=== PATIENT | female | born 1945 | race Caucasian/White ===

== ENCOUNTER 2019-04-22 19:05 | Inpatient (IN) | payer MEDICARE, SELFPAY ==
[2019-04-22 19:06] VITALS: BP 153/59; PULSE 80; RESP 22; TEMP 36.2; O2SAT 98; BMI 24.3
--- NOTE | 2019-04-22 19:07 | EKG12_ITS ---
Test Reason : CP Blood Pressure : / mmHG Vent. Rate : 065 BPM Atrial Rate : 065 BPM P-R Int : 174 ms QRS Dur : 074 ms QT Int : 398 ms P-R-T Axes : 050 -33 008 degrees QTc Int : 413 ms Sinus rhythm with marked sinus arrhythmia Left axis deviation Inferior infarct , age undetermined Abnormal ECG Confirmed by ATUL MEYERS, KATHY ([id number]), pictures editor EMILY CAVANAUGH ([id number]) on 04/24/2019 1:13:06 PM Referred By: Bee Prescott Confirmed By:KATHY POLLARD MD
--- NOTE | 2019-04-22 19:07 | RAD_ITS ---
STUDY: X-RAY CHEST REASON FOR EXAM: Female, 74 years old. CHEST PAIN, QUESTIONABLE STEMI TECHNIQUE: Single frontal view of the chest. COMPARISON: None. FINDINGS: Left basilar atelectasis. There is no demonstrated pleural abnormality. Normal size heart. Normal mediastinum and leyla. Normal visualized pulmonary arteries. Normal visualized aortic arch and descending thoracic aorta. Normal visualized thoracic spine. Normal visualized ribs, clavicles, and shoulders. There is no demonstrated abnormality of the visualized soft tissue structures of the upper abdomen. RAD/Chest 1 View (Portable) IMPRESSION: Left basilar atelectasis. Electronically Signed: Vladimir Alaniz MD at 19:38 EST Tel , Service support ,
[2019-04-22 19:08] VITALS: BP 153/59; PULSE 73; RESP 16; O2SAT 100
--- NOTE | 2019-04-22 19:16 | ED.RN ---
UPON ARRIVAL TO ER AND EKG DR MORGAN STATES PATIENT IS NOT CURRENTLY A STEMI. RN WILL CONTINUE TO MONITOR PATIENT.
--- NOTE | 2019-04-22 19:18 | ED.VISSUMM ---
- ER Visit Summary Date of Service: 04/22/19 Chief Complaint: Chest pain History of Present Illness: The patient is a 74 F history of diabetes hypertension high cholesterol. Patient states that she had a prior heart cath prior to her hip fracture in the past. She denies any history of cardiac disease or stents. She denies any recent exertional chest pain or exertional dyspnea. She denies any recent hospitalization or travel. She did recently have teeth extracted. She denies any leg pain or swelling. No hemoptysis. No pleuritic pain. She is never had a DVT or PE. Recently she had teeth extracted she took ibuprofen tonight for jaw discomfort. Today after she took that she started getting chest pain and then started having nausea vomiting. Associated chest pain with diaphoresis and mild shortness of breath. Lino said initial EKG was concerning for ST elevation in anterior leads with reciprocal inferior changes and they sent a second EKG was much improved and a third which was basically resolved Physical Examination: Older female no acute distress vital signs are stable afebrile. Initial blood pressure 153/59. H EENT exam unremarkable except recently extracted dentition. No significant facial swelling. Neck nontender. No lymphadenopathy. Lungs clear to auscultation bilaterally. Heart regular rate and rhythm rate of about 65 no murmur. Chest wall nontender. No signs of trauma. No ecchymosis or bruising no subcu air or crepitus. Abdomen soft nontender normal bowel sounds no peritoneal signs. Extremities moves all 4. Calves nontender no edema or cords. Radial pulses equal and symmetrical. Neurologically the patient is awake and alert with no focal motor deficits. Test Results: Initial EKG shows sinus rhythm rate of 65. On this EKG there is no ST elevation. Chest x-ray shows no acute abnormality. Normal cardiac silhouette portable 1 view read both myself and radiologist. CBC white count of 12. Hemoglobin 12. Electrolytes unremarkable BUN is 16 creatinine 1.3. Gap of 8. Troponin normal. Emergency Department Course and Treatment: Patient was treated with aspirin prior to arrival by the lino. An inch of Nitropaste will be placed. She is being placed in the chest pain protocol will need to be admitted. I have already discussed her initial presentation with the on-call ST elevation stone layer and will call him back now that she is arrived and I have examined the patient and have an emergency department EKG. Treatment Plan: Discussed the care a second time with Dr. Weber of cardiology. Patient will be started on heparin bolus and drip for an acute coronary symptom. And also p.o. Brilinta. Already received aspirin. And had a topical nitro on. Her pain is almost completely resolved. Disposition: Admission Impression: Acute chest pain Acute coronary syndrome. This note was generated with [employer] dictation software. It may contain incorrect words, spelling, and punctuation that were not noted in review of the chart prior to signing ED Disposition - Plan for ED Patient: Referrals: [facility] Doctor,Out of [NON-STAFF] -
[2019-04-22 19:24] VITALS: BP 153/59; PULSE 77
[2019-04-22] MEDS: Nitroglycerin Oint 1 INCH PACKET TRANSDERM. (19:24)
[2019-04-22 19:25] LABS: Absolute Lymphocyte Count 2.37 X10^3/uL (0.83-4.51); Absolute Neutrophil Count 9.2 X10^3/uL (2.0-7.7); Basophil# 0.04 X10^3/uL; Basophil% 0.3 % (0-1); Eosinophil# 0.14 X10^3/uL; Eosinophils% 1.1 % (0-5); Hematocrit 37.2 % (37-47); Hemoglobin 12.1 g/dL (12.0-15.0); Lymphocyte # 2.37 X10^3/ul (4.0); Lymphocyte % 18.5 % (19-41); Mean Corp Hgb Conc 32.5 g/dL (32-36); Mean Corpuscular Hgb 29.9 pg (27.0-32.0); Mean Corpuscular Volume 91.9 fL (81-99); Mean Platelet Vol. 10.2 fl (6.2-12.0); Monocyte# 1.07 X10^3/uL; Monocyte% 8.3 % (0-10); NRBC Flagged by Analyzer 0 % (0-5); Neutrophil # 9.17 X10^3/uL (2.7-7.7); Neutrophil % 71.5 % (47-70); Platelet Count 282 K/mm3 (150-450); RBC Distribution Width CV 11.9 % (11.6-14.6); RBC Distribution Width SD 40.3 fl (35.1-43.9); Red Blood Count 4.05 M/mm3 (4.2-5.4); White Blood Count 12.8 K/mm3 (4.4-11.0)
[2019-04-22 19:59] LABS: Anion Gap 8 (5-15); BUN 16 mg/dL (7-18); BUN/Creat Ratio 11.9 RATIO (10-20); Calcium,Total 9.5 mg/dL (8.5-10.1); Chloride 105 mmol/L (98-107); Creatinine, Serum 1.34 mg/dL (0.55-1.02); EST Glomerular Filtration Rate 41 mL/min (>60); Est Glom Filt Rate - Afr Amer 50 mL/min (>60); Estimated Creatinine Clearance 40.43 ml/min; Glucose 166 mg/dL (74-106); Potassium 4.2 mmol/L (3.5-5.1); Sodium Level 139 mmol/L (136-145)
[2019-04-22 20:00] VITALS: BP 135/56; PULSE 83; RESP 17; O2SAT 99
[2019-04-22] MEDS: TICAGRELOR 90 MG TABLET 180 MG PO (20:27)
[2019-04-22] MEDS: Heparin Injection (Vial) 5,000 UNIT/ML VIAL 5000 UNIT IV (20:30)
[2019-04-22] MEDS: HEPARIN/D5w 25,000 UNITS 25,000 UNITS/250 ML IV.SOLN. 11 UNITS IV (20:33)
[2019-04-22 20:40] VITALS: BP 129/87; PULSE 76; RESP 16; O2SAT 99
[2019-04-22 20:55] LABS: Partial Thromboplast Time 29.2 Seconds (24.1-36.2)
--- NOTE | 2019-04-22 22:13 | PCM.HP.STD ---
Problem List (1) Unstable angina Status: Acute (2) HTN (hypertension) Status: Chronic (3) Diabetes Status: Chronic History of Present Illness Date of Admission: 04/22/19 Chief Complaint: chest pain The patient is a 74 year old F with a significant history of urgency disease; diabetes mellitus; hypertension; hyperlipidemia and CKD who presented with excruciating substernal chest pain that started less than 5 minutes after taking ibuprofen for jaw pain secondary to to having multiple teeth pulled out. Her chest pain felt like somebody sitting on her chest. It also felt like she was in a vise. A chest pain was nonradiating.. Her symptoms started on the same day of presentation. Patient had 13 teeth pulled out 3 days ago. Because she typically has abdominal upset with ibuprofen she ate Jell-O after which she took the ibuprofen. After taking the ibuprofen she had nausea and she vomited 2 times. Also she had chest pain as stated above. Further she had shortness of breath and it was difficult for her to talk. Further she had diaphoresis. At the field initial EKG by the paramedics showed ST elevation in anterior leads. A second EKG showed ST elevation resolving. And and a third EKG showed a completely resolved ST elevation. Emergent department doctor discussed the case with a veterinary receptionist. Patient had already received 3 baby aspirin by the paramedics. At the emergency department patient was given Brilinta and was given heparin bolus and drip. Also nitroglycerin paste was placed on her chest. EKG at the emergency department showed Q waves in inferior leads. Past Medical History Past Medical History (Chronic Problems): Chronic Problems HTN (hypertension) (Chronic) Diabetes (Chronic) Allergies famotidine Allergy (Verified 04/22/19 19:23) Other shellfish derived Allergy (Verified 04/22/19 19:23) Anaphylaxis Home Medications: Ambulatory Orders Medication Instructions Recorded Amlodipine [Norvasc] 5 mg PO QHS 04/22/19 Aspirin [Adult Low Dose Aspirin EC] 81 mg PO DAILY 04/22/19 Atorvastatin Calcium 40 mg PO QHS 04/22/19 Carbidopa/Levodopa [Sinemet 1 tab PO TID 04/22/19] Ergocalciferol [Vitamin D] 1 cap PO QMONTH 04/22/19 Losartan Potassium [Cozaar] 12.5 mg PO QHS 04/22/19 Metformin HCl 850 mg PO BIDAC 04/22/19 traMADol [Ultram] 50 mg PO QHS PRN PRN 04/23/19 Surgical History: - - Multiple teeth pulled out and now with dentures Lives: Alone Smoking Status: Current every day smoker Tobacco Use: Vapor Alcohol: None - *Family History Maternal History Items: Cancer Paternal History Items: Pulmonary Disease Review of Systems Constitutional: Denies: Chills, Fever, Weight Change HEENT: Denies: Head Aches, Sinus Congestion, Sinus Drainage Cardiovascular: Reports: Chest Pain. Denies: Palpitations Respiratory: Reports: Shortness of Breath. Denies: Cough, Shortness of breath at rest, Sputum production Gastrointestinal: Reports: Nausea, Vomiting. Denies: Abdominal Pain Genitourinary: Denies: Dysuria Musculoskeletal: Denies: Joint Pain, Joint Tenderness Skin: Denies: Rash, Wounds Neurological: Denies: Numbness, Tingling, Focal weakness Psychiatric: Denies: Anxiety, Depression, Homicidal Ideations, Suicidal Ideations Hematologic/ Lymphatic: Denies: Easy Bruising, Easy Bleeding VTE Information - Inpt Only VTE Present on Admission: No VTE Mechan Device Prophylaxis: None VTE Pharm Prophylaxis ordered?: Yes Patient Problems: Active and Suspected Problems Unstable angina (Acute) - Physical Exam Vitals/I&O's: Vital Signs Temp Pulse Resp BP Pulse Ox 97.1 F L 76 16 129/87 H 99 04/22/19 19:06 04/22/19 20:40 04/22/19 20:40 04/22/19 20:40 04/22/19 20:40 Oxygen Flow Rate (L/min) 2 Oxygen Delivery Method Nasal Cannula Weight: 76.8 kg Body Mass Index (BMI) 24.3 General: Alert, Oriented x3, Cooperative HEENT: Atraumatic, PERRLA, EOMI, Normocephalic Neck: Supple, No JVD, Negative Carotid Bruits Lungs: Clear to auscultation, Normal air movement Cardiovascular: Regular rate, No murmurs Abdomen: Bowel Sounds Present, Soft, Non Tender Extremities: No edema, Capillary Refill Less than 3 Seconds Skin: No rashes, No breakdown Musculoskeletal: No Tenderness to Palpation of Joints or Extremities Neurological: Cranial nerves II-XII grossly intact Psych/Mental Status: Normal Affect, Appropriate Laboratory Results 04/22/19 19:12: WBC 12.8 H, RBC 4.05 L, Hgb 12.1, Hct 37.2, MCV 91.9, MCH 29.9, MCHC 32.5, RDW Std Deviation 40.3, RDW Coeff of Abbie 11.9, Plt Count 282, MPV 10.2, Immature Gran % (Auto) 0.300, Neut % (Auto) 71.5 H, Lymph % (Auto) 18.5 L, [place] % (Auto) 8.3, Eos % (Auto) 1.1, Baso % (Auto) 0.3, Absolute Neuts (auto) 9.2 H, Absolute Lymphs (auto) 2.37, Nucleated RBC % 0 04/22/19 19:12: Sodium 139, Potassium 4.2, Chloride 105, Carbon Dioxide 26.0, Anion Gap 8, BUN 16, Creatinine 1.34 H, Estim Creat Clear Calc 40.43, Est GFR (MDRD) Af Amer 50 L, Est GFR (MDRD) Non-Af 41 L, BUN/Creatinine Ratio 11.9, Glucose 166 H, Calcium 9.5, Troponin I < 0.015 04/22/19 19:12: APTT 29.2 Current Medications Heparin Sodium (Porcine) (Heparin Na) 0 unit IV UD PRN; Protocol Heparin Sodium/Dextrose () 25,000 units in 250 mls @ 11 mls/hr IV .[id number] [facility]; Protocol Last Admin: 04/22/19 20:33 Dose: 1,100 units/hr, 11 mls/hr Documented by: Assessment/Plan All Active Problems Unstable angina (Acute) The patient is a 74 year old F with a significant history of urgency disease; diabetes mellitus; hypertension; hyperlipidemia and CKD who presented with excruciating substernal chest pain that started less than 5 minutes after taking ibuprofen for jaw pain secondary to to having multiple teeth pulled out concerning for unstable angina. NSTEMI Place on a monitored bed at PCU CXR independently reviewed confirms no acute cardiopulmonary process. EKG at the ED independently reviewed confirms q-waves in inferior leads. EKG on the first showed ST elevation [place] which resolved. ASA 81 mg p.o. daily Nitroglycerin paste was placed from the ED; continued. We will check lipid panel. Statin: Start on high intensity statin Anticoagulation: Received heparin bolus and started on a drip from the ED; continued Anti-P2Y12 Receptor antibody: Received a loading dose of Brilinta at emergency department. Continue maintenance dose. Serial cardiac enzymes Stat EKG as needed for chest pain Cardiology consult. Clear liquid after midnight. Diabetes mellitus with nephropathy Hyperglycemia on presentation Blood glucose on presentation was 166. Hold home oral hypoglycemic (metformin) regimen. Accu-Chek every 6 hours. Placed on correction scale insulin. HTN On presentation her blood pressure was not within goal Amlodipine continued. Hold losartan because of VICKI. Trend blood pressure and adjust blood pressure medication.. Labetalol ordered. VICKI on CKD stage III CKD Stage III due to hypertension and diabetes nephropathy Review of community EMR ([employer]) showed a creatinine on 01/12/2019 was 1.0. On presentation her creatinine was 1.34 BUN is 16. BUN over creatinine is 11.9. We will IV hydration. Avoid nephrotoxic's. Home Cozaar held. Tobacco abuse Previously used to smoke cigarettes. Now She uses the vapor. Counseled. DVT prophylaxis ordered Not indicated since patient has been started on heparin drip. Code Visit Inpatient E&M: 17292 Init Hosp L3
--- NOTE | 2019-04-22 22:56 | EKG12_ITS ---
Test Reason : CP ADMIT Blood Pressure : / mmHG Vent. Rate : 068 BPM Atrial Rate : 068 BPM P-R Int : 188 ms QRS Dur : 076 ms QT Int : 400 ms P-R-T Axes : 041 -27 052 degrees QTc Int : 425 ms Normal sinus rhythm Inferior infarct , age undetermined Abnormal ECG When compared with ECG of 30-APR-2008 01:22, Nonspecific T wave abnormality now evident in Anterolateral leads Confirmed by ATUL MEYERS, KATHY ([id number]), medical editor DUNG DIA ([id number]) on 04/25/2019 12:31:34 PM Referred By: Bee Prescott Confirmed By:KATHY POLLARD MD
[2019-04-22 23:00] VITALS: BP 155/58; PULSE 68; RESP 18; TEMP 36.9; O2SAT 98
[2019-04-22 23:12] VITALS: BMI 24.3; BMI 26.9
[2019-04-22] MEDS: 0.9% Normal Saline 1,000 ML 75 ML IV (23:46)
[2019-04-23] VITALS (19 sets, daily range): BP systolic 120–175; BP diastolic 65–85; PULSE 65–92; RESP 16–18; TEMP 36.3–36.6; O2SAT 93–97
[2019-04-23] MEDS: Insulin Lispro 100 UNIT/ML INSULN.PEN SC ×2 (00:19→12:54)
[2019-04-23] MEDS: Nitroglycerin Oint 1 INCH PACKET TRANSDERM. ×3 (00:24→13:00)
[2019-04-23 00:30] LABS: Bedside Glucose 210 mg/dL (70-110)
[2019-04-23] MEDS: amLODIPine 5 MG Tablet PO (02:08)
[2019-04-23 03:31] LABS: Partial Thromboplast Time 224.3 Seconds (24.1-36.2)
[2019-04-23] MEDS: Carbidopa/Levodopa 25/100 Tablet PO ×3 (06:37→16:53)
[2019-04-23 06:43] LABS: Absolute Lymphocyte Count 1.82 X10^3/uL (0.83-4.51); Absolute Neutrophil Count 6.7 X10^3/uL (2.0-7.7); Basophil# 0.03 X10^3/uL; Basophil% 0.3 % (0-1); Eosinophil# 0.05 X10^3/uL; Eosinophils% 0.5 % (0-5); Hematocrit 31.6 % (37-47); Hemoglobin 10.5 g/dL (12.0-15.0); Lymphocyte # 1.82 X10^3/ul (4.0); Lymphocyte % 19.1 % (19-41); Mean Corp Hgb Conc 33.2 g/dL (32-36); Mean Corpuscular Hgb 30.1 pg (27.0-32.0); Mean Corpuscular Volume 90.5 fL (81-99); Mean Platelet Vol. 10.9 fl (6.2-12.0); Monocyte# 0.87 X10^3/uL; Monocyte% 9.1 % (0-10); NRBC Flagged by Analyzer 0 % (0-5); Neutrophil # 6.71 X10^3/uL (2.7-7.7); Neutrophil % 70.5 % (47-70); Platelet Count 244 K/mm3 (150-450); RBC Distribution Width CV 11.9 % (11.6-14.6); Red Blood Count 3.49 M/mm3 (4.2-5.4); White Blood Count 9.5 K/mm3 (4.4-11.0)
[2019-04-23 06:45] LABS: International Normalized Ratio 1.1; Prothrombin Time (Protime)PT. 14.3 SECONDS (11.7-14.9)
[2019-04-23 06:50] LABS: Bedside Glucose 110 mg/dL (70-110)
[2019-04-23 07:03] LABS: Anion Gap 8 (5-15); BUN 17 mg/dL (7-18); Calcium,Total 8.8 mg/dL (8.5-10.1); Chloride 110 mmol/L (98-107); Cholesterol 119 mg/dL (200); Creatinine, Serum 1.06 mg/dL (0.55-1.02); EST Glomerular Filtration Rate 54 mL/min (>60); Est Glom Filt Rate - Afr Amer 65 mL/min (>60); Estimated Creatinine Clearance 42.53 ml/min; Glucose 120 mg/dL (74-106); High Density Lipoprotein 62 mg/dL; Potassium 3.8 mmol/L (3.5-5.1); Sodium Level 141 mmol/L (136-145); Triglycerides 103 mg/dL; Very Low Density Lipoprotein 21 mg/dL (5-40)
[2019-04-23 08:47] LABS: Partial Thromboplast Time 81.3 Seconds (24.1-36.2)
[2019-04-23] MEDS: Aspirin 81 MG TAB.CHEW PO (09:27)
[2019-04-23] MEDS: TICAGRELOR 90 MG TABLET PO (09:29)
--- NOTE | 2019-04-23 09:35 | NURSING ---
dario from medical lab specialist on way in and report given. heparin gtt stopped per protocol. pt talking with family on phone. no questions voiced. watched heart cath video on ipad. medical lab specialist aware that no consent signed yet.
--- NOTE | 2019-04-23 10:30 | CON.PCM_ITS ---
Problem List (1) NSTEMI (non-ST elevated myocardial infarction) Status: Acute Reason for Consult Date of Consultation: 04/23/19 Reason for Consultation: nstemi History of Present Illness: The patient is a 74 year old F with a significant history of urgency disease; diabetes mellitus; hypertension; hyperlipidemia and CKD who presented with excruciating substernal chest pain that started less than 5 minutes after taking ibuprofen for jaw pain secondary to to having multiple teeth pulled out. Her chest pain felt like somebody sitting on her chest. It also felt like she was in a vise. A chest pain was nonradiating.. Her symptoms started on the same day of presentation. Patient had 13 teeth pulled out 3 days ago. Because she typically has abdominal upset with ibuprofen she ate Jell-O after which she took the ibuprofen. After taking the ibuprofen she had nausea and she vomited 2 times. Also she had chest pain as stated above. Further she had shortness of breath and it was difficult for her to talk. Further she had diaphoresis. At the field initial EKG by the paramedics showed ST elevation in anterior leads. A second EKG showed ST elevation resolving. And and a third EKG showed a completely resolved ST elevation. Initially a STEMI alert was called. However a second EKG done soon after the initial EKG that showed ST elevation did not show a STEMI pattern on the EKG. By this time the patient had not arrived to the ER. After discussing with the ER doctor the STEMI alert was canceled and the patient was evaluated in the ER upon arrival. Patient's chest pain was resolving by then. There was no ST elevation on the EKG. Patient was admitted to the PCU for management of unstable angina/non-ST elevation AZ. Initial troponin was negative but a subsequent troponin level was elevated. Patient has remained chest pain-free since admission to the PCU. View of systems: All systems reviewed. All else is negative except that in the HPI. Past Medical History Allergies/Adverse Reactions: Allergies famotidine Allergy (Verified 04/22/19 23:15) Other shellfish derived Allergy (Verified 04/22/19 23:15) Anaphylaxis Home Medications: Ambulatory Orders Medication Instructions Recorded Amlodipine [Norvasc] 5 mg PO QHS 04/22/19 Aspirin [Adult Low Dose Aspirin EC] 81 mg PO DAILY 04/22/19 Atorvastatin Calcium 40 mg PO QHS 04/22/19 Carbidopa/Levodopa [Sinemet 1 tab PO TID 04/22/19] Ergocalciferol [Vitamin D] 1 cap PO QMONTH 04/22/19 Losartan Potassium [Cozaar] 12.5 mg PO QHS 04/22/19 Metformin HCl 850 mg PO BIDAC 04/22/19 traMADol [Ultram] 50 mg PO QHS PRN PRN 04/23/19 Past Medical History (Chronic Problems): Chronic Problems HTN (hypertension) (Chronic) Diabetes (Chronic) Surgical History: - - Multiple teeth pulled out and now with dentures - *Family History Maternal History Items: Cancer Paternal History Items: Pulmonary Disease Lives: Alone Smoking Status: Current every day smoker Tobacco Use: Vapor Alcohol: None Objective: Vital Signs Temp Pulse Resp BP Pulse Ox 97.4 F L 76 18 120/67 95 04/23/19 04:45 04/23/19 09:00 04/23/19 04:45 04/23/19 04:45 04/23/19 04:45 Oxygen Flow Rate (L/min) 2 Oxygen Delivery Method Room Air Weight: 161 lb 9.581 oz Body Mass Index (BMI) 26.9 Intake and Output for Last 24 Hours 04/21/19 04/22/19 04/23/19 23:59 23:59 23:59 Intake Total 83.06 / 83.06 Balance 83.06 / 83.06 General: Awake, Alert, Oriented x 3 HEENT: Atraumatic Oral: Moist Mucosa Neck: Supple Lungs: Clear to auscultation Cardiovascular: Regular Rhythm Abdomen: Soft Extremities: No edema Skin: No Rashes Psych/Mental Status: Appropriate 04/22/19 19:12: WBC 12.8 H, RBC 4.05 L, Hgb 12.1, Hct 37.2, MCV 91.9, MCH 29.9, MCHC 32.5, Plt Count 282, MPV 10.2, Immature Gran % (Auto) 0.300, Neut % (Auto) 71.5 H, Lymph % (Auto) 18.5 L, [place] % (Auto) 8.3, Eos % (Auto) 1.1, Baso % (Auto) 0.3, Absolute Neuts (auto) 9.2 H, Nucleated RBC % 0 04/22/19 19:12: Sodium 139, Potassium 4.2, Chloride 105, Carbon Dioxide 26.0, Anion Gap 8, BUN 16, Creatinine 1.34 H, Est GFR (MDRD) Af Amer 50 L, Est GFR (MDRD) Non-Af 41 L, BUN/Creatinine Ratio 11.9, Glucose 166 H, Calcium 9.5, Troponin I < 0.015 04/22/19 19:12: APTT 29.2 04/22/19 23:15: Troponin I 6.350 H* 04/23/19 02:25: APTT 224.3 H* 04/23/19 05:04: Sodium 141, Potassium 3.8, Chloride 110 H, Carbon Dioxide 23.0, Anion Gap 8, BUN 17, Creatinine 1.06 H, Est GFR (MDRD) Af Amer 65, Est GFR (MDRD ) Non-Af 54 L, BUN/Creatinine Ratio 16.0, Glucose 120 H, Calcium 8.8, Triglycerides 103, Cholesterol 119, LDL Cholesterol 36, VLDL Cholesterol 21, HDL Cholesterol 62 04/23/19 05:04: WBC 9.5, RBC 3.49 L, Hgb 10.5 L, Hct 31.6 L, MCV 90.5, MCH 30.1, MCHC 33.2, Plt Count 244, MPV 10.9, Immature Gran % (Auto) 0.500, Neut % (Auto) 70.5 H, Lymph % (Auto) 19.1, [place] % (Auto) 9.1, Eos % (Auto) 0.5, Baso % (Auto) 0.3, Absolute Neuts (auto) 6.7, Nucleated RBC % 0 04/23/19 05:04: PT 14.3, INR 1.1 04/23/19 05:04: Troponin I 10.800 H* 04/23/19 08:00: APTT 81.3 H Rhythm: EKG: ECHO: Stress Test: Cardiac Cath: PCI: CT Surgery: Holter monitor: EPS: PPM: CXR: Chest CT Scan: Assessment/Plan 1. Non-ST elevation AZ: Patient is on dual antiplatelet therapy, statin and heparin. She has remained asymptomatic overnight. We will proceed with coronary angiography. Rest of the management will be based on coronary angiography findings. Risks and benefits discussed in detail with the patient. Patient is willing to proceed.
--- NOTE | 2019-04-23 11:25 | CASEMGMT ---
Insurance review for IN-network facilities for per [place] Website if transfer is recommended is as follows: [facility] ([facility]), [facility] ([facility]), [facility], [facility], [facility], [facility], [facility], [facility], [facility] Nela SOMMER RN CM
[2019-04-23 11:31] LABS: ACT Activated Clotting Time 186 sec (74-137)
--- NOTE | 2019-04-23 12:03 | CL.D_ITS ---
Patient Name: HERNAN CHAVIRA Study Date: 04/23/2019 Performing: Rahul Prescott MD Ht: 65 inches 165 cm : 1945 Wt: 161.1 lbs 73 kg Age: 74 Gender: female BSA: 1.8 PROCEDURE(S) PERFORMED [id number]-[id number]/COR/LV CLINICAL PROFILE AND INDICATIONS Indications: ACS <= 24 hrs Heart Failure: None Stress/Imaging Stress/Image Study Performed: No CONCLUSIONS [place] Multivessel CAD. LVEF is around 50%. No significant or MR RECOMMENDATIONS Surgery consult for coronary revascularization DESCRIPTION OF PROCEDURE The patient arrived to the procedure lab. The risks and benefits of the procedure as well as a full d escription of our services here and current unavailability of surgical backup were fully explained to the patient and/or their significant other prior to the catheterization. The Timeout was completed, verifying the correct patient and procedure. The patient's procedural site was prepped and draped in the usual fashion. Local anesthetic was given subcutaneously to right radial region with Lidocaine 2% . Local anesthetic was given subcutaneously to right groin region with Lidocaine 2%. Using a modified Seldinger technique, arterial access was obtained via the right radial artery, a 6Fr sheath was inse rted., arterial access was obtained via the right femoral artery, a 5Fr sheath was inserted. Left Co ronary Artery selective angiography was performed in multiple views using a 5 Fr. JL3.5 catheter. Rig ht Coronary Artery selective angiography was then performed in multiple views using a 5 Fr. JR 4 catheter. Left Ventriculography was performed in PENALOZA projection using a 5 Fr. JR4 catheter. LV to AO pullback pressures were then recorded.Contrast was injected through the sheath and the Right Iliac and Femoral artery were assessed for possible closure device.The arterial sheath was pulled an d a TR Band was applied for hemostasis. 14 cc of air. The arterial sheath was pulled and a Starclose closure device was deployed for hemostasis CORONARY ANGIOGRAPHY DOMINANCE: Right Dominant LEFT HEART ASSESSMENT Left Ventricular Ejection Fraction: by LV Gram 50 % mild hypokinesis of the anterior wall. LEFT MAIN: 40-50 % Stenosis in the distal portion LEFT ANTERIOR DESCENDING ARTERY: PROX LAD: 90 % Stenosis MID LAD: 80 % Stenosis CIRCUMFLEX ARTERY: PROX CIRC: 80 % Stenosis MID CIRC: 80 % Stenosis OM 1: Ostial - 80 % Stenosis RAMUS: 60-70 % Stenosis in the proximal portion RIGHT CORONARY ARTERY: PROX RCA: 80 % Stenosis MID RCA: 95 % Stenosis VALVE FINDINGS: No Aortic Valve Stenosis No Mitral Insufficency COMPLICATIONS No Complications PROCEDURE MEDICATIONS Versed 1 mg IV Fentanyl 50 mcg IV Oxygen: 2 L/min via nasal cannula Heparin given IA 04/23/2019 10:41:55 Solu-medrol 125 mg IV 04/23/2019 10:31:20 Verapamil 2.5mg, Ntg 100mcgs, 3000 units of Heparin given IA 04/23/2019 10:41:55 SUMMARY OF HEMODYNAMIC DATA Time AIR REST ECG 10:29:52 AO 168/66 (111) SA 10:58:56 LV 181/0, 14 11:06:45 LV 185/2, 13 11:06:51 LVp 185/-5, 30 11:07:29 AOp 185/54 (106) 11:07:35 Signed By Rahul Prescott MD On 04/23/2019 12:02:23 PM Rahul Prescott MD
--- NOTE | 2019-04-23 12:10 | CPS ---
SMI PLACED AT BEDSIDE. PT IN [employer]ER
[2019-04-23] MEDS: 0.9% Normal Saline 500 ML IV.SOLN. IV (12:34)
[2019-04-23] MEDS: 0.9% Normal Saline 1,000 ML 60 ML IV (12:35)
[2019-04-23 13:21] LABS: Bedside Glucose 165 mg/dL (70-110)
--- NOTE | 2019-04-23 13:56 | PCM.DC.SUM ---
<Van Srinivasan - Last Filed: 04/23/19 13:56> Discharge Date and Diagnosis - Problem List Patient Problems: Active and Suspected Problems Unstable angina (Acute) NSTEMI (non-ST elevated myocardial infarction) (Acute) Date of Admission: 04/22/19 Date of Discharge: 04/23/19 - Primary Discharge Diagnosis Active and Suspected Problems Unstable angina (Acute) NSTEMI (non-ST elevated myocardial infarction) (Acute) VICKI on CKDIII HTN DMt2 Ongoing nicotine abuse - Secondary Discharge Diagnosis Chronic Problems HTN (hypertension) (Chronic) Diabetes (Chronic) Hospital Course and Treatment Imaging Results: DIAGNOSTICS: RAD/Chest 1 View (Portable) IMPRESSION: Left basilar atelectasis. Left heart cath: CONCLUSIONS [place] Multivessel CAD. LVEF is around 50%. No significant or MR RECOMMENDATIONS Surgery consult for coronary revascularization CORONARY ANGIOGRAPHY DOMINANCE: Right Dominant LEFT HEART ASSESSMENT Left Ventricular Ejection Fraction: by LV Gram 50 % mild hypokinesis of the anterior wall. LEFT MAIN: 40-50 % Stenosis in the distal portion LEFT ANTERIOR DESCENDING ARTERY: PROX LAD: 90 % Stenosis MID LAD: 80 % Stenosis CIRCUMFLEX ARTERY: PROX CIRC: 80 % Stenosis MID CIRC: 80 % Stenosis OM 1: Ostial - 80 % Stenosis RAMUS: 60-70 % Stenosis in the proximal portion RIGHT CORONARY ARTERY: PROX RCA: 80 % Stenosis MID RCA: 95 % Stenosis Consultations: Cardiology - [place] Operations: None Procedures: Cardiac catheterization Summary of Care Provided: Hospital course: The patient is a 74 year old F with pmhx of ongoing nicotine abuse, htn, DMt2, CKDIII who presented to the ER with c/o chest pain.. This was described as a substernal chest pain that also felt like somebody sitting on her chest or like being in a vice. It started 5 minutes after taking ibuprofen for jaw pain which she associated with having teeth pulled recently. She had some associated nausea and vomiting. Reportedly the EKG done by paramedics showed some ST elevation in the anterior leads. In the ER she was given nitro paste, and had elevated troponin, Q waves on EKG. She was admitted for NSTEMI. Cardiology was consulted. Troponin peaked at 10.800. She was placed on heparin drip and loaded with brillinta, she was also started on aspirin and statin. The following day she was taken for left heart catheterization and found to have severe multivessel disease warranting surgical consultation (this included proximal LAD 90% stenosis, mid LAD 80% stenosis, proximal circumflex 80%, mid circumflex 80%, OM1 80%, ramus 60 to 70%, proximal RCA 80%, mid RCA 95%). She was accepted at the [facility]. She was discharged when bed became available. Further care and follow-up as directed by accepting facility. This patient was seen by Van Srinivasan PA-C under the supervision of Doctor Isaak. [] Patient Problems: Active and Suspected Problems Unstable angina (Acute) NSTEMI (non-ST elevated myocardial infarction) (Acute) - Physical Exam Vitals/I&O's: Vital Signs Temp Pulse Resp BP Pulse Ox 97.7 F L 92 16 172/71 H 94 04/23/19 12:25 04/23/19 13:34 04/23/19 13:34 04/23/19 13:34 04/23/19 13:34 Oxygen Flow Rate (L/min) 2 Oxygen Delivery Method Nasal Cannula Weight: 161 lb 9.581 oz Body Mass Index (BMI) 26.9 Intake and Output for Last 24 Hours 04/21/19 04/22/19 04/23/19 23:59 23:59 23:59 Intake Total 133.06 / 133.06 Balance 133.06 / 133.06 General: Alert, Oriented x3, Cooperative HEENT: Atraumatic, PERRLA, EOMI, Normocephalic Neck: Supple, No JVD, Negative Carotid Bruits Lungs: Clear to auscultation, Normal air movement Cardiovascular: Regular rate, No murmurs Abdomen: Bowel Sounds Present, Soft, Non Tender Extremities: No edema, Capillary Refill Less than 3 Seconds Skin: No rashes, No breakdown Musculoskeletal: No Tenderness to Palpation of Joints or Extremities Neurological: Cranial nerves II-XII grossly intact Psych/Mental Status: Normal Affect, Appropriate Laboratory Results 04/22/19 19:12: WBC 12.8 H, RBC 4.05 L, Hgb 12.1, Hct 37.2, MCV 91.9, MCH 29.9, MCHC 32.5, RDW Std Deviation 40.3, RDW Coeff of Abbie 11.9, Plt Count 282, MPV 10.2, Immature Gran % (Auto) 0.300, Neut % (Auto) 71.5 H, Lymph % (Auto) 18.5 L, [place] % (Auto) 8.3, Eos % (Auto) 1.1, Baso % (Auto) 0.3, Absolute Neuts (auto) 9.2 H, Absolute Lymphs (auto) 2.37, Nucleated RBC % 0 04/22/19 19:12: Sodium 139, Potassium 4.2, Chloride 105, Carbon Dioxide 26.0, Anion Gap 8, BUN 16, Creatinine 1.34 H, Estim Creat Clear Calc 40.43, Est GFR (MDRD) Af Amer 50 L, Est GFR (MDRD) Non-Af 41 L, BUN/Creatinine Ratio 11.9, Glucose 166 H, Calcium 9.5, Troponin I < 0.015 04/22/19 19:12: APTT 29.2 04/22/19 23:15: Troponin I 6.350 H* 04/23/19 00:18: POC Glucose 210 H 04/23/19 02:25: APTT 224.3 H* 04/23/19 05:04: Sodium 141, Potassium 3.8, Chloride 110 H, Carbon Dioxide 23.0, Anion Gap 8, BUN 17, Creatinine 1.06 H, Estim Creat Clear Calc 42.53, Est GFR (MDRD) Af Amer 65, Est GFR (MDRD) Non-Af 54 L, BUN/Creatinine Ratio 16.0, Glucose 120 H, Calcium 8.8, Triglycerides 103, Cholesterol 119, LDL Cholesterol 36, VLDL Cholesterol 21, HDL Cholesterol 62 04/23/19 05:04: WBC 9.5, RBC 3.49 L, Hgb 10.5 L, Hct 31.6 L, MCV 90.5, MCH 30.1, MCHC 33.2, RDW Std Deviation 39.0, RDW Coeff of Abbie 11.9, Plt Count 244, MPV 10.9, Immature Gran % (Auto) 0.500, Neut % (Auto) 70.5 H, Lymph % (Auto) 19.1, [place] % (Auto) 9.1, Eos % (Auto) 0.5, Baso % (Auto) 0.3, Absolute Neuts (auto) 6.7, Absolute Lymphs (auto) 1.82, Nucleated RBC % 0 04/23/19 05:04: PT 14.3, INR 1.1 01/26/20 05:04: Troponin I 10.800 H* 04/23/19 06:33: POC Glucose 110 04/23/19 08:00: APTT 81.3 H 04/23/19 11:12: Activated Clotting Time 186 H 04/23/19 12:53: POC Glucose 165 H Current Medications Acetaminophen (Tylenol) 650 mg PO Q6H PRN PRN PRN Reason: Pain Score 1-3/Temp > 100.7 F Amlodipine Besylate (Norvasc) 5 mg PO QHS [facility] Last Admin: 04/23/19 02:08 Dose: 5 mg Documented by: Aspirin (Aspirin, Baby) 81 mg PO DAILY@0800 [facility] Last Admin: 04/23/19 09:27 Dose: 81 mg Documented by: Atorvastatin Calcium (Lipitor) 80 mg PO QHS [facility] Atropine Sulfate () 0.5 mg IV UD PRN PRN Reason: HR <50 bpm Carbidopa/Levodopa (Sinemet) 1 tablet PO TIDAC [facility] Last Admin: 04/23/19 12:54 Dose: 1 tablet Documented by: Dextrose (D50w Syringe) 0 gm IV X1 PRN; Protocol PRN Reason: Hypoglycemia Glucagon () 1 mg IM .X1 PRN PRN Reason: Hypoglycemia Heparin Sodium (Porcine) (Heparin Na) 0 unit IV UD PRN; Protocol Sodium Chloride () 250 mls @ 15 mls/hr IV .[id number] PRN PRN Reason: Saline Flush Sodium Chloride () 250 mls @ 15 mls/hr IV .[id number] PRN PRN Reason: Additional IVPB Infusion Sodium Chloride () 1,000 mls @ 60 mls/hr IV .[id number] [facility] Last Admin: 04/23/19 12:35 Dose: 60 mls/hr Documented by: Insulin Human Lispro (Humalog Kwikpen (Bkc)) 0 unit SC Q6 [facility]; Protocol Last Admin: 04/23/19 12:54 Dose: 1 units Documented by: Labetalol HCl (Trandate) 10 mg IV Q4H PRN PRN PRN Reason: SBP > 160 Nitroglycerin (Nitrobid) 1 inch TRANSDERM. Q6 [facility] Last Admin: 04/23/19 13:00 Dose: 1 inch Documented by: Ondansetron HCl (Zofran) 4 mg IV Q8H PRN PRN PRN Reason: NAUSEA/VOMITING Sodium Chloride () 10 - 40 ml IV UD PRN PRN Reason: SALINE FLUSH Sodium Chloride () 500 ml IV BOLUS PRN PRN Reason: VASO-VAGAL PROTOCOL Last Admin: 04/23/19 12:34 Dose: 500 ml Documented by: Ticagrelor (Brilinta) 90 mg PO BID [facility] Last Admin: 04/23/19 09:29 Dose: 90 mg Documented by: Tramadol HCl (Ultram) 25 mg PO QHS PRN PRN PRN Reason: Pain Score 1-10 Discharge Diet: - - As directed by receiving facility Discharge Activity: - - As directed by receiving facility Home Medications: Medications to take at Discharge Amlodipine [Norvasc] 5 mg PO QHS 04/22/19 Aspirin [Adult Low Dose Aspirin EC] 81 mg PO DAILY 04/22/19 Atorvastatin Calcium 40 mg PO QHS 04/22/19 Carbidopa/Levodopa / [Sinemet ] 1 tab PO TID 04/22/19 Ergocalciferol [Vitamin D] 1 cap PO QMONTH 04/22/19 Losartan Potassium [Cozaar] 12.5 mg PO QHS 04/22/19 Metformin HCl 850 mg PO BIDAC 04/22/19 traMADol [Ultram] 50 mg PO QHS PRN PRN 04/23/19 Primary Care Physician: Ashlyn Doctor,Out of [NON-STAFF] - Please follow up with your Primary Care Physician in: As directed Disposition: Acute care Hospital Minutes spent on discharge:: 35 Patient Condition:: Stable Medical Necessity - Tobacco Use Smoking Status: Current every day smoker Tobacco Use: Vapor Meaningful Use Info Meaningful Use Diagnoses (Choose all that apply): None applicable <Sukhdev Mulligan - Last Filed: 04/23/19 14:21> Discharge Date and Diagnosis - Primary Discharge Diagnosis Active and Suspected Problems Unstable angina (Acute) NSTEMI (non-ST elevated myocardial infarction) (Acute) - Secondary Discharge Diagnosis Chronic Problems HTN (hypertension) (Chronic) Diabetes (Chronic) Hospital Course and Treatment Operations: None Procedures: Cardiac catheterization Summary of Care Provided: Patient seen and examined independently. Data reviewed. I agree with the above note by the physician bookkeeper assistant. The patient is a 74 year old F presents with chest pain. Patient underwent a left heart catheterization given the fact that she had a non-STEMI. Patient was found to have multivessel coronary disease. Cardiology recommended transfer to tertiary facility for cardiothoracic evaluation. Patient was accepted at the [facility]. [] - Physical Exam Vitals/I&O's: Vital Signs Temp Pulse Resp BP Pulse Ox 36.5 C L 92 16 172/71 H 94 04/23/19 12:25 04/23/19 13:34 04/23/19 13:34 04/23/19 13:34 04/23/19 13:34 Oxygen Flow Rate (L/min) 2 Oxygen Delivery Method Nasal Cannula Weight: 73.3 kg Body Mass Index (BMI) 26.9 Intake and Output for Last 24 Hours 04/21/19 04/22/19 04/23/19 23:59 23:59 23:59 Intake Total 133.06 / 133.06 Balance 133.06 / 133.06 General: Alert, Cooperative HEENT: Atraumatic, Normocephalic Neck: No Nodes, Trachea Midline Lungs: Clear to auscultation, Normal air movement, No rhonchi, No wheeze Cardiovascular: Regular rate, Regular Rhythm, Normal S1, Normal S2, No murmurs Abdomen: Bowel Sounds Present, Soft, Non Tender, Non-Distended Extremities: No edema, No Calf Tenderness Skin: No rashes, No breakdown Psych/Mental Status: Normal Affect, Appropriate Laboratory Results 04/22/19 19:12: WBC 12.8 H, RBC 4.05 L, Hgb 12.1, Hct 37.2, MCV 91.9, MCH 29.9, MCHC 32.5, RDW Std Deviation 40.3, RDW Coeff of Abbie 11.9, Plt Count 282, MPV 10.2, Immature Gran % (Auto) 0.300, Neut % (Auto) 71.5 H, Lymph % (Auto) 18.5 L, [place] % (Auto) 8.3, Eos % (Auto) 1.1, Baso % (Auto) 0.3, Absolute Neuts (auto) 9.2 H, Absolute Lymphs (auto) 2.37, Nucleated RBC % 0 04/22/19 19:12: Sodium 139, Potassium 4.2, Chloride 105, Carbon Dioxide 26.0, Anion Gap 8, BUN 16, Creatinine 1.34 H, Estim Creat Clear Calc 40.43, Est GFR (MDRD) Af Amer 50 L, Est GFR (MDRD) Non-Af 41 L, BUN/Creatinine Ratio 11.9, Glucose 166 H, Calcium 9.5, Troponin I < 0.015 04/22/19 19:12: APTT 29.2 04/22/19 23:15: Troponin I 6.350 H* 04/23/19 00:18: POC Glucose 210 H 04/23/19 02:25: APTT 224.3 H* 04/23/19 05:04: Sodium 141, Potassium 3.8, Chloride 110 H, Carbon Dioxide 23.0, Anion Gap 8, BUN 17, Creatinine 1.06 H, Estim Creat Clear Calc 42.53, Est GFR (MDRD) Af Amer 65, Est GFR (MDRD) Non-Af 54 L, BUN/Creatinine Ratio 16.0, Glucose 120 H, Calcium 8.8, Triglycerides 103, Cholesterol 119, LDL Cholesterol 36, VLDL Cholesterol 21, HDL Cholesterol 62 04/23/19 05:04: WBC 9.5, RBC 3.49 L, Hgb 10.5 L, Hct 31.6 L, MCV 90.5, MCH 30.1, MCHC 33.2, RDW Std Deviation 39.0, RDW Coeff of Abbie 11.9, Plt Count 244, MPV 10.9, Immature Gran % (Auto) 0.500, Neut % (Auto) 70.5 H, Lymph % (Auto) 19.1, [place] % (Auto) 9.1, Eos % (Auto) 0.5, Baso % (Auto) 0.3, Absolute Neuts (auto) 6.7, Absolute Lymphs (auto) 1.82, Nucleated RBC % 0 04/23/19 05:04: PT 14.3, INR 1.1 04/23/19 05:04: Troponin I 10.800 H* 04/23/19 06:33: POC Glucose 110 04/23/19 08:00: APTT 81.3 H 04/23/19 11:12: Activated Clotting Time 186 H 04/23/19 12:53: POC Glucose 165 H Current Medications Acetaminophen (Tylenol) 650 mg PO Q6H PRN PRN PRN Reason: Pain Score 1-3/Temp > 100.7 F Amlodipine Besylate (Norvasc) 5 mg PO QHS [facility] Last Admin: 04/23/19 02:08 Dose: 5 mg Documented by: Aspirin (Aspirin, Baby) 81 mg PO DAILY@0800 [facility] Last Admin: 04/23/19 09:27 Dose: 81 mg Documented by: Atorvastatin Calcium (Lipitor) 80 mg PO QHS [facility] Atropine Sulfate () 0.5 mg IV UD PRN PRN Reason: HR <50 bpm Carbidopa/Levodopa (Sinemet) 1 tablet PO TIDAC [facility] Last Admin: 04/23/19 12:54 Dose: 1 tablet Documented by: Dextrose (D50w Syringe) 0 gm IV X1 PRN; Protocol PRN Reason: Hypoglycemia Glucagon () 1 mg IM .X1 PRN PRN Reason: Hypoglycemia Heparin Sodium (Porcine) (Heparin Na) 0 unit IV UD PRN; Protocol Sodium Chloride () 250 mls @ 15 mls/hr IV .[id number] PRN PRN Reason: Saline Flush Sodium Chloride () 250 mls @ 15 mls/hr IV .[id number] PRN PRN Reason: Additional IVPB Infusion Sodium Chloride () 1,000 mls @ 60 mls/hr IV .[id number] [facility] Last Admin: 04/23/19 12:35 Dose: 60 mls/hr Documented by: Insulin Human Lispro (Humalog Kwikpen (Bkc)) 0 unit SC Q6 [facility]; Protocol Last Admin: 04/23/19 12:54 Dose: 1 units Documented by: Labetalol HCl (Trandate) 10 mg IV Q4H PRN PRN PRN Reason: SBP > 160 Nitroglycerin (Nitrobid) 1 inch TRANSDERM. Q6 [facility] Last Admin: 04/23/19 13:00 Dose: 1 inch Documented by: Ondansetron HCl (Zofran) 4 mg IV Q8H PRN PRN PRN Reason: NAUSEA/VOMITING Sodium Chloride () 10 - 40 ml IV UD PRN PRN Reason: SALINE FLUSH Sodium Chloride () 500 ml IV BOLUS PRN PRN Reason: VASO-VAGAL PROTOCOL Last Admin: 04/23/19 12:34 Dose: 500 ml Documented by: Ticagrelor (Brilinta) 90 mg PO BID [facility] Last Admin: 04/23/19 09:29 Dose: 90 mg Documented by: Tramadol HCl (Ultram) 25 mg PO QHS PRN PRN PRN Reason: Pain Score 1-01/05 Discharge Diet: - Disposition: Acute care Hospital Minutes spent on discharge:: 35 Patient Condition:: Stable Meaningful Use Info Meaningful Use Diagnoses (Choose all that apply): None applicable Code Visit Inpatient E&M: 72578 Disch Hosp
--- NOTE | 2019-04-23 14:08 | NURSING ---
manual pressure to rt groin site. dr. gamboa paged and awaiting call. 2cc air reinflated to rt tr band for scant more red drng obs after balloon deflated.
--- NOTE | 2019-04-23 14:26 | NURSING ---
215-dr gamboa called and updated on pts drng. order to change rt fem site with sterile techniqe. hold lovenox till tonight. manual pressure continues. vs 141/85, p-80, r-16, 93% on 2l. battery charger conveyor line in and holding pressure
--- NOTE | 2019-04-23 14:28 | NURSING ---
1420-drsg changed to rt fem site per sterile technique. no change in radial drng. no hematoma palp to rt groin site. able to void large amt on bedpan. continue to monitor.
--- NOTE | 2019-04-23 14:57 | PN_ITS ---
Patient Problems: Active and Suspected Problems Unstable angina (Acute) NSTEMI (non-ST elevated myocardial infarction) (Acute) Reason for Visit: chest pain Subjective: Pt seen and examined post cath. No chest pain, pressure, tightness, heaviness. No SOB. No LH/Dizziness. Eating without nausea vomiting. No LE edema. Pt in bed NAD, no complaints. Agreeable to transfer to f. Vitals/I&O's: Vital Signs Temp Pulse Resp BP Pulse Ox 97.5 F L 78 16 138/66 H 94 04/23/19 14:42 04/23/19 14:42 04/23/19 14:42 04/23/19 14:42 04/23/19 14:42 Oxygen Flow Rate (L/min) 2 Oxygen Delivery Method Nasal Cannula Weight: 161 lb 9.581 oz Body Mass Index (BMI) 26.9 Intake and Output for Last 24 Hours 04/21/19 04/22/19 04/23/19 23:59 23:59 23:59 Intake Total 1050.56 / 1050.56 Balance 1050.56 / 1050.56 General: Alert, Oriented x3, Cooperative HEENT: Atraumatic, PERRLA, EOMI, Normocephalic Neck: Supple, No JVD, Negative Carotid Bruits Lungs: Clear to auscultation, Normal air movement Cardiovascular: Regular rate, No murmurs Abdomen: Bowel Sounds Present, Soft, Non Tender Extremities: No edema, Capillary Refill Less than 3 Seconds Skin: No rashes, No breakdown, - - petechiae proximal and distal to right radial cath site. Musculoskeletal: No Tenderness to Palpation of Joints or Extremities Neurological: Cranial nerves II-XII grossly intact Psych/Mental Status: Normal Affect, Appropriate Laboratory Results 04/22/19 19:12: WBC 12.8 H, RBC 4.05 L, Hgb 12.1, Hct 37.2, MCV 91.9, MCH 29.9, MCHC 32.5, RDW Std Deviation 40.3, RDW Coeff of Abbie 11.9, Plt Count 282, MPV 10.2, Immature Gran % (Auto) 0.300, Neut % (Auto) 71.5 H, Lymph % (Auto) 18.5 L, [place] % (Auto) 8.3, Eos % (Auto) 1.1, Baso % (Auto) 0.3, Absolute Neuts (auto) 9.2 H, Absolute Lymphs (auto) 2.37, Nucleated RBC % 0 04/22/19 19:12: Sodium 139, Potassium 4.2, Chloride 105, Carbon Dioxide 26.0, Anion Gap 8, BUN 16, Creatinine 1.34 H, Estim Creat Clear Calc 40.43, Est GFR (MDRD) Af Amer 50 L, Est GFR (MDRD) Non-Af 41 L, BUN/Creatinine Ratio 11.9, Glucose 166 H, Calcium 9.5, Troponin I < 0.015 04/22/19 19:12: APTT 29.2 04/22/19 23:15: Troponin I 6.350 H* 04/23/19 00:18: POC Glucose 210 H 04/23/19 02:25: APTT 224.3 H* 04/23/19 05:04: Sodium 141, Potassium 3.8, Chloride 110 H, Carbon Dioxide 23.0, Anion Gap 8, BUN 17, Creatinine 1.06 H, Estim Creat Clear Calc 42.53, Est GFR (MDRD) Af Amer 65, Est GFR (MDRD) Non-Af 54 L, BUN/Creatinine Ratio 16.0, Glucose 120 H, Calcium 8.8, Triglycerides 103, Cholesterol 119, LDL Cholesterol 36, VLDL Cholesterol 21, HDL Cholesterol 62 04/23/19 05:04: WBC 9.5, RBC 3.49 L, Hgb 10.5 L, Hct 31.6 L, MCV 90.5, MCH 30.1, MCHC 33.2, RDW Std Deviation 39.0, RDW Coeff of Abbie 11.9, Plt Count 244, MPV 10.9, Immature Gran % (Auto) 0.500, Neut % (Auto) 70.5 H, Lymph % (Auto) 19.1, [place] % (Auto) 9.1, Eos % (Auto) 0.5, Baso % (Auto) 0.3, Absolute Neuts (auto) 6.7, Absolute Lymphs (auto) 1.82, Nucleated RBC % 0 04/23/19 05:04: PT 14.3, INR 1.1 04/23/19 05:04: Troponin I 10.800 H* 04/23/19 06:33: POC Glucose 110 04/23/19 08:00: APTT 81.3 H 04/23/19 11:12: Activated Clotting Time 186 H 04/23/19 12:53: POC Glucose 165 H Current Medications Acetaminophen (Tylenol) 650 mg PO Q6H PRN PRN PRN Reason: Pain Score 1-3/Temp > 100.7 F Amlodipine Besylate (Norvasc) 5 mg PO QHS [facility] Last Admin: 04/23/19 02:08 Dose: 5 mg Documented by: Aspirin (Aspirin, Baby) 81 mg PO DAILY@0800 [facility] Last Admin: 04/23/19 09:27 Dose: 81 mg Documented by: Atorvastatin Calcium (Lipitor) 80 mg PO QHS [facility] Atropine Sulfate () 0.5 mg IV UD PRN PRN Reason: HR <50 bpm Carbidopa/Levodopa (Sinemet) 1 tablet PO TIDAC [facility] Last Admin: 04/23/19 12:54 Dose: 1 tablet Documented by: Dextrose (D50w Syringe) 0 gm IV X1 PRN; Protocol PRN Reason: Hypoglycemia Glucagon () 1 mg IM .X1 PRN PRN Reason: Hypoglycemia Heparin Sodium (Porcine) (Heparin Na) 0 unit IV UD PRN; Protocol Sodium Chloride () 250 mls @ 15 mls/hr IV .[id number] PRN PRN Reason: Saline Flush Sodium Chloride () 250 mls @ 15 mls/hr IV .[id number] PRN PRN Reason: Additional IVPB Infusion Sodium Chloride () 1,000 mls @ 60 mls/hr IV .[id number] [facility] Last Admin: 04/23/19 12:35 Dose: 60 mls/hr Documented by: Insulin Human Lispro (Humalog Kwikpen (Bkc)) 0 unit SC Q6 [facility]; Protocol Last Admin: 04/23/19 12:54 Dose: 1 units Documented by: Labetalol HCl (Trandate) 10 mg IV Q4H PRN PRN PRN Reason: SBP > 160 Nitroglycerin (Nitrobid) 1 inch TRANSDERM. Q6 [facility] Last Admin: 04/23/19 13:00 Dose: 1 inch Documented by: Ondansetron HCl (Zofran) 4 mg IV Q8H PRN PRN PRN Reason: NAUSEA/VOMITING Sodium Chloride () 10 - 40 ml IV UD PRN PRN Reason: SALINE FLUSH Sodium Chloride () 500 ml IV BOLUS PRN PRN Reason: VASO-VAGAL PROTOCOL Last Admin: 04/23/19 12:34 Dose: 500 ml Documented by: Ticagrelor (Brilinta) 90 mg PO BID [facility] Last Admin: 04/23/19 09:29 Dose: 90 mg Documented by: Tramadol HCl (Ultram) 25 mg PO QHS PRN PRN PRN Reason: Pain Score 1-10/10 STROKE Vital Signs/Narrative: Vital Signs Temp Pulse Resp BP Pulse Ox 04/23/19 14:42 97.5 F L 78 16 138/66 H 94 04/23/19 13:34 92 16 172/71 H 94 04/23/19 13:00 69 155/67 H 04/23/19 12:50 77 16 155/67 H 96 04/23/19 12:36 74 16 166/78 H 97 04/23/19 12:25 97.7 F L 69 16 156/75 H 96 04/23/19 12:10 65 16 175/70 H 97 04/23/19 12:00 97.7 F L 69 16 156/75 H 96 04/23/19 11:57 97.8 F 74 16 163/73 H 96 Medical Necessity - Tobacco Use Smoking Status: Current every day smoker Tobacco Use: Vapor Assessment/Plan All Active Problems Unstable angina (Acute) NSTEMI (non-ST elevated myocardial infarction) (Acute) 1. NSTEMI - multi vessel disease on cath today (see report). Transfer to [facility] when accepted for surgical referral. Currently no symptoms. Continue brillinta, aspirin, heparin, statin. trop max 10.800. Some pericath bleeding - check AM CBC. 2. VICKI on CKDIII - improved, check AM BMP. Losartan/metformin held. 3. T2DM - continue to hold metformin. Continue SSI. 4. HTN - mildly elevated. Trend. DVT ppx: heparin DC planning: to [facility] when bed available. This patient was seen by Van Srinivasan PA-C under the supervision of Dr. Mulligan.
--- NOTE | 2019-04-23 17:06 | NURSING ---
[facility] no questions voiced. squad here for pickup and all belongings packed and with pt. consent for transfer went over with pt and signed. rt radial and rt groin site checked and d&i.
--- NOTE | 2019-04-24 13:08 | CRPHASE1_ITS ---
Patient Communication Choice Letter Given to Patient:: Yes - Booklet provided by ICU staff. Guide to Cardiac Rehab Given by ICU Staff Prior to Discharge: Yes Guide to Cardiac Rehab Mailed to Patient by CR Staff:: No - Patient recieved booklet prior to discharge Patient Contacted Post Discharge by CR Staff:: Yes - Attempted to contact patient @11:00 and 1:09 on 04/24/2019. PHII Cardiac Rehab Referral:: WC - Patient voicemail message states she does not answer phone from unknown callers. Unable to reach patient. Will attempt 04/25/19 Risk Factors/Lifestyle Smoking Status: Current every day smoker Second-Hand Smoke:: Yes Hx Hypertension: Yes Hx Diabetes Mellitus Type 2: Yes - metformin Hx Dyslipidemia: Yes Family History: Family History (Last Updated 04/24/19 @ 08:01 by Yazmin Darnell) Mother Colon cancer Father COPD (chronic obstructive pulmonary disease) Laboratory Values: Cardiac Rehab Phase I Labs Triglycerides 103 mg/dL (-199) 04/23/19 05:04 Cholesterol 119 mg/dL (200) 04/23/19 05:04 LDL Cholesterol 36 mg/dL (0-130) 04/23/19 05:04 HDL Cholesterol 62 mg/dL (40-) 04/23/19 05:04 Cardiac Rehabilitation Info Cardiac Rehabilitation Program Information: Cardiac Rehabilitation is important for patients like you who are recovering from a heart problem. Cardiac rehabilitation programs are recognized as integral to the continued care of the patient with coronary heart disease. The cardiac rehabilitation program is designed to optimize a patient's physical, psychological, and social functioning. Health post anesthesia care unit nurse work in cardiac rehabilitation programs and assist you with getting the treatments you need to get stronger and healthier - like exercise, healthy eating habits, and medications. Cardiac rehabilitation has been show to help people with heart problems live longer and have better life enjoyment than people who do not go to cardiac rehabilitation. Please contact the Cardiac Rehabilitation Program at [facility] at in two weeks if you have not heard from them.
--- NOTE | 2019-04-24 13:13 | CRPH1.INSTRU ---
General Education CAD and cardiac anatomy and function:: Not instructed Explanation of diagnoses and procedures:: Not instructed Sign/Symptoms of PR:: Not instructed Antiplatelet therapy: Not instructed Proper use of NTG-SL: Not instructed Emergency procedures and activation of EMS: Not instructed Compliance of all prescribed medications: Not instructed - Patient discharged with A Guide to Cardiac Rehab booklet recieved from ICU staff. Unable to reach patient at home phone #.
== END 2019-04-23 17:08 | disposition short-term general hospital (02) | DRG 281 ==
LOC: ED 19:34 → PCU 20:43
PROVIDERS: Hospitalist; Admitting Provider Internal Medicine; Emergency Provider Emergency Medicine; PCP Internal Medicine; Referring Provider Specialist
DX: I21.4 Non-ST elevation (NSTEMI) myocardial infarction (principal); N17.9 Acute kidney failure, unspecified; E11.22 Type 2 diabetes mellitus with diabetic chronic kidney disease; N18.3 Chronic kidney disease, stage 3 (moderate); F17.290 Nicotine dependence, other tobacco product, uncomplicated; I25.110 Atherosclerotic heart disease of native coronary artery with unstable angina pectoris; I12.9 Hypertensive chronic kidney disease with stage 1 through stage 4 chronic kidney disease, or unspecified chronic kidney disease; Z79.84 Long term (current) use of oral hypoglycemic drugs
CPT/HCPCS: 36415; 71045; 80048; 80061; 82962; 84484; 85025; 85347; 85610; 85730; 93005; 93458; 99152; 99153; 99285; J7030; J7040; Q9967; A4216; C1760; C1769; C1894

== ENCOUNTER → 2019-07-11 17:18 | Outpatient (CLI) | payer MEDICARE, SELFPAY ==
[2019-04-22 23:12] VITALS: BMI 26.9
== END ==
PROVIDERS: PCP Internal Medicine; Referring Provider Family Medicine; Visit Provider Family Medicine
DX: Z20.828 Contact with and (suspected) exposure to other viral communicable diseases (principal)
CPT/HCPCS: 87635; U0004

== ENCOUNTER 2019-08-11 18:22 | Inpatient (IN) | payer MEDICARE, SELFPAY ==
[2019-04-22 23:12] VITALS: BMI 26.9
[2019-08-11 18:25] VITALS: BP 134/60; PULSE 48; RESP 20; TEMP 36.3; O2SAT 98; BMI 26.6
--- NOTE | 2019-08-11 18:41 | ED.RN ---
POSITIVE COVID 3 WKS AGO. INDETERMINATE RESULTS ON 08/08/2019.
--- NOTE | 2019-08-11 19:04 | EKG12_ITS ---
Test Reason : CONFUSION Blood Pressure : / mmHG Vent. Rate : 046 BPM Atrial Rate : 046 BPM P-R Int : 162 ms QRS Dur : 078 ms QT Int : 440 ms P-R-T Axes : 034 -23 110 degrees QTc Int : 385 ms Sinus bradycardia Otherwise normal ECG Leftward axis Poor R wave progression Nonspecific ST and T wave abnormality Confirmed by ED MEYERS, CHARU ([id number]), supervising editor trailer EMILY CAVANAUGH ([id number]) on 08/15/2019 3:18:34 PM Referred By: RAYMOND Confirmed By:CHARU WARD MD
--- NOTE | 2019-08-11 19:04 | CT_ITS ---
STUDY: CT BRAIN WITHOUT CONTRAST REASON FOR EXAM: Female, 74 years old. ALTERED MS. Hx of Parkinson''s, diabetes and HTN. Pt tested positive for covid 3 weeks ago RADIATION DOSAGE (If Supplied By Facility): CTDIvol = ( 44.99 ) mGy, DLP = ( 779.24 ) mGycm TECHNIQUE: Transaxial CT imaging of the brain was performed without administration of intravenous contrast material. Individualized dose optimization techniques were used for this CT. COMPARISON: No relevant priors. FINDINGS: Normal soft tissue structures. Normal calvarium. There is mild cerebral atrophy with widening of the extra-axial spaces and ventricular dilatation. There are areas of decreased attenuation within the white matter tracts of the supratentorial brain, consistent with microvascular disease changes. 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 Old left lacunar infarct tip of the putamen/Gypsy with the internal capsule. Normal brainstem. There is mild cerebellar atrophy. There is no intracranial hemorrhage. There are no findings of an acute ischemic infarction. Retained fluid in the left sphenoid sinus. CT/Brain/Head without Contrast IMPRESSION: No acute intracranial findings. Negative for hemorrhage, hematoma or demarcation of a new nonhemorrhagic infarct zone. Generalized involutional changes, old large infarct zone in the left occipital lobe and an old lacunar infarct of left basal ganglia. Carotid and vertebral artery calcifications. Retained fluid in the left sphenoid sinus. Electronically Signed: Vale Jean MD at 20:34 EDT , Service support ,
--- NOTE | 2019-08-11 19:06 | ED.DCSUM_ITS ---
- ER Visit Summary Date of Service: 08/11/19 Chief Complaint: Altered mental status History of Present Illness: The patient is a 74 F who presents with confusion that became worse today. Patient is normally alert and oriented x2. Patient was noted to be alert and oriented x1 today. Patient was tested for COVID-19 3 weeks ago and was positive. Patient was retested again 2 days ago and it was indeterminate. Patient denies any fevers or chills. Patient does have a history of Parkinson's disease. Physical Examination: Vital signs are stable except for bradycardia of 48. Patient is afebrile. Patient is in no acute distress. Pupils are equal, round, and reactive to light bilaterally. Extraocular muscles are intact. Conjunctiva is clear. Oral mucosa is pink and moist. Neck is supple. Trachea is midline. There is no JVD. Heart was regular bradycardic. Lungs are clear and equal bilaterally. Abdomen is soft. Bowel sounds are normal. There is no tenderness. Cranial nerves II through XII are grossly intact. There are no focal motor or sensory deficits noted. Patient is alert and oriented to person only. Extremities were intact. There is no calf tenderness or edema. Test Results: CBC shows a slight anemia with a hemoglobin of 11.8 and hematocrit 35.3. Comprehensive metabolic profile showed a BUN of 31 and a creatinine of 1.37. Alk phos was slightly elevated at 162. INR and PTT were normal at 1.3 and 34.7. Lactate was 2.0. EKG showed sinus bradycardia with a rate of 46. There are no acute ST or T wave changes. CT scan of the brain was obtained. There is no acute intracranial abnormality. There is a large old left occipital lobe infarct. Portable chest x-ray shows bilateral infiltrates. This was interpreted by the radiologist and reviewed by myself. Emergency Department Course and Treatment: Blood cultures were obtained. Patient was started on Levaquin. Case was discussed with the hospitalist. He will admit the patient to his service to the COVID floor. Disposition: Admit to hospital Impression: 1. Pneumonia 2. Confusion 3. COVID-19 positive This note was generated with Free Flow Poweration software. It may contain incorrect words, spelling, and punctuation that were not noted in review of the chart prior to signing ED Disposition - Plan for ED Patient: Disposition: Acute Care Hospital [facility] Diagnosis: Pneumonia, Confusion, COVID-19 Referrals: Wanda Cortez MD [Primary Care Provider] -
--- NOTE | 2019-08-11 19:35 | RAD_ITS ---
STUDY: X-RAY CHEST REASON FOR EXAM: Female, 74 years old. confusion positive covid 3 weeks ago TECHNIQUE: 1 view COMPARISON: Prior chest radiograph of April 22, 2019 FINDINGS: New mild patchy parenchymal infiltrates bilaterally upper and lower lung zones. Some underlying chronic bibasilar lung changes. Negative for a substantial pleural effusion. Normal cardiac size status post prior midline sternotomy since prior exam. Normal mediastinum and leyla. Normal visualized pulmonary arteries. There is atherosclerotic calcification of the aortic arch with tortuosity. Normal visualized thoracic spine. Normal visualized ribs, clavicles, and shoulders. There is no demonstrated abnormality of the visualized soft tissue structures of the upper abdomen. RAD/Chest 1 View (Portable) IMPRESSION: Assuming no substantial residual pulmonary infiltrates since midline sternotomy, new small patchy bilateral pulmonary infiltrates with a component of chronic bibasilar lung changes. Findings are concerning for a pneumonic process of viral/atypical or typical etiology. Electronically Signed: Vale Jean MD at 19:58 EDT , Service support ,
[2019-08-11 19:38] LABS: Bacteria 0 SEEN /hpf (None Seen); Mucous, Urine 0 SEEN /hpf (<or=2+)
[2019-08-11 19:47] LABS: Color, Urine Yellow (Yellow); Glucose, Dipstick 100 mg/dl (Normal); Ketone-Dipstick Negative (Negative); Leukocyte Esterase-Dipstick Negative /ul (Negative); Nitrite-Dipstick Negative (Negative); Occult Blood-Urine Negative /ul (Negative); Protein-Dipstick 100 mg/dl (Negative); Urine Bilirubin Dipstick Negative (Negative); Urine Clarity Clear (Clear); Urine Urobilinogen Normal (Normal)
[2019-08-11 19:53] LABS: Absolute Lymphocyte Count 1.41 X10^3/uL (0.83-4.51); Absolute Neutrophil Count 6.1 X10^3/uL (2.0-7.7); Basophil# 0.02 X10^3/uL; Basophil% 0.2 % (0-1); Eosinophil# 0.17 X10^3/uL; Eosinophils% 1.9 % (0-5); Hematocrit 35.3 % (37-47); Hemoglobin 11.8 g/dL (12.0-15.0); Lymphocyte # 1.41 X10^3/ul (4.0); Mean Corp Hgb Conc 33.4 g/dL (32-36); Mean Corpuscular Hgb 30.7 pg (27.0-32.0); Mean Corpuscular Volume 91.9 fL (81-99); Mean Platelet Vol. 10.7 fl (6.2-12.0); Monocyte# 1.12 X10^3/uL; Monocyte% 12.7 % (0-10); NRBC Flagged by Analyzer 0 % (0-5); Neutrophil # 6.06 X10^3/uL (2.7-7.7); Neutrophil % 68.6 % (47-70); Platelet Count 290 K/mm3 (150-450); RBC Distribution Width CV 13.4 % (11.6-14.6); Red Blood Count 3.84 M/mm3 (4.2-5.4); White Blood Count 8.8 K/mm3 (4.4-11.0)
[2019-08-11 19:58] LABS: International Normalized Ratio 1.3; Prothrombin Time (Protime)PT. 15.8 SECONDS (11.7-14.9)
[2019-08-11 19:59] LABS: Partial Thromboplast Time 34.7 Seconds (24.1-36.2)
[2019-08-11 20:04] LABS: White Blood Cells 0-5 SEEN /hpf (0-5)
[2019-08-11 20:05] LABS: Squamous Epithelial Cells - UA 0-5 SEEN /hpf (5-10); Transitional Epithelial - Ur 0-5 SEEN /hpf (0-5)
[2019-08-11 20:06] LABS: Hyaline Cast 0-5 SEEN /lpf (0-5)
[2019-08-11 20:07] LABS: Red Blood Cells-Urine 0-5 SEEN /hpf (0-5)
[2019-08-11 20:12] LABS: ALB/GLOB Ratio 0.6 RATIO (0.9-2.4); AST(SGOT) 24 U/L (15-37); Alanine Aminotransfer ALT/SGPT 16 U/L (13-56); Albumin, Serum 2.7 g/dL (3.2-5.0); Alkaline Phosphatase 162 U/L (45-117); Anion Gap 5 (5-15); BUN 31 mg/dL (7-18); BUN/Creat Ratio 22.6 RATIO (10-20); Calcium,Total 8.9 mg/dL (8.5-10.1); Chloride 102 mmol/L (98-107); Creatinine, Serum 1.37 mg/dL (0.55-1.02); EST Glomerular Filtration Rate 40 mL/min (>60); Est Glom Filt Rate - Afr Amer 49 mL/min (>60); Estimated Creatinine Clearance 34.24 ml/min; Globulin 4.7 g/dL (2.2-4.2); Glucose 70 mg/dL (74-106); Potassium 3.9 mmol/L (3.5-5.1); Protein, Total 7.4 g/dL (6.4-8.2); Sodium Level 137 mmol/L (136-145)
[2019-08-11 20:24] VITALS: BP 100/69; PULSE 44; RESP 22; TEMP 36.3; O2SAT 97
[2019-08-11] MEDS: levoFLOXacin IV 750 MG/150 ML BAG 100 MG IV (20:39)
--- NOTE | 2019-08-11 21:22 | PCM.HP.STD ---
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 History obtained through the emergency room physician as patient is demented and a poor historian. Patient was noted to be alert and oriented only x1 whereas normally, she is alert and oriented x2. Brought to the emergency room where she was diagnosed with bilateral pneumonia and received levofloxacin. Patient previously tested positive for COVID-19 and then had an apparent indeterminate result recently. Patient was admitted in March for non-ST ovation myocardial infarction and patient was transferred over to [facility]. Results from that hospitalization have been requested. [] Past Medical History Past Medical History (Chronic Problems): Chronic Problems (Last Reviewed 04/24/19 @ 08:00 by Yazmin Darnell) Parkinson disease (Chronic) CAD (coronary artery disease) (Chronic) DM2 (diabetes mellitus, type 2) (Chronic) Atherosclerotic heart disease [place] coronary artery w/angina pectoris (Chronic) Essential (primary) hypertension (Chronic) Nicotine dependence (Chronic) Medical History: Medical History (Last Updated 08/11/19 @ 21:[address] Sukhdev Mulilgan, DO) NSTEMI (non-ST elevated myocardial infarction) (Resolved) Onset Date: 04/22/19 I21.4 Atherosclerotic heart disease [place] coronary artery w/angina pectoris (Chronic) I25.119 Essential (primary) hypertension (Chronic) I10 Nicotine dependence (Chronic) F17.200 Afib I48.91 Chronic kidney disease (CKD) N18.9 Parkinson disease G20 Type 2 diabetes mellitus E11.9 Allergies amantadine Allergy (Verified 08/11/19 18:28) PT UNABLE TO RESPOND-NEEDS F/U famotidine Allergy (Verified 08/11/19 18:28) Other nitrofurantoin [From Macrobid] Allergy (Verified 08/11/19 18:28) PT UNABLE TO RESPOND-NEEDS F/U Penicillins [PCN] Allergy (Verified 08/11/19 18:28) PT UNABLE TO RESPOND-NEEDS F/U povidone-iodine Allergy (Verified 08/11/19 18:28) PT UNABLE TO RESPOND-NEEDS F/U shellfish derived Allergy (Verified 08/11/19 18:28) Anaphylaxis Sulfa (Sulfonamide Antibiotics) Allergy (Verified 08/11/19 18:28) PT UNABLE TO RESPOND-NEEDS F/U Home Medications: Ambulatory Orders Medication Instructions Recorded Amlodipine [Norvasc] 5 mg PO DAILY 04/22/19 Aspirin [Adult Low Dose Aspirin EC] 81 mg PO DAILY 04/22/19 Atorvastatin Calcium 80 mg PO QHS 04/22/19 Carbidopa/Levodopa [Sinemet 1 tab PO TID 04/22/19] Acetaminophen 650 mg PO Q4H PRN PRN 08/11/19 Acetaminophen 650 mg MT Q4H PRN PRN 08/11/19 Bisacodyl 10 mg MT X1 PRN 08/11/19 Dextrose [Glucose Gel] 1 dose PO X1 PRN 08/11/19 Docusate Sodium [Colace] 200 mg PO BID 08/11/19 Fluoxetine [Prozac] 10 mg PO DAILY 08/11/19 Folic Acid/Vitamin B Comp W-C 1 cap PO DAILY 08/11/19 [Nephrocaps, Renaphro] Furosemide [Lasix] 20 mg PO DAILY 08/11/19 Glucagon,Human Recombinant 1 mg IJ X1 PRN 08/11/19 [Glucagon Emergency Kit] Glycerin 1 ea MT X1 PRN 08/11/19 Guaifenesin [Robitussin] 10 ml PO Q4H PRN PRN 08/11/19 Insulin Detemir [Levemir] 12 unit SQ DAILY 08/11/19 Insulin Lispro 12 unit SQ BID 08/11/19 Mag Hydrox/Aluminum Hyd/Simeth 30 ml PO Q4H PRN PRN 08/11/19 [Antacid Suspension] Magnesium Hydroxide [Milk Of 30 ml PO DAILY PRN PRN 08/11/19 Magnesia] Melatonin 3 mg PO QHS 08/11/19 Metoprolol Tartrate 25 mg PO BID 08/11/19 Na Phos,M-B/Na Phos,Di-Ba [Fleet 120 ml RECTAL X1 PRN 08/11/19 Enema] Pantoprazole Sodium [Protonix] 20 mg PO DAILY 08/11/19 Warfarin Sodium 1 mg PO SUSA 08/11/19 Warfarin Sodium 2 mg PO MOTUWETHFR 08/11/19 Surgical History: Surgical History (Last Reviewed 08/11/19 @ 21:[address] Sukhdev Mulligan DO) History of left heart catheterization Onset Date: 04/23/19 Z98.890 Surgical History: - - Multiple teeth pulled out and now with dentures Smoking Status: Former smoker - *Family History Maternal Family History: Family History (Last Reviewed 08/11/19 @ 21:[address] Sukhdev Mulligan DO) Mother Colon cancer Father COPD (chronic obstructive pulmonary disease) History Items: Cancer Paternal Family History: Family History (Last Reviewed 08/11/19 @ 21:[address] Sukhdev Mulligan DO) Mother Colon cancer Father COPD (chronic obstructive pulmonary disease) History Items: Pulmonary Disease Review of Systems Unable to obtain accurate/complete ROS d/t: Patient poor historian and confused. VTE Information - Inpt Only VTE Present on Admission: No VTE Mechan Device Prophylaxis: None VTE Pharm Prophylaxis ordered?: Yes Patient Problems: Active and Suspected Problems (Last Reviewed 04/24/19 @ 08:00 by Yazmin Darnell) Pneumonia (Acute) Confusion (Acute) COVID-19 (Acute) Afib (Acute) - Physical Exam Vitals/I&O's: Vital Signs Temp Pulse Resp BP Pulse Ox 36.3 C L 44 L 22 H 100/69 97 08/11/19 20:24 08/11/19 20:24 08/11/19 20:24 08/11/19 20:24 08/11/19 20:24 Oxygen Flow Rate (L/min) 2 Oxygen Delivery Method Nasal Cannula Weight: 74.8 kg Body Mass Index (BMI) 26.6 General: - - Awake. Alert and oriented only to self. Afebrile. HEENT: Atraumatic, PERRLA, EOMI, Normocephalic, - - Alopecia. No scleral icterus. Oral: Moist Mucosa, No Gingival or Mucosal Lesions/ Ulcerations Neck: No JVD, Negative Hepatojugular Reflux Lungs: Normal air movement, - - Bibasilar crackles Cardiovascular: Regular rate, Regular Rhythm, Normal S1, Normal S2, No murmurs Abdomen: Bowel Sounds Present, Soft, Non Tender, Non-Distended, No Hepato-splenomegaly Extremities: No edema, No Calf Tenderness Skin: No rashes, No breakdown Musculoskeletal: No Tenderness to Palpation of Joints or Extremities, No Muscle Wasting Neurological: Motor Exam 5/5 strength throughout, - - No clonus Psych/Mental Status: - - Pleasantly confused Laboratory Results 08/11/19 19:00: WBC 8.8, RBC 3.84 L, Hgb 11.8 L, Hct 35.3 L, MCV 91.9, MCH 30.7, MCHC 33.4, RDW Std Deviation 45.0 H, RDW Coeff of Abbie 13.4, Plt Count 290, MPV 10.7, Immature Gran % (Auto) 0.600, Neut % (Auto) 68.6, Lymph % (Auto) 16.0 L, [place] % (Auto) 12.7 H, Eos % (Auto) 1.9, Baso % (Auto) 0.2, Absolute Neuts (auto) 6.1, Absolute Lymphs (auto) 1.41, Nucleated RBC % 0 08/11/19 19:00: PT 15.8 H, INR 1.3, APTT 34.7 08/11/19 19:00: Sodium 137, Potassium 3.9, Chloride 102, Carbon Dioxide 30.0, Anion Gap 5, BUN 31 H, Creatinine 1.37 H, Estim Creat Clear Calc 34.24, Est GFR (MDRD) Af Amer 49 L, Est GFR (MDRD) Non-Af 40 L, BUN/Creatinine Ratio 22.6 H, Glucose 70 L, Calcium 8.9, Total Bilirubin 0.30, AST 24, ALT 16, Alkaline Phosphatase 162 H, Total Protein 7.4, Albumin 2.7 L, Globulin 4.7 H, Albumin/Globulin Ratio 0.6 L 08/11/19 19:15: Lactic Acid 2.0 08/11/19 19:25: Urine Color Yellow, Urine Clarity Clear, Urine pH 6.0, Ur Specific [place] 1.010, Urine Protein 100 H, Urine Glucose (UA) 100 H, Urine Ketones Negative, Urine Occult Blood Negative, Urine Nitrite Negative, Urine Bilirubin Negative, Urine Urobilinogen Normal, Ur Leukocyte Esterase Negative, Urine RBC 0-5 SEEN, Urine WBC 0-5 SEEN, Ur Squamous Epith Cells 0-5 SEEN, Ur Transition Epith Cell 0-5 SEEN, Urine Bacteria 0 SEEN, Hyaline Casts 0-5 SEEN, Urine Mucus 0 SEEN Normal sinus on telemetry. Chest x-ray personally reviewed and shows bilateral hazy infiltrates. Of note this is a poor expiratory effort on this film. Clinical Impression(s) from Imaging Studies Brain CT 08/11/19 19:04 IMPRESSION: No acute intracranial findings. Negative for hemorrhage, hematoma or demarcation of a new nonhemorrhagic infarct zone. Generalized involutional changes, old large infarct zone in the left occipital lobe and an old lacunar infarct of left basal ganglia. Carotid and vertebral artery calcifications. Retained fluid in the left sphenoid sinus. Electronically Signed: Vale Jean MD at 20:34 EDT , Service support , Chest X-Ray 08/11/19 19:35 IMPRESSION: Assuming no substantial residual pulmonary infiltrates since midline sternotomy, new small patchy bilateral pulmonary infiltrates with a component of chronic bibasilar lung changes. Findings are concerning for a pneumonic process of viral/atypical or typical etiology. Electronically Signed: Vale Jean MD at 19:58 EDT , Service support , Current Medications Levofloxacin (Levaquin Iv) 750 mg in 150 mls @ 100 mls/hr IV X1 ONE Stop: 08/11/19 21:57 Last Admin: 08/11/19 20:39 Dose: 100 mls/hr Documented by: Assessment/Plan All Active Problems (Last Reviewed 04/24/19 @ 08:00 by Yazmin Darnell) Pneumonia (Acute) Confusion (Acute) COVID-19 (Acute) Afib (Acute) Unstable angina (Resolved) NSTEMI (non-ST elevated myocardial infarction) (Resolved 04/22/19) 1. Pneumonia: Suspected viral pathology as patient has been positive for COVID-19. However, cannot rule out a secondary bacterial infection. Given the patient is long term resident she is at risk for healthcare acquired infections such as Pseudomonas and MRSA. Patient received levofloxacin in the emergency room. I will have the patient on cefepime as well as vancomycin on the floor. Recheck COVID-19, check sputum cultures for strep and Legionella, follow-up on blood cultures, check respiratory viral panel. Additionally given the patient's recent history of COVID-19, will check d-dimer, pro calcitonin, CPK, CRP. Cannot rule out acute respiratory distress syndrome at this time but patient seems to be pretty stable on 2 L. No clinical evidence of CHF at this time, but will check a BNP level. 2. Metabolic encephalopathy: Likely secondary to underlying infectious process in a patient with underlying dementia. CAT scan showed just involutional changes as well as wrist atrophy. No acute process noted. Avoid potentiating medications. 3. Acute renal insufficiency: Creatinine is up to 1.37, baseline is around 1.06. We will give the patient 500 cc of saline. Given the potential for ARDS, would avoid overdiuresis at this time. Hold the patient's furosemide. 4. Atrial fibrillation: Continue with warfarin. INR subtherapeutic. We will give the patient 5 mg of warfarin today and then start 2.5 mg daily thereafter. Would anticipate that her INR would go up with her being on concomitant antibiotics. Patient is normally on 1 mg over the weekend and 2 mg throughout the week. Continue with metoprolol tartrate. 5. Coronary artery disease: Patient had a non-ST patient myocardial infarction with multivessel disease back in March. Patient was transferred over to [facility]. We will request the records from [facility]. 6. VTE prophylaxis: High risk potential with her being previously positive for COVID and may still be positive for it. Patient has no acute respiratory distress at this time so following the [facility] guidelines, will have the patient on enoxaparin 40 mg twice daily. We will continue with this until her INR becomes therapeutic and then that could be discontinued. 7. Advanced care planning: Per the long term signed DNR form, patient is DNR Comfort Care arrest. Inpatient E&M: [id number] In Hosp L3
--- NOTE | 2019-08-11 21:28 | ED.RN ---
called [facility] and updated [facility] on patient's status and admission. Also called [place], next of kin, and updated her as well.
[2019-08-11 22:06] VITALS: BP 93/68; PULSE 49; RESP 19; TEMP 36.6; O2SAT 98
[2019-08-11 22:41] VITALS: BMI 25.5; BMI 26.0
[2019-08-11 22:50] VITALS: BP 150/45; PULSE 43; RESP 18; TEMP 35.8; O2SAT 98
[2019-08-11 23:16] LABS: D-Dimer Quantitative (DVT/PE) 0.71 FEU/ug/m (0.27-0.49)
[2019-08-11 23:17] LABS: BNP,B-Type NATRIURETIC PEPTIDE 310.4 pg/mL (0-100)
[2019-08-11 23:26] LABS: Procalcitonin 0.08 ng/mL (0.00-0.09)
[2019-08-11] MEDS: Docusate Sodium 100 MG Capsule 200 MG PO (23:28)
[2019-08-11] MEDS: MELATONIN 3 MG TABLET PO (23:28)
[2019-08-11 23:29] VITALS: BP 141/49; PULSE 43
[2019-08-11] MEDS: Atorvastatin Calcium 80 MG Tablet PO (23:29)
[2019-08-11 23:30] LABS: CRP < 2.90 mg/L (0.0-3.0)
[2019-08-11] MEDS: Carbidopa/Levodopa 25/100 Tablet PO (23:30)
[2019-08-11] MEDS: Enoxaparin 40 MG/0.4 ML Syringe SC (23:31)
[2019-08-11 23:36] LABS: Reflex Lactate? Y
[2019-08-11 23:50] VITALS: O2SAT 92
[2019-08-11 23:50] LABS: Bedside Glucose 103 mg/dL (70-110)
[2019-08-12] MEDS: 0.9% Normal Saline 1,000 ML 150 ML IV
[2019-08-12] MEDS: 0.9% Saline Lock 10 ML Syringe IV (00:21)
[2019-08-12] MEDS: Vancomycin IV 1,000 MG/200 ML BAG 200 MG IV (00:35)
--- NOTE | 2019-08-12 01:37 | PCM.RX.CS ---
Consult Pharmacy has been consulted to manage selected antiobiotic: Vancomycin Type of Consult: New start Suspected Infection: Pneumonia Prior Doses of Antibiotics Received/Current Regimen: Medications Vancomycin HCl (Vancomycin) 1,000 mg in 200 mls @ 200 mls/hr IV Q24H [place] Discontinued Medications Vancomycin HCl (Vancomycin) 1,000 mg in 200 mls @ 200 mls/hr IV X1 ONE Stop: 08/12/19 00:29 Last Admin: 08/12/19 00:35 Dose: 200 mls/hr Labs: Sodium 137 mmol/L (136-145) 08/11/19 19:00 Potassium 3.9 mmol/L (3.5-5.1) 08/11/19 19:00 Chloride 102 mmol/L (98-107) 08/11/19 19:00 Carbon Dioxide 30.0 mmol/L (21.0-32.0) 08/11/19 19:00 Anion Gap 5 (5-15) 08/11/19 19:00 BUN 31 mg/dL (7-18) H 08/11/19 19:00 Creatinine 1.37 mg/dL (0.55-1.02) H 08/11/19 19:00 Est GFR (MDRD) Af Amer 49 mL/min (>60) L 08/11/19 19:00 Est GFR (MDRD) Non-Af 40 mL/min (>60) L 08/11/19 19:00 BUN/Creatinine Ratio 22.6 RATIO (10-20) H 08/11/19 19:00 Glucose 70 mg/dL (74-106) L 08/11/19 19:00 Weight used for dosin.8 kg Estimated Creatinine Clearance: 34.2 Goal Trough: 15-20 mcg/mL Pharmacy Plan for Drug Dosing: Pharmacy Service will continue to monitor and adjust dosing as required. Follow-Up Labs: Trough Vancomycin Labs to be done on [date and time ordered]: 08/14/19 @0000
[2019-08-12 02:21] LABS: Lactic Acid 1.4 mmol/L (0.4-1.9)
[2019-08-12 04:11] LABS: Absolute Lymphocyte Count 1.03 X10^3/uL (0.83-4.51); Absolute Neutrophil Count 4.6 X10^3/uL (2.0-7.7); Basophil# 0.01 X10^3/uL; Basophil% 0.2 % (0-1); Eosinophil# 0.23 X10^3/uL; Eosinophils% 3.5 % (0-5); Hemoglobin 10.9 g/dL (12.0-15.0); Lymphocyte # 1.03 X10^3/ul (4.0); Lymphocyte % 15.7 % (19-41); Mean Corpuscular Hgb 30.6 pg (27.0-32.0); Mean Corpuscular Volume 92.7 fL (81-99); Mean Platelet Vol. 10.5 fl (6.2-12.0); Monocyte# 0.69 X10^3/uL; Monocyte% 10.5 % (0-10); NRBC Flagged by Analyzer 0 % (0-5); Neutrophil # 4.56 X10^3/uL (2.7-7.7); Neutrophil % 69.2 % (47-70); Platelet Count 233 K/mm3 (150-450); RBC Distribution Width CV 13.4 % (11.6-14.6); RBC Distribution Width SD 45.4 fl (35.1-43.9); Red Blood Count 3.56 M/mm3 (4.2-5.4); White Blood Count 6.6 K/mm3 (4.4-11.0)
[2019-08-12 04:20] LABS: International Normalized Ratio 1.5; Prothrombin Time (Protime)PT. 17.8 SECONDS (11.7-14.9)
[2019-08-12 04:34] LABS: ALB/GLOB Ratio 0.5 RATIO (0.9-2.4); AST(SGOT) 19 U/L (15-37); Alanine Aminotransfer ALT/SGPT 9 U/L (13-56); Albumin, Serum 2.2 g/dL (3.2-5.0); Alkaline Phosphatase 134 U/L (45-117); Anion Gap 5 (5-15); BUN 31 mg/dL (7-18); Calcium,Total 8.7 mg/dL (8.5-10.1); Chloride 101 mmol/L (98-107); Creatinine, Serum 1.29 mg/dL (0.55-1.02); EST Glomerular Filtration Rate 43 mL/min (>60); Est Glom Filt Rate - Afr Amer 52 mL/min (>60); Estimated Creatinine Clearance 36.36 ml/min; Globulin 4.3 g/dL (2.2-4.2); Glucose 138 mg/dL (74-106); Potassium 4.3 mmol/L (3.5-5.1); Protein, Total 6.5 g/dL (6.4-8.2); Sodium Level 137 mmol/L (136-145)
[2019-08-12 05:25] VITALS: BP 155/52; PULSE 46; RESP 14; TEMP 35.9; O2SAT 98
[2019-08-12 06:45] VITALS: O2SAT 93
[2019-08-12 07:46] VITALS: BP 105/90; PULSE 47; RESP 17; TEMP 36; O2SAT 96
--- NOTE | 2019-08-12 08:04 | CPS ---
PT REFUSED REPEAT COVID NASAL SWAB 08/12/19
--- NOTE | 2019-08-12 10:14 | CASEMGMT ---
Addendum entered by Reba Loredo 08/12/19 10:18: CALL TO NEXT OF KIN, VINICIUS. LEFT MESSAGE WITH THIS WORKER'S CALL BACK INFORMATION. Original Note: SOCIAL WORK RECEIVED CALL FROM UNIT. UPDATED ON PLAN FOR DISCHARGE THIS DAY. CALL TO [facility], SPOKE WITH ARNOL. UPDATED ON PLAN FOR DISCHARGE. NURSE TO CALL REPORT TO [phone]. PLAN: RETURN TO [facility] Marylu LOREDO, AIR TWISTER WINDER, PRECISION MACHINING INSTRUCTOR.
--- NOTE | 2019-08-12 10:21 | NURSING ---
pt refused to take insulin or any of her mediations. dr dumont in room and aware
--- NOTE | 2019-08-12 10:25 | PCM.TXEXTCAR ---
- Diet 08/11/19 22:31 Diet: Calorie Controlled Food consistency:: Regular Liquid Consistency:: Regular/Thin How many daily calories?: 1800 calorie - Routine Orders/Code Status O2 Liters per Minute: 2 O2 Frequency: PRN Keep PO Greater than or Equal to (%): 94 Routine Lab Work: CBC - WITHIN 3 DAYS, BMP - WITHIN 3 DAYS, INR - DAILY Code Status: DNRCC-A - Therapies Weight Bearing: Weight bearing as tolerated Physical Therapy: Eval and Treat Occupational Therapy: Eval and Treat - Allergies/Procedures Done in Hospital Allergies/Adverse Reactions: Allergies amantadine Allergy (Verified 08/11/19 18:28) PT UNABLE TO RESPOND-NEEDS F/U famotidine Allergy (Verified 08/11/19 18:28) Other nitrofurantoin [From Macrobid] Allergy (Verified 08/11/19 18:28) PT UNABLE TO RESPOND-NEEDS F/U Penicillins [PCN] Allergy (Verified 08/11/19 18:28) PT UNABLE TO RESPOND-NEEDS F/U povidone-iodine Allergy (Verified 08/11/19 18:28) PT UNABLE TO RESPOND-NEEDS F/U shellfish derived Allergy (Verified 08/11/19 18:28) Anaphylaxis Sulfa (Sulfonamide Antibiotics) Allergy (Verified 08/11/19 18:28) PT UNABLE TO RESPOND-NEEDS F/U Procedures: None - Type of Care/Length of Stay Estimated LOS: Convalescent Care Less Than 30 days Type of Care Needed: Skilled Rehab Potential: Good Prognosis: Good - Additional Orders/Day of Discharge Additional Orders: Patient's Lasix was held in the hospital on account of acute kidney injury. Please continue to weigh patient daily. May be resumed back on kidney test when renal function is back to normal. Day of Discharge: 08/12/19 - Follow Up Care Primary Care Physician: Wanda Cortez MD [Primary Care Provider] -
--- NOTE | 2019-08-12 10:30 | PCM.DC.SUM ---
Discharge Date and Diagnosis Date of Admission: 08/11/19 Date of Discharge: 08/12/19 - Primary Discharge Diagnosis Active and Suspected Problems (Last Updated 08/11/19 @ 21:[address] Sukhdev Mulligan DO) Acute metabolic/infectious encephalopathy secondary to pneumonia in a demented patient, mild Pneumonia Acute COVID-19 VICKI on CKD stage 3 - Secondary Discharge Diagnosis Chronic Problems (Last Updated 08/11/19 @ 21:[address] Sukhdev Mulligan DO) Parkinson disease (Chronic) CAD (coronary artery disease) (Chronic) DM2 (diabetes mellitus, type 2) (Chronic) Atherosclerotic heart disease kenaitze coronary artery w/angina pectoris (Chronic) Essential (primary) hypertension (Chronic) Nicotine dependence (Chronic) Hospital Course and Treatment Imaging Results: Clinical Impression(s) from Imaging Studies Brain CT 08/11/19 19:04 IMPRESSION: No acute intracranial findings. Negative for hemorrhage, hematoma or demarcation of a new nonhemorrhagic infarct zone. Generalized involutional changes, old large infarct zone in the left occipital lobe and an old lacunar infarct of left basal ganglia. Carotid and vertebral artery calcifications. Retained fluid in the left sphenoid sinus. Electronically Signed: Vale Jean MD at 20:34 EDT , Service support , Chest X-Ray 08/11/19 19:35 IMPRESSION: Assuming no substantial residual pulmonary infiltrates since midline sternotomy, new small patchy bilateral pulmonary infiltrates with a component of chronic bibasilar lung changes. Findings are concerning for a pneumonic process of viral/atypical or typical etiology. Electronically Signed: Vale Jean MD at 19:58 EDT , Service support , None Operations: None Procedures: None Summary of Care Provided: The patient is a 74 year old F with multiple co-morbidities significant for hypertension, Type 2 DM, Parkinson's disease with dementia who was admitted with confusion. Patient has h/o COVID-19 positive test in the NH. Repeat testing a few days prior was indeterminate in results. She tested negative for COVID-19 in the ED. Her work-up in ED showed bilateral pneumonia and she was started on antibiotics. She however did not require oxygen. Patient was confused on admission, likely secondary to being outside her usual environment as well as being in isolation. She refused repeat COVID-19 testing. She also refused any medications. She was discharged back to her NH with 5 days of Levaquin. Her D-Dimer was elevated and patient was started on therapeutic Lovenox for possible COVID. She was continued on her coumadin. Daily INR was requested to prevent over correction of her INR due to interactions with Levaquin. Subjective: On the day of discharge, patient was seen and examined. She refused to have repeat COVID-19 testing done. She is refused all medications. No fevers seen. Not on oxygen. Patient appears to be back to her baseline - Physical Exam Vitals/I&O's: Vital Signs Temp Pulse Resp BP Pulse Ox 96.8 F L 47 L 17 105/90 H 96 08/12/19 07:46 08/12/19 07:46 08/12/19 07:46 08/12/19 07:46 08/12/19 07:46 Oxygen Flow Rate (L/min) 2 Oxygen Delivery Method Room Air Weight: 71.9 kg Body Mass Index (BMI) 25.5 Intake and Output for Last 24 Hours 08/10/19 08/11/19 08/12/19 23:59 23:59 23:59 Intake Total 150 / 350 1207.5 / 1207.5 Balance 150 / 350 1207.5 / 1207.5 General: Alert, Cooperative, - - oriented to self HEENT: Atraumatic, PERRLA, EOMI, Normocephalic Oral: Moist Mucosa Neck: Supple Lungs: Diminished Cardiovascular: Regular rate, Regular Rhythm, Normal S1, Normal S2, No murmurs Abdomen: Bowel Sounds Present, Soft, Non Tender, Non-Distended, No Hepato-splenomegaly Extremities: No edema Skin: No rashes Musculoskeletal: No Tenderness to Palpation of Joints or Extremities Neurological: Cranial nerves II-XII grossly intact Psych/Mental Status: Normal Affect, Appropriate Microbiology Past 72 Hours 08/11/19 23:50 Mucosa - Nasopharyngeal Respiratory Panel (PCR) - Final 08/11/19 23:50 Mucosa - Nasopharyngeal Coronavirus COVID-19 PCR - Final 08/11/19 19:25 Urine, Random Streptococcus pneumoniae Antigen (M - Final 08/11/19 19:25 Urine, Random Legionella Antigen - Final Laboratory Results 08/11/19 19:00: WBC 8.8, RBC 3.84 L, Hgb 11.8 L, Hct 35.3 L, MCV 91.9, MCH 30.7, MCHC 33.4, RDW Std Deviation 45.0 H, RDW Coeff of Abbie 13.4, Plt Count 290, MPV 10.7, Immature Gran % (Auto) 0.600, Neut % (Auto) 68.6, Lymph % (Auto) 16.0 L, [place] % (Auto) 12.7 H, Eos % (Auto) 1.9, Baso % (Auto) 0.2, Absolute Neuts (auto) 6.1, Absolute Lymphs (auto) 1.41, Nucleated RBC % 0 08/11/19 19:00: PT 15.8 H, INR 1.3, APTT 34.7 08/11/19 19:00: Sodium 137, Potassium 3.9, Chloride 102, Carbon Dioxide 30.0, Anion Gap 5, BUN 31 H, Creatinine 1.37 H, Estim Creat Clear Calc 34.24, Est GFR (MDRD) Af Amer 49 L, Est GFR (MDRD) Non-Af 40 L, BUN/Creatinine Ratio 22.6 H, Glucose 70 L, Calcium 8.9, Total Bilirubin 0.30, AST 24, ALT 16, Alkaline Phosphatase 162 H, Total Protein 7.4, Albumin 2.7 L, Globulin 4.7 H, Albumin/Globulin Ratio 0.6 L 08/11/19 19:15: Lactic Acid 2.0 08/11/19 19:25: Urine Color Yellow, Urine Clarity Clear, Urine pH 6.0, Ur Specific [place] 1.010, Urine Protein 100 H, Urine Glucose (UA) 100 H, Urine Ketones Negative, Urine Occult Blood Negative, Urine Nitrite Negative, Urine Bilirubin Negative, Urine Urobilinogen Normal, Ur Leukocyte Esterase Negative, Urine RBC 0-5 SEEN, Urine WBC 0-5 SEEN, Ur Squamous Epith Cells 0-5 SEEN, Ur Transition Epith Cell 0-5 SEEN, Urine Bacteria 0 SEEN, Hyaline Casts 0-5 SEEN, Urine Mucus 0 SEEN 08/11/19 22:40: D-Dimer Quant (PE/DVT) 0.71 H* 08/11/19 22:40: Troponin I < 0.015, C-React Prot Ext Range < 2.90 08/11/19 22:40: B-Natriuretic Peptide 310.4 H 08/11/19 22:40: Procalcitonin 0.08 08/11/19 22:40: CK Isoenzymes Pending, CK-MM (CK-3) Pending, CK-MB (CK-2) Pending, CK-BB (CK-1) Pending 08/11/19 23:25: POC Glucose 103 08/12/19 00:30: Lactic Acid 1.4 08/12/19 03:50: WBC 6.6, RBC 3.56 L, Hgb 10.9 L, Hct 33.0 L, MCV 92.7, MCH 30.6, MCHC 33.0, RDW Std Deviation 45.4 H, RDW Coeff of Abbie 13.4, Plt Count 233, MPV 10.5, Immature Gran % (Auto) 0.900, Neut % (Auto) 69.2, Lymph % (Auto) 15.7 L, [place] % (Auto) 10.5 H, Eos % (Auto) 3.5, Baso % (Auto) 0.2, Absolute Neuts (auto) 4.6, Absolute Lymphs (auto) 1.03, Nucleated RBC % 0 08/12/19 03:50: Sodium 137, Potassium 4.3, Chloride 101, Carbon Dioxide 31.0, Anion Gap 5, BUN 31 H, Creatinine 1.29 H, Estim Creat Clear Calc 36.36, Est GFR (MDRD) Af Amer 52 L, Est GFR (MDRD) Non-Af 43 L, BUN/Creatinine Ratio 24.0 H, Glucose 138 H, Calcium 8.7, Total Bilirubin 0.40, AST 19, ALT 9 L, Alkaline Phosphatase 134 H, Total Protein 6.5, Albumin 2.2 L, Globulin 4.3 H, Albumin/Globulin Ratio 0.5 L 08/12/19 03:50: PT 17.8 H, INR 1.5 Current Medications Acetaminophen (Tylenol) 650 mg PO Q4H PRN PRN PRN Reason: Pain (1-10/10) or Fever Acetaminophen (Tylenol) 650 mg RECTAL Q4H PRN PRN PRN Reason: Pain (1-10/10) or Fever Al Hydroxide/Mg Hydroxide (Mylanta Ii) 30 ml PO Q4H PRN PRN PRN Reason: GI DISTRESS Amlodipine Besylate (Norvasc) 5 mg PO DAILY [facility] Last Admin: 08/12/19 10:08 Dose: Not Given Documented by: Aspirin (Ecotrin) 81 mg PO DAILYCM [facility] Last Admin: 08/12/19 09:53 Dose: Not Given Documented by: Atorvastatin Calcium (Lipitor) 80 mg PO QHS [facility] Last Admin: 08/11/19 23:29 Dose: 80 mg Documented by: Bisacodyl (Dulcolax) 10 mg RECTAL X1 PRN PRN Reason: Constipation Carbidopa/Levodopa (Sinemet) 1 tablet PO TID@0200,1000,1800 [facility] Last Admin: 08/12/19 10:08 Dose: Not Given Documented by: Dextrose (D50w Syringe) 0 gm IV X1 PRN; Protocol PRN Reason: Hypoglycemia Docusate Sodium (Colace) 200 mg PO BID [facility] Last Admin: 08/12/19 10:07 Dose: Not Given Documented by: Enoxaparin Sodium (Lovenox) 40 mg SC BID [facility] Last Admin: 08/12/19 10:07 Dose: Not Given Documented by: Fluoxetine HCl (Prozac) 10 mg PO DAILY [facility] Last Admin: 08/12/19 10:08 Dose: Not Given Documented by: Glucagon () 1 mg IM .X1 PRN PRN Reason: Hypoglycemia Guaifenesin (Robitussin) 10 ml PO Q4H PRN PRN PRN Reason: CONGESTION Cefepime HCl 2 gm/ Sodium (Chloride) 100 mls @ 200 mls/hr IV Q12 [facility] Last Admin: 08/12/19 09:50 Dose: 200 mls/hr Documented by: Vancomycin IV Pharmacy to Dose (1 ea/ Sodium Chloride) 500 mls @ 250 mls/hr IV PRN PRN; Protocol PRN Reason: Rx to Dose Sodium Chloride () 250 mls @ 15 mls/hr IV .[id number] PRN PRN Reason: Saline Flush Sodium Chloride () 250 mls @ 15 mls/hr IV .[id number] PRN PRN Reason: Additional IVPB Infusion Vancomycin HCl (Vancomycin) 1,000 mg in 200 mls @ 200 mls/hr IV Q24H [facility] Insulin Glargine (Lantus (Bk)) 12 units SC DAILY [facility] Last Admin: 08/12/19 10:07 Dose: Not Given Documented by: Insulin Human Lispro (Humalog Kwikpen ([facility])) 12 unit SC BIDCM [facility] Last Admin: 08/12/19 09:53 Dose: Not Given Documented by: Insulin Human Lispro (Humalog Kwikpen ([facility])) 0 unit SC TIDCM [facility]; Protocol Last Admin: 08/12/19 09:33 Dose: Not Given Documented by: Magnesium Hydroxide (Milk Of Magnesia) 30 ml PO DAILY PRN PRN PRN Reason: Constipation Melatonin (Melatonin) 3 mg PO QHS [facility] Last Admin: 08/11/19 23:28 Dose: 3 mg Documented by: Metoprolol Tartrate (Lopressor (Beta Carlos Enrique)) 25 mg PO BID [facility] Last Admin: 08/12/19 09:36 Dose: Not Given Documented by: Multivit/Ca Carb/B Cmplx/FA/Prenat (Nephrocaps, Renaphro) 1 capsule PO DAILY [facility] Last Admin: 08/12/19 10:08 Dose: Not Given Documented by: Pantoprazole Sodium (Protonix) 20 mg PO DAILY [facility] Last Admin: 08/12/19 10:08 Dose: Not Given Documented by: Sodium Chloride () 10 - 40 ml IV UD PRN PRN Reason: SALINE FLUSH Last Admin: 08/12/19 00:21 Dose: 20 ml Documented by: Warfarin Sodium (Jantoven) 2.5 mg PO DAILY [facility] Last Admin: 08/12/19 10:07 Dose: Not Given Documented by: Discharge Diet: Low fat/ Low Cholesterol, 2000 mg Sodium Diet, Carb Control Diet Discharge Activity: Return to Normal Activity Weight Bearing Status: Weight bearing as tolerated Home Medications: Medications to take at Discharge Amlodipine [Norvasc] 5 mg PO DAILY 04/22/19 Aspirin [Adult Low Dose Aspirin EC] 81 mg PO DAILY 04/22/19 Atorvastatin Calcium 80 mg PO QHS 04/22/19 Carbidopa/Levodopa 25/100 [Sinemet 25/] 1 tab PO TID 04/22/19 Acetaminophen 650 mg PO Q4H PRN PRN 08/11/19 Acetaminophen 650 mg WV Q4H PRN PRN 08/11/19 Bisacodyl 10 mg WV X1 PRN 08/11/19 Dextrose [Glucose Gel] 1 dose PO X1 PRN 08/11/19 Docusate Sodium [Colace] 200 mg PO BID 08/11/19 Fluoxetine [Prozac] 10 mg PO DAILY 08/11/19 Folic Acid/Vitamin B Comp W-C [Nephrocaps, Renaphro] 1 cap PO DAILY 08/11/19 Glucagon,Human Recombinant [Glucagon Emergency Kit] 1 mg IJ X1 PRN 08/11/19 Glycerin 1 ea WV X1 PRN 08/11/19 Guaifenesin [Robitussin] 10 ml PO Q4H PRN PRN 08/11/19 Insulin Detemir [Levemir] 12 unit SQ DAILY 08/11/19 Insulin Lispro 12 unit SQ BID 08/11/19 Mag Hydrox/Aluminum Hyd/Simeth [Antacid Suspension] 30 ml PO Q4H PRN PRN 08/11/19 Magnesium Hydroxide [Milk Of Magnesia] 30 ml PO DAILY PRN PRN 08/11/19 Melatonin 3 mg PO QHS 08/11/19 Metoprolol Tartrate 25 mg PO BID 08/11/19 Na Phos,M-B/Na Phos,Di-Ba [Fleet Enema] 120 ml RECTAL X1 PRN 08/11/19 Pantoprazole Sodium [Protonix] 20 mg PO DAILY 08/11/19 Warfarin Sodium 1 mg PO SUSA 08/11/19 Warfarin Sodium 2 mg PO MOTUWETHFR 08/11/19 levoFLOXacin tablet [Levaquin tablet] 750 mg PO DAILY 5 Days #5 tab 08/12/19 Following Prescrptions Were Given to Patient: levoFLOXacin tablet [Levaquin tablet] 750 mg PO DAILY 5 Days #5 tab Primary Care Physician: Wanda Cortez MD [Primary Care Provider] - Please follow up with your Primary Care Physician in: within 1-2 weeks Disposition: Jail facility Minutes spent on discharge:: 40 Patient Condition:: Stable Medical Necessity - Tobacco Use Smoking Status: Former smoker Tobacco Use: Non-smoker Meaningful Use Info Meaningful Use Diagnoses (Choose all that apply): None applicable Inpatient E&M: 78085 Disch Hosp
[2019-08-14 14:07] LABS: Creatine Kinase MB 0 % (0-3); Creatine Kinase MM 100 % (97-100); Macro I 0 % (Not Observed); Macro II 0 % (Not Observed)
[2019-08-14 20:59] LABS: Creatine Kinase BB 0 % (0); Creatine Kinase,Total,Serum 52 U/L (32-182)
== END 2019-08-12 11:30 | disposition skilled nursing facility (03) | DRG 193 ==
LOC: ED 20:51 → ICU 08-12 02:42
PROVIDERS: Emergency Provider Emergency Medicine; PCP Internal Medicine; Visit Provider Internal Medicine
DX: J15.9 Unspecified bacterial pneumonia (principal); G93.41 Metabolic encephalopathy; N17.9 Acute kidney failure, unspecified; B94.8 Sequelae of other specified infectious and parasitic diseases; I12.9 Hypertensive chronic kidney disease with stage 1 through stage 4 chronic kidney disease, or unspecified chronic kidney disease; N18.3 Chronic kidney disease, stage 3 (moderate); I25.119 Atherosclerotic heart disease of native coronary artery with unspecified angina pectoris; I48.91 Unspecified atrial fibrillation; I25.2 Old myocardial infarction; G20 Parkinson's disease; F02.80 Dementia in other diseases classified elsewhere, unspecified severity, without behavioral disturbance, psychotic disturbance, mood disturbance, and anxiety; E11.22 Type 2 diabetes mellitus with diabetic chronic kidney disease; Z66 Do not resuscitate; Z79.01 Long term (current) use of anticoagulants; Z79.4 Long term (current) use of insulin; Z79.82 Long term (current) use of aspirin; Z79.899 Other long term (current) drug therapy; Z87.891 Personal history of nicotine dependence; Z86.73 Personal history of transient ischemic attack (TIA), and cerebral infarction without residual deficits
CPT/HCPCS: 36415; 70450; 71045; 80053; 81001; 82550; 82552; 82962; 83605; 83880; 84145; 84484; 85025; 85379; 85610; 85730; 86140; 87040; 87449; 87633; 87635; 93005; 96365; 99285; G2023; J7030; J7050; A4216; U0002

== ENCOUNTER → 2019-08-18 | Outpatient (CLI) | payer MEDICARE, SELFPAY ==
[2019-08-11 22:41] VITALS: BMI 25.5
== END | disposition home or self-care (01) ==
LOC: LABSPEC 13:02
PROVIDERS: PCP Internal Medicine; Visit Provider Nurse Practitioner Adult Health
DX: J98.8 Other specified respiratory disorders (principal)
CPT/HCPCS: 87635; U0004

== ENCOUNTER 2019-09-02 09:44 | Inpatient (IN) | payer MEDICARE, SELFPAY ==
[2019-08-11 22:41] VITALS: BMI 25.5
[2019-09-02] VITALS (30 sets, daily range): BP systolic 110–178; BP diastolic 31–142; PULSE 50–152; RESP 18–35; TEMP 36.3–37.9; O2SAT 86–98; BMI 27.3; BMI 26.9
--- NOTE | 2019-09-02 09:53 | EKG12_ITS ---
Test Reason : MED Blood Pressure : / mmHG Vent. Rate : 116 BPM Atrial Rate : 127 BPM P-R Int : 000 ms QRS Dur : 074 ms QT Int : 312 ms P-R-T Axes : 000 -30 037 degrees QTc Int : 433 ms Atrial fibrillation Left axis deviation Nonspecific ST abnormality Abnormal ECG Confirmed by ATUL MEYERS, KATHY ([id number]), editorial director EMILY CAVANAUGH ([id number]) on 09/05/2019 10:35:02 AM Referred By: NICHELLE Confirmed By:KATHY POLLARD MD
--- NOTE | 2019-09-02 10:02 | ED.DCSUM_ITS ---
History of Present Illness Chief Complaint: Shortness of Breath Informant: Patient, EMS Limited by: Dementia Onset: Today Activity at onset: Rest Timing: Continuous Quality: Dyspnea on exertion Current Severity: Severe Maximum Severity: Severe Worsened by: Coughing Relieved by: Oxygen Associated Symptoms: Cough, Green sputum. Negative for: Bloody Sputum, Chills, Clear sputum, Ear pain, Fever, Post-nasal drainage, Rhinorrhea, Sore throat, Sweats, White sputum, Yellow sputum Chest Pain: None Narrative: 74-year-old female presents to the emergency department by squad from long term for shortness of breath. History from the patient limited due to dementia. Patient has been more short of breath with a productive cough for 1 week. They found her hypoxic and she presents to the emergency department on 4 L. No fevers. Patient has been eating and drinking. Recently admitted to the hospital for coronavirus which she has subsequently had a negative test for. She is not currently on antibiotics. Rest of the history is limited secondary to the patient's dementia PE Risk Factors: Recent immobilization. Negative for: Cancer, OCP + Smoking + > 35, Prior DVT or PE, Recent surgery, Recent travel Prior similar symptoms: Yes Recent Illness/Hospitalization: Yes Past Medical History - Allergies and Home Meds Allergies/Adverse Reactions: Allergies amantadine Allergy (Verified 09/02/19 09:46) PT UNABLE TO RESPOND-NEEDS F/U famotidine Allergy (Verified 09/02/19 09:46) Other nitrofurantoin [From Macrobid] Allergy (Verified 09/02/19 09:46) PT UNABLE TO RESPOND-NEEDS F/U Penicillins [PCN] Allergy (Verified 09/02/19 09:46) PT UNABLE TO RESPOND-NEEDS F/U povidone-iodine Allergy (Verified 09/02/19 09:46) PT UNABLE TO RESPOND-NEEDS F/U shellfish derived Allergy (Verified 09/02/19 09:46) Anaphylaxis Sulfa (Sulfonamide Antibiotics) Allergy (Verified 09/02/19 09:46) PT UNABLE TO RESPOND-NEEDS F/U Primary Care Physician: Wanda Cortez MD [Primary Care Provider] - Prior records reviewed: Yes Past Medical History: - - Parkinson's disease, chronic kidney disease, coronary artery disease, PAF, type 2 diabetes, hypertension, hyperlipidemia, CVA with residual right-sided weakness Surgical History: - - Multiple teeth pulled out and now with dentures, cardiac cath Lives: Residential Smoking Status: Former smoker Alcohol: None Drugs: None - Family History Maternal Family History: Family History (Last Reviewed 08/11/19 @ 21:[address] Sukhdev Mulligan DO) Mother Colon cancer Father COPD (chronic obstructive pulmonary disease) Family History: Reports: Cancer Paternal Family History: Family History (Last Reviewed 08/11/19 @ 21:[address] Sukhdev Mulligan DO) Mother Colon cancer Father COPD (chronic obstructive pulmonary disease) Family History: Reports: Pulmonary Disease Review of Systems All systems negative except as indicated General: Denies: Chills, Fever, Sweats Eyes: Denies: Visual changes - bilaterally, Diplopia ENT: Denies: Rhinorrhea, Sore throat Cardiovascular: Denies: Chest pain, Palpitations Respiratory: Reports: Dyspnea, Cough, Sputum. Denies: Dyspnea on exertion, Orthopnea Gastrointestinal: Denies: Abdominal pain, Nausea, Vomiting, Diarrhea, Melena, Hematochezia Genitourinary: Denies: Dysuria, Hematuria, Frequency Musculoskeletal: Denies: Back pain, Extremity Pain Skin: Denies: Rash, Wounds Neurological: Denies: Headache, Weakness, Numbness Physical Exam Vital Signs/Narrative: Vital Signs Temp Pulse Resp BP Pulse Ox 09/02/19 09:51 98 09/02/19 09:46 98.2 F 70 26 H 110/31 L 90 Inital Vital Signs reviewed: Yes General: Well nourished, Well developed, No Acute Distress Head: Normocephalic, Atraumatic Eyes: Perrl, EOMI ENT: Moist mucous membranes, No rhinorrhea Neck: Supple, Nontender Cardiovascular: Regular rate, Regular rhythm, No murmurs Respiratory: No distress, CTA bilaterally, Diminished, Decreased Air Movement Abdomen: Soft, Nontender, Nondistended, Normal bowel sounds Back: Nontender, Normal Inspection Extremities: Nontender, No edema Skin: Normal color, No rash Neurological: Alert - alert and oriented x 2 which is baseline. , Cranial nerves II-XII grossly intact, Normal Strength, Normal Sensation Psychological: Normal affect, Normal Mood Diagnostic/Tx/Re-eval Chest X-Ray - ED: 1 View, Read by ED Physician, Read by Radiologist, Chronic Changes, Right Infiltrate, Left Infiltrate - Rhythm Strip Rhythm Strip: Sinus Rhythm Rate: 65 Ectopy: None - EKG Initial EKG Interpretation: Sinus Rhythm, No Acute Injury Pattern Prior: Unchanged Treatment - Dyspnea: Oxygen Repeat Evaluation: No change - Medical Decision Making Patient presents to the emergency department for shortness of breath. Vital signs stable currently on 2 L nasal cannula 95% pulse ox she is not normally on oxygen. EKG showed no signs of ischemia. Laboratory work-up was remarkable for an elevated white blood cell count nearly 13. Her lactate was 2.5. Her INR was subtherapeutic at 1.5. Chest x-ray shows bilateral infiltrates. Patient treated with vancomycin and Levaquin for healthcare associated pneumonia as she lives in a long term and has an allergy to penicillin. She was also given Lovenox for her subtherapeutic INR. She is continuing to require oxygen and will be admitted for pneumonia with hypoxemia. I spoke with our hospitalist who also requested we do a coronavirus test. She was positive last month and then had a negative test but she will have a another test done today and will be admitted in stable condition ED Disposition - Plan for ED Patient: Disposition: Acute Care Hospital [facility] Diagnosis: HCAP (healthcare-associated pneumonia), Hypoxemia, CAD (coronary artery disease), DM2 (diabetes mellitus, type 2), Parkinson disease, Essential (primary) hypertension, Sepsis Referrals: Wanda Cortez MD [Primary Care Provider] -
--- NOTE | 2019-09-02 10:33 | RAD_ITS ---
STUDY: X-RAY CHEST REASON FOR EXAM: Female, 74 years old. SOB, O2 IN 70''S LAST NIGHT. THIS MORNIN 84% ON 2L. DX WITH COVID IN JUNE, COVID NEG AT THIS TIME. HX OF CVA RT SIDE DEFICITS. TECHNIQUE: Single AP portable view of the chest. COMPARISON: 11 Aug 2019 FINDINGS: Sternotomy wires are midline. Prominent interstitial markings with areas of likely patchy airspace disease are present bilaterally. There is no demonstrated pleural abnormality. Normal size heart. Normal mediastinum and leyla. Normal visualized pulmonary arteries. There is atherosclerotic calcification of the aortic arch with tortuosity. Normal visualized thoracic spine. Normal visualized ribs, clavicles, and shoulders. There is no demonstrated abnormality of the visualized soft tissue structures of the upper abdomen. RAD/Chest 1 View (Portable) IMPRESSION: Prominent interstitial markings and likely early patchy airspace disease throughout the bilateral lung parenchyma with underlying infiltrates not excluded. Electronically Signed: Romeo Cevallos DO at 10:59 EDT , Service support ,
[2019-09-02 10:40] LABS: Absolute Lymphocyte Count 0.97 X10^3/uL (0.83-4.51); Absolute Neutrophil Count 9.9 X10^3/uL (2.0-7.7); Basophil# 0.02 X10^3/uL; Basophil% 0.2 % (0-1); Eosinophil# 0.27 X10^3/uL; Eosinophils% 2.2 % (0-5); Hematocrit 31.2 % (37-47); Lymphocyte # 0.97 X10^3/ul (4.0); Lymphocyte % 7.8 % (19-41); Mean Corp Hgb Conc 32.1 g/dL (32-36); Mean Corpuscular Hgb 30.1 pg (27.0-32.0); Mean Platelet Vol. 10.4 fl (6.2-12.0); Monocyte# 1.32 X10^3/uL; Monocyte% 10.6 % (0-10); NRBC Flagged by Analyzer 0 % (0-5); Neutrophil # 9.87 X10^3/uL (2.7-7.7); Neutrophil % 78.9 % (47-70); Platelet Count 271 K/mm3 (150-450); RBC Distribution Width CV 13.6 % (11.6-14.6); RBC Distribution Width SD 46.6 fl (35.1-43.9); Red Blood Count 3.32 M/mm3 (4.2-5.4); White Blood Count 12.5 K/mm3 (4.4-11.0)
[2019-09-02 10:50] LABS: International Normalized Ratio 1.4; Prothrombin Time (Protime)PT. 16.6 SECONDS (11.7-14.9)
[2019-09-02 11:06] LABS: Bacteria 0 SEEN /hpf (None Seen); Mucous, Urine 0 SEEN /hpf (<or=2+); Red Blood Cells-Urine 0 SEEN /hpf (0-5)
[2019-09-02 11:08] LABS: Color, Urine Yellow (Yellow); Glucose, Dipstick 50 mg/dl (Normal); Ketone-Dipstick Negative (Negative); Leukocyte Esterase-Dipstick Negative /ul (Negative); Nitrite-Dipstick Negative (Negative); Occult Blood-Urine 10 /ul (Negative); Protein-Dipstick 100 mg/dl (Negative); Urine Bilirubin Dipstick Negative (Negative); Urine Clarity Clear (Clear); Urine Urobilinogen Normal (Normal)
[2019-09-02 11:09] LABS: ALB/GLOB Ratio 0.5 RATIO (0.9-2.4); AST(SGOT) 28 U/L (15-37); Alanine Aminotransfer ALT/SGPT 21 U/L (13-56); Albumin, Serum 2.2 g/dL (3.2-5.0); Alkaline Phosphatase 119 U/L (45-117); Anion Gap 7 (5-15); BUN 38 mg/dL (7-18); BUN/Creat Ratio 26.4 RATIO (10-20); Calcium,Total 8.4 mg/dL (8.5-10.1); Chloride 103 mmol/L (98-107); Creatinine, Serum 1.44 mg/dL (0.55-1.02); EST Glomerular Filtration Rate 38 mL/min (>60); Est Glom Filt Rate - Afr Amer 46 mL/min (>60); Estimated Creatinine Clearance 32.57 ml/min; Globulin 4.7 g/dL (2.2-4.2); Glucose 304 mg/dL (74-106); Potassium 4.9 mmol/L (3.5-5.1); Protein, Total 6.9 g/dL (6.4-8.2); Sodium Level 135 mmol/L (136-145)
[2019-09-02 11:13] LABS: Lactic Acid 2.5 mmol/L (0.4-1.9)
[2019-09-02] MEDS: Enoxaparin 80 MG/0.8 ML Syringe SC ×2 (11:16→23:20)
[2019-09-02] MEDS: levoFLOXacin IV 750 MG/150 ML BAG 100 MG IV (11:16)
--- NOTE | 2019-09-02 11:20 | HP.PCM_ITS ---
History of Present Illness Date of Admission: 09/02/19 Chief Complaint: cough, shortness of breath The patient is a 74 year old F with a past medical history as outlined was admitted through the ED from her [facility] on 09/02/2019 with a complaint of shortness, with a productive cough for 1 week. She was found to be hypoxic today in her [facility] so she was brought into the ED where she was on 4 L of oxygen. She had not had any fever or chills and complained of chest pain which is pleuritic in nature. She denied any nausea vomiting or diarrhea. Patient was diagnosed with coronavirus in June 2019 and subsequently tested negative. Her last negative test was August 18, 2019. In the ED, vitals were significant for respiratory rate of 26 with pulse rate of 64 and blood pressure of 127/56 with temperature of 98.1 Fahrenheit. She was saturating 93% on 2 L of oxygen. Chemistry was significant for lactic acid of 2.5 and creatinine of 1.44 with sodium of 135. Initial troponin was negative. CBC showed hemoglobin of 10 with WBC of 12.5 and platelets of 271. Chest x-ray showed prominent interstitial markings and likely early patchy airspace disease throughout the bilateral lung parenchyma with underlying infiltrates not excluded. She has been admitted to be managed for community-acquired pneumonia. [] Past Medical History Past Medical History (Chronic Problems): Chronic Problems (Last Updated 08/11/19 @ 21:[address] Sukhdev Mulligan DO) Parkinson disease (Chronic) CAD (coronary artery disease) (Chronic) DM2 (diabetes mellitus, type 2) (Chronic) Atherosclerotic heart disease [place] coronary artery w/angina pectoris (Chronic) Essential (primary) hypertension (Chronic) Nicotine dependence (Chronic) Medical History: Medical History (Last Updated 08/11/19 @ 21:[address] Sukhdev Mulligan DO) NSTEMI (non-ST elevated myocardial infarction) (Resolved) Onset Date: 04/22/19 I21.4 Atherosclerotic heart disease [place] coronary artery w/angina pectoris (Chronic) I25.119 Essential (primary) hypertension (Chronic) I10 Nicotine dependence (Chronic) F17.200 Afib I48.91 Chronic kidney disease (CKD) N18.9 Parkinson disease G20 Type 2 diabetes mellitus E11.9 Allergies amantadine Allergy (Verified 09/02/19 09:46) PT UNABLE TO RESPOND-NEEDS F/U famotidine Allergy (Verified 09/02/19 09:46) Other nitrofurantoin [From Macrobid] Allergy (Verified 09/02/19 09:46) PT UNABLE TO RESPOND-NEEDS F/U Penicillins [PCN] Allergy (Verified 09/02/19 09:46) PT UNABLE TO RESPOND-NEEDS F/U povidone-iodine Allergy (Verified 09/02/19 09:46) PT UNABLE TO RESPOND-NEEDS F/U shellfish derived Allergy (Verified 09/02/19 09:46) Anaphylaxis Sulfa (Sulfonamide Antibiotics) Allergy (Verified 09/02/19 09:46) PT UNABLE TO RESPOND-NEEDS F/U Home Medications: Ambulatory Orders Medication Instructions Recorded Aspirin [Adult Low Dose Aspirin EC] 81 mg PO DAILY 04/22/19 Atorvastatin Calcium 80 mg PO QHS 04/22/19 Acetaminophen 650 mg PO Q4H PRN PRN 08/11/19 Bisacodyl 10 mg RC DAILY PRN PRN 08/11/19 Dextrose [Glucose Gel] 1 dose PO X1 PRN 08/11/19 Docusate Sodium [Colace] 200 mg PO BID 08/11/19 Fluoxetine [Prozac] 10 mg PO DAILY 08/11/19 Folic Acid/Vitamin B Comp W-C 1 cap PO DAILY 08/11/19 [Nephrocaps, Renaphro] Glucagon,Human Recombinant 1 mg IJ X1 PRN 08/11/19 [Glucagon Emergency Kit] Glycerin 1 ea PA X1 PRN 08/11/19 Guaifenesin [Robitussin] 10 ml PO Q4H PRN PRN 08/11/19 Insulin Detemir [Levemir] 12 unit SQ DAILY 08/11/19 Insulin Lispro 12 unit SQ BID 08/11/19 Mag Hydrox/Aluminum Hyd/Simeth 30 ml PO Q4H PRN PRN 08/11/19 [Antacid Suspension] Magnesium Hydroxide [Milk Of 30 ml PO DAILY PRN PRN 08/11/19 Magnesia] Melatonin 3 mg PO QHS 08/11/19 Metoprolol Tartrate 25 mg PO BID 08/11/19 Na Phos,M-B/Na Phos,Di-Ba [Fleet 120 ml RECTAL X1 PRN 08/11/19 Enema] Pantoprazole Sodium [Protonix] 20 mg PO DAILY 08/11/19 Warfarin Sodium 2 mg PO SUMOWEFR 08/11/19 Warfarin Sodium 4 mg PO TUTHSA 08/11/19 Acetaminophen 650 mg PA Q4H PRN PRN 09/02/19 Amlodipine [Norvasc] 5 mg PO DAILY 09/02/19 Carbidopa/Levodopa 25/100 [Sinemet] 1 tab PO TIDAC 09/02/19 Furosemide [Lasix] 20 mg PO DAILY 09/02/19 Polyethylene Glycol 3350 [Miralax] 17 gm PO DAILY PRN PRN 09/02/19 Surgical History: Surgical History (Last Reviewed 08/11/19 @ 21:[address] Sukhdev Mulligan DO) History of left heart catheterization Onset Date: 04/23/19 Z98.890 Surgical History: - - Multiple teeth pulled out and now with dentures, cardiac c ath Lives: Senior Living Smoking Status: Former smoker Alcohol: None Drugs: None - *Family History Maternal Family History: Family History (Last Reviewed 08/11/19 @ 21:[address] Sukhdev Mulligan DO) Mother Colon cancer Father COPD (chronic obstructive pulmonary disease) History Items: Cancer Paternal Family History: Family History (Last Reviewed 08/11/19 @ 21:[address] Sukhdev Mulligan DO) Mother Colon cancer Father COPD (chronic obstructive pulmonary disease) History Items: Pulmonary Disease Review of Systems Constitutional: Denies: Anorexia, Chills, Fever, Malaise, Weakness Eyes: Denies: Blurred vision HEENT: Denies: Head Aches, Sinus Congestion, Sinus Drainage Cardiovascular: Reports: Chest Pain - pleuritic. Denies: Chest Pressure, Chest Tightness, Edema, Light Headedness, Orthopnea, Palpitations, Paroxysmal Noc. Dyspnea, Syncope Respiratory: Reports: Cough, Pleuritic Pain, Shortness of Breath, Shortness of breath at rest, Shortness of breath upon exertion, Sputum production. Denies: Wheezing Gastrointestinal: Denies: Abdominal Pain, Nausea, Vomiting Genitourinary: Denies: Dysuria Musculoskeletal: Denies: Joint Pain, Joint Tenderness Skin: Denies: Rash, Wounds Neurological: Denies: Numbness, Tingling, Focal weakness Psychiatric: Denies: Anxiety, Depression, Homicidal Ideations, Suicidal Ideations Hematologic/ Lymphatic: Denies: Easy Bruising, Easy Bleeding VTE Information - Inpt Only VTE Present on Admission: No VTE Pharm Prophylaxis ordered?: Yes Patient Problems: Active and Suspected Problems (Last Updated 08/11/19 @ 21:[address] Sukhdev Mulligan, DO) HCAP (healthcare-associated pneumonia) (Acute) Hypoxemia (Acute) Sepsis (Acute) - Physical Exam Vitals/I&O's: Vital Signs Temp Pulse Resp BP Pulse Ox 98.1 F 64 26 H 127/56 H 93 09/02/19 11:18 09/02/19 11:18 09/02/19 11:18 09/02/19 11:18 09/02/19 11:18 Oxygen Flow Rate (L/min) 2 Oxygen Delivery Method Nasal Cannula Weight: 169 lb 12.095 oz Body Mass Index (BMI) 27.3 General: Alert, Cooperative HEENT: Atraumatic, PERRLA, EOMI, Normocephalic Oral: Dry Mucosa Neck: Supple, No JVD Lungs: Tachypneic, - - decreased breath sounds bibasally, with coarse crackles in mid and lower lung [place] bilaterally. on 2L of oxygen by nasal canula Cardiovascular: Regular rate, Regular Rhythm, Normal S1, Normal S2 Abdomen: Bowel Sounds Present, Soft, Non Tender Extremities: No clubbing, No cyanosis, No edema, Capillary Refill Less than 3 Seconds Skin: No rashes, No breakdown Musculoskeletal: No Tenderness to Palpation of Joints or Extremities Lymphatic: No Cervical, Supraclavicular, or Inguinal Adenopathy Neurological: Cranial nerves II-XII grossly intact, Neuro grossly intact, Motor Exam 5/5 strength throughout Psych/Mental Status: Anxious, Flat Affect Laboratory Results 09/02/19 10:25: WBC 12.5 H, RBC 3.32 L, Hgb 10.0 L, Hct 31.2 L, MCV 94.0, MCH 30.1, MCHC 32.1, RDW Std Deviation 46.6 H, RDW Coeff of Abbie 13.6, Plt Count 271, MPV 10.4, Immature Gran % (Auto) 0.300, Neut % (Auto) 78.9 H, Lymph % (Auto) 7.8 L, [place] % (Auto) 10.6 H, Eos % (Auto) 2.2, Baso % (Auto) 0.2, Absolute Neuts (auto) 9.9 H, Absolute Lymphs (auto) 0.97, Nucleated RBC % 0 09/02/19 10:25: PT 16.6 H, INR 1.4 09/02/19 10:25: Sodium 135 L, Potassium 4.9, Chloride 103, Carbon Dioxide 25.0, Anion Gap 7, BUN 38 H, Creatinine 1.44 H, Estim Creat Clear Calc 32.57, Est GFR (MDRD) Af Amer 46 L, Est GFR (MDRD) Non-Af 38 L, BUN/Creatinine Ratio 26.4 H, Glucose 304 H, Calcium 8.4 L, Total Bilirubin 0.60, AST 28, ALT 21, Alkaline Phosphatase 119 H, Troponin I < 0.015, Total Protein 6.9, Albumin 2.2 L, Globulin 4.7 H, Albumin/Globulin Ratio 0.5 L 09/02/19 10:25: Lactic Acid 2.5 H* 09/02/19 10:58: Urine Color Yellow, Urine Clarity Clear, Urine pH 6.0, Ur Specific [place]ic[place] 1.010, Urine Protein 100 H, Urine Glucose (UA) 50 H, Urine Ketones Negative, Urine Occult Blood 10 H, Urine Nitrite Negative, Urine Bilirubin Negative, Urine Urobilinogen Normal, Ur Leukocyte Esterase Negative, Urine RBC Pending, Urine WBC Pending, Ur Squamous Epith Cells Pending, Urine Bacteria Pending, Urine Mucus Pending Diagnostic Data Chest X-Ray 09/02/19 10:33 IMPRESSION: Prominent interstitial markings and likely early patchy airspace disease throughout the bilateral lung parenchyma with underlying infiltrates not excluded. Electronically Signed: Romeo Cevallos DO at 10:59 EDT , Service support , Current Medications Levofloxacin (Levaquin Iv) 750 mg in 150 mls @ 100 mls/hr IV X1 ONE Stop: 09/02/19 12:17 Last Admin: 09/02/19 11:16 Dose: 100 mls/hr Documented by: Vancomycin HCl 1,250 mg/ (Sodium Chloride) 275 mls @ 167 mls/hr IV X1 ONE Stop: 09/02/19 12:38 Assessment/Plan All Active Problems (Last Updated 08/11/19 @ 21:[address] Sukhdev Jopperi, DO) Unstable angina (Resolved) Pneumonia (Acute) Confusion (Acute) COVID-19 (Acute) Afib (Acute) HCAP (healthcare-associated pneumonia) (Acute) Hypoxemia (Acute) Sepsis (Acute) NSTEMI (non-ST elevated myocardial infarction) (Resolved 04/22/19) 74 y/o admitted with a complaint of shortness of breath 1. Sepsis due to community acquired pneumonia * SIRS criteria is 2/4 with tachypnea and leukocytosis and lactic acid is also 2.5. * Chest x-ray shows evidence of airspace disease bilaterally. Call with test is pending. * She received IV levofloxacin in the ED. * Admit to PCU with telemetry. * Hydrated with IV fluid normal saline. continue IV levofloxacin * Titrate oxygen to maintain saturation above 90%. * Breathing treatments with bronchodilators. * Check urine for strep and Legionella and blood cultures as well as sputum cultures and respiratory panel. * 2. Community-acquired pneumonia: As under 1. 3. Hypertension: On amlodipine. 4. Parkinson's disease and dementia: Stable. On levodopa carbidopa. 5. Type 2 diabetes mellitus: On Lantus 12 units daily. Insulin sliding scale. Accu-Cheks AC at bedtime. 6. CKD: Stable. 7. CAD: On aspirin, statin and metoprolol. 8. Afibl; rate controlled. On coumadin. INR is1.4. Received therapeutic lovenox in the ED. CODE STATUS: DNR CCA * Patient counseled extensively about different types of CODE STATUS including full code, DNR CCA and DNR CCA. Patient elects to be DNRCCA. Papers from [facility] support this * Total zecw-dl-basp time 16 minutes. Inpatient E&M: 11610 Init Hosp L3 Procedures: 27350 Advncd Care Plan 30 Min
--- NOTE | 2019-09-02 11:24 | ED.VISSUMM ---
- ER Visit Summary Date of Service: 09/02/19 Chief Complaint: [Cough, shortness of breath, hypoxemia] History of Present Illness: The patient is a 74 F [resents to the emergency department via EMS from custodial. Patient seen with physician family practice physician assistant Nixon Kaur. Please see his dictation. Patient tested positive for COVID earlier in the year and was admitted to this facility. She has subsequently since tested negative for COVID. About a week ago she started having cough that is been at times productive. She denies any fever. She denies any chest pain. Patient currently on Coumadin for history of A. fib.] Physical Examination: [HEENT-PERRLA, EOMI. Cranial nerves II through XII grossly intact. TMs clear. Mucous membranes moist. No adenopathy. Cardiovascular-regular rate and rhythm. No murmurs auscultated. Lungs-good aeration bilaterally. She is got some coarse breath sounds bilaterally some faint expiratory wheezes. Patient also with few rales in the bases. Mild tachypnea. No accessory muscle use or retractions. Abdomen-normoactive bowel sounds, soft, nontender, no rebound or rigidity, no peritoneal signs. Extremities-intact ?4, normal range of motion, normal pulses, atraumatic] Test Results: [Labs were significant for slightly elevated white count of 12.6. Lactate was 2.5. Chemistries unremarkable. Chest x-ray showed possible bilateral infiltrates. INR was subtherapeutic at 1.4.] Emergency Department Course and Treatment: [IV line established in the right EJ as patient was a difficult IV stick. Patient was started on Levaquin and vancomycin she is pen allergic. Patient was given normal saline. Blood cultures ordered and pending.] Treatment Plan: [Admit] Disposition: [Admit] Impression: [] Healthcare acquired pneumonia Sepsis Hypoxemia This note was generated with [employer] software. It may contain incorrect words, spelling, and punctuation that were not noted in review of the chart prior to signing ED Disposition - Plan for ED Patient: Disposition: Acute Care Hospital [facility] Diagnosis: HCAP (healthcare-associated pneumonia), Hypoxemia, CAD (coronary artery disease), DM2 (diabetes mellitus, type 2), Parkinson disease, Essential (primary) hypertension, Sepsis Referrals: Wanda Cortez MD [Primary Care Provider] -
[2019-09-02 11:29] LABS: Amorphous Sediment 1+; Squamous Epithelial Cells - UA 0-5 SEEN /hpf (5-10); White Blood Cells 0 SEEN /hpf (0-5)
[2019-09-02 13:28] LABS: Probe Check PASS; Specimen Processing Control PASS
[2019-09-02 14:32] LABS: Reflex Lactate? Y
--- NOTE | 2019-09-02 15:32 | CASEMGMT ---
SW reviewed chart, pt is here from [facility]. SW called [facility], confirmed pt is from there and can return when ready. SW spoke w/pt also and confirmed plan is for her to return to [facility] when ready. Green sheet on chart in event pt is ready for discharge on the weekend. MAKAYLA Gutierres
[2019-09-02] MEDS: 0.9% Normal Saline 1,000 ML 150 ML IV (16:33)
[2019-09-02] MEDS: Carbidopa/Levodopa 25/100 Tablet PO (17:12)
[2019-09-02] MEDS: Insulin Lispro 100 UNIT/ML INSULN.PEN SC ×2 (17:13→21:38)
[2019-09-02] MEDS: Glucerna Shake 120 ML LIQUID PO (17:17)
[2019-09-02 17:30] LABS: Bedside Glucose 157 mg/dL (70-110)
--- NOTE | 2019-09-02 17:48 | EKG12_ITS ---
Test Reason : Blood Pressure : / mmHG Vent. Rate : 065 BPM Atrial Rate : 065 BPM P-R Int : 168 ms QRS Dur : 078 ms QT Int : 436 ms P-R-T Axes : 036 -22 -01 degrees QTc Int : 453 ms Normal sinus rhythm Inferior infarct , age undetermined T wave abnormality, consider anterior ischemia Abnormal ECG Confirmed by ATUL MEYERS, KATHY ([id number]), editorial assistant USDHAKAR LAMBERT ([id number]) on 09/04/2019 1:17:38 PM Referred By: LONNIE Confirmed By:KATHY POLLARD MD
[2019-09-02] MEDS: dilTIAZem 25 MG/5 ML Vial IV BOLUS (17:55)
[2019-09-02 18:35] LABS: Lactic Acid 1.5 mmol/L (0.4-1.9)
[2019-09-02 18:47] LABS: BNP,B-Type NATRIURETIC PEPTIDE 1293.6 pg/mL (0-100)
--- NOTE | 2019-09-02 19:00 | EKG12_ITS ---
Test Reason : RYTHYM CHANGE Blood Pressure : / mmHG Vent. Rate : 144 BPM Atrial Rate : 144 BPM P-R Int : 000 ms QRS Dur : 062 ms QT Int : 278 ms P-R-T Axes : 000 -31 194 degrees QTc Int : 430 ms Supraventricular tachycardia with Premature supraventricular complexes Left axis deviation Marked ST abnormality, possible lateral subendocardial injury Abnormal ECG Confirmed by KATHY POLLARD MD ([id number]), editorial manager EMILY CAVANAUGH ([id number]) on 09/05/2019 10:35:18 AM Referred By: NICHELLE Confirmed By:KATHY POLLARD MD
[2019-09-02] MEDS: Metoprolol Tartrate 25 MG Tablet PO ×2 (21:38)
[2019-09-02] MEDS: MELATONIN 3 MG TABLET PO (21:38)
[2019-09-02] MEDS: Atorvastatin Calcium 80 MG Tablet PO (21:39)
[2019-09-02] MEDS: Docusate Sodium 100 MG Capsule 200 MG PO (21:39)
[2019-09-02] MEDS: Furosemide 40 MG/4 ML Vial IV (21:39)
[2019-09-02] MEDS: 0.9% Saline Lock 10 ML Syringe IV (21:41)
[2019-09-02 22:11] LABS: Bedside Glucose 254 mg/dL (70-110)
[2019-09-03] VITALS (23 sets, daily range): BP systolic 122–155; BP diastolic 40–96; PULSE 47–105; RESP 18–24; TEMP 36.5–37.9; O2SAT 88–98
[2019-09-03 06:32] LABS: Absolute Lymphocyte Count 0.84 X10^3/uL (0.83-4.51); Absolute Neutrophil Count 7.7 X10^3/uL (2.0-7.7); Basophil# 0.02 X10^3/uL; Basophil% 0.2 % (0-1); Hematocrit 28.2 % (37-47); Lymphocyte # 0.84 X10^3/ul (4.0); Lymphocyte % 8.3 % (19-41); Mean Corp Hgb Conc 31.9 g/dL (32-36); Mean Corpuscular Hgb 30.3 pg (27.0-32.0); Mean Corpuscular Volume 94.9 fL (81-99); Mean Platelet Vol. 10.5 fl (6.2-12.0); Monocyte# 1.27 X10^3/uL; Monocyte% 12.5 % (0-10); NRBC Flagged by Analyzer 0 % (0-5); Neutrophil # 7.66 X10^3/uL (2.7-7.7); Neutrophil % 75.6 % (47-70); Platelet Count 246 K/mm3 (150-450); RBC Distribution Width CV 13.7 % (11.6-14.6); RBC Distribution Width SD 46.9 fl (35.1-43.9); Red Blood Count 2.97 M/mm3 (4.2-5.4); White Blood Count 10.1 K/mm3 (4.4-11.0)
[2019-09-03] MEDS: Carbidopa/Levodopa 25/100 Tablet PO ×3 (06:44→17:04)
[2019-09-03] MEDS: Insulin Lispro 100 UNIT/ML INSULN.PEN SC ×3 (06:44→21:31)
[2019-09-03 06:45] LABS: International Normalized Ratio 1.6; Prothrombin Time (Protime)PT. 18.5 SECONDS (11.7-14.9)
[2019-09-03 06:51] LABS: Bedside Glucose 165 mg/dL (70-110)
[2019-09-03 06:56] LABS: Anion Gap 6 (5-15); BUN 35 mg/dL (7-18); BUN/Creat Ratio 25.7 RATIO (10-20); Calcium,Total 8.4 mg/dL (8.5-10.1); Chloride 105 mmol/L (98-107); Creatinine, Serum 1.36 mg/dL (0.55-1.02); EST Glomerular Filtration Rate 40 mL/min (>60); Est Glom Filt Rate - Afr Amer 49 mL/min (>60); Estimated Creatinine Clearance 34.49 ml/min; Glucose 173 mg/dL (74-106); Potassium 4.4 mmol/L (3.5-5.1); Sodium Level 136 mmol/L (136-145)
[2019-09-03] MEDS: Glucerna Shake 120 ML LIQUID PO ×3 (08:44→17:04)
[2019-09-03] MEDS: Aspirin E.C. 81 MG Tablet PO (08:44)
[2019-09-03] MEDS: Folic Acid/Vitamin B Comp W-C 1 Capsule 1 CAP PO (08:45)
[2019-09-03] MEDS: Docusate Sodium 100 MG Capsule 200 MG PO (08:45)
[2019-09-03] MEDS: Furosemide 40 MG/4 ML Vial IV (08:48)
[2019-09-03] MEDS: Metoprolol Tartrate 50 MG Tablet PO ×2 (08:49→21:32)
[2019-09-03] MEDS: FLUoxetine 10 MG Capsule PO (08:50)
[2019-09-03] MEDS: amLODIPine 5 MG Tablet PO (08:50)
[2019-09-03] MEDS: Pantoprazole Sodium 20 MG Tablet PO (08:50)
--- NOTE | 2019-09-03 09:09 | CON.PCM_ITS ---
Reason for Consult Date of Consultation: 09/03/19 Reason for Consultation: Evaluation of irregular heartbeat History of Present Illness: The patient is a 74 year old F with a past medical history of coronary artery disease status post cardiac catheterization in March 2019. She presented to the emergency room from the detention where she was noted to be hypoxic she was brought into the ED where she was placed on oxygen. She denies any fever or chills she has not had any nausea or vomiting or diarrhea. She apparently was diagnosed with coronavirus in June 2019 and subsequently has tested negative with her last test in July 2019. Her initial troponin was negative. During the night she developed a tachycardia and was noted to be in atrial fibrillation with a rapid ventricular response rate and EKG changes suggestive of subendocardial ischemia. She was started on intravenous diltiazem and through the night subsequently converted back to sinus rhythm. This morning she is doing well with no complaints. She did not have any chest pain through the night either. Her history is significant for coronary artery disease with known triple-vessel disease in March 2019 and status post transfer to the [facility] where she underwent coronary artery bypass graft surgery. The details of the above are not known at this particular time. She was subsequently transferred from the to the detention. She has not followed up with her belting inspector Dr. Prescott since [.] Past Medical History Allergies/Adverse Reactions: Allergies amantadine Allergy (Verified 09/02/19 09:46) PT UNABLE TO RESPOND-NEEDS F/U famotidine Allergy (Verified 09/02/19 09:46) Other nitrofurantoin [From Macrobid] Allergy (Verified 09/02/19 09:46) PT UNABLE TO RESPOND-NEEDS F/U Penicillins [PCN] Allergy (Verified 09/02/19 09:46) PT UNABLE TO RESPOND-NEEDS F/U povidone-iodine Allergy (Verified 09/02/19 09:46) PT UNABLE TO RESPOND-NEEDS F/U shellfish derived Allergy (Verified 09/02/19 09:46) Anaphylaxis Sulfa (Sulfonamide Antibiotics) Allergy (Verified 09/02/19 09:46) PT UNABLE TO RESPOND-NEEDS F/U Home Medications: Ambulatory Orders Medication Instructions Recorded Aspirin [Adult Low Dose Aspirin EC] 81 mg PO DAILY 04/22/19 Atorvastatin Calcium 80 mg PO QHS 04/22/19 Acetaminophen 650 mg PO Q4H PRN PRN 08/11/19 Bisacodyl 10 mg RC DAILY PRN PRN 08/11/19 Dextrose [Glucose Gel] 1 dose PO X1 PRN 08/11/19 Docusate Sodium [Colace] 200 mg PO BID 08/11/19 Fluoxetine [Prozac] 10 mg PO DAILY 08/11/19 Folic Acid/Vitamin B Comp W-C 1 cap PO DAILY 08/11/19 [Nephrocaps, Renaphro] Glucagon,Human Recombinant 1 mg IJ X1 PRN 08/11/19 [Glucagon Emergency Kit] Glycerin 1 ea RI X1 PRN 08/11/19 Guaifenesin [Robitussin] 10 ml PO Q4H PRN PRN 08/11/19 Insulin Detemir [Levemir] 12 unit SQ DAILY 08/11/19 Insulin Lispro 12 unit SQ BID 08/11/19 Mag Hydrox/Aluminum Hyd/Simeth 30 ml PO Q4H PRN PRN 08/11/19 [Antacid Suspension] Magnesium Hydroxide [Milk Of 30 ml PO DAILY PRN PRN 08/11/19 Magnesia] Melatonin 3 mg PO QHS 08/11/19 Metoprolol Tartrate 25 mg PO BID 08/11/19 Na Phos,M-B/Na Phos,Di-Ba [Fleet 120 ml RECTAL X1 PRN 08/11/19 Enema] Pantoprazole Sodium [Protonix] 20 mg PO DAILY 08/11/19 Warfarin Sodium 2 mg PO SUMOWEFR 08/11/19 Warfarin Sodium 4 mg PO TUTHSA 08/11/19 Acetaminophen 650 mg RI Q4H PRN PRN 09/02/19 Amlodipine [Norvasc] 5 mg PO DAILY 09/02/19 Carbidopa/Levodopa 25/100 [Sinemet] 1 tab PO TIDAC 09/02/19 Furosemide [Lasix] 20 mg PO DAILY 09/02/19 Polyethylene Glycol 3350 [Miralax] 17 gm PO DAILY PRN PRN 09/02/19 Past Medical History (Chronic Problems): Chronic Problems (Last Updated 08/11/19 @ 21:[address] Sukhdev Mulligan, DO) Parkinson disease (Chronic) CAD (coronary artery disease) (Chronic) DM2 (diabetes mellitus, type 2) (Chronic) Atherosclerotic heart disease [place] coronary artery w/angina pectoris (Chronic) Essential (primary) hypertension (Chronic) Nicotine dependence (Chronic) Surgical History: coronary bypass surgery, - - Multiple teeth pulled out and now with dentures, cardiac cath - *Family History Maternal Family History: Family History (Last Reviewed 08/11/19 @ 21:[address] Sukhdev Mulligan DO) Mother Colon cancer Father COPD (chronic obstructive pulmonary disease) History Items: Cancer Paternal Family History: Family History (Last Reviewed 08/11/19 @ 21:[address] Sukhdev Mulligan DO) Mother Colon cancer Father COPD (chronic obstructive pulmonary disease) History Items: Pulmonary Disease Lives: [place] Smoking Status: Former smoker Alcohol: None Drugs: None Review of Systems - Review of Systems General: Reports: Fatigue, Malaise. Denies: Fever, Night Sweats HEENT: Denies: Vision Change Cardiovascular: Reports: Shortness of Breath. Denies: Chest Discomfort, Orthopnea, PND, Peripheral Edema, Palpitations, Lightheadedness, Dizziness, Near Syncope, Syncope Respiratory: Denies: Cough, Sputum Production, Hemoptysis Gastrointestinal: Denies: Hematemesis, Hematochezia, Melena Genitourinary: Denies: Dysuria, Hematuria Muscoloskeletal: Denies: Myalgias Skin: Denies: Rash Psychiatric: Denies: Anxiety Endocrine: Denies: Excessive Sweating Hematologic/ Lymphatic: Denies: Anemia Subjectve: Elderly lady sitting in bed slightly pleasantly confused Objective: Vital Signs Temp Pulse Resp BP Pulse Ox 99.5 F H 54 L 19 H 143/42 H 96 09/03/19 03:25 09/03/19 08:49 09/03/19 08:00 09/03/19 08:00 09/03/19 08:00 Oxygen Flow Rate (L/min) 4 Oxygen Delivery Method Nasal Cannula Weight: 167 lb 5.294 oz Body Mass Index (BMI) 26.9 Intake and Output for Last 24 Hours 09/01/19 09/02/19 09/03/19 23:59 23:59 23:59 Intake Total 1296.75 / 1301.75 146.5 / 146.5 Output Total 700 / 700 Balance 1296.75 / 1301.75 -553.5 / -553.5 General: Awake, Alert, Oriented x 3 HEENT: PERRL, EOMI, Sclera Non Icteric Neck: Supple, Good ROM, No Lymph Node Enlargement Chest Wall: Midline Sternotomy Incision Lungs: Diminished Kavin Bases Cardiovascular: Regular Rhythm, Normal S1, Normal S2, No Murmurs, No Rubs, No Gallops Vascular: No Carotid Bruits, Normal Femoral Pulses, Normal Radial Pulses, Normal Dorsalis Pedal Pulse, Normal Posterior Tibial Pulses Abdomen: Bowel Sounds Present, Soft, Non Tender, No HSM, No Organomegaly Extremities: No Cyanosis, No Clubbing, No edema Musculoskeletal: No Erythema Skin: No Rashes Lymphatic: No Lymph Node Enlargement Neurological: No Focal Motor or Sensory Deficit Psych/Mental Status: Appropriate 09/02/19 10:25: WBC 12.5 H, RBC 3.32 L, Hgb 10.0 L, Hct 31.2 L, MCV 94.0, MCH 30.1, MCHC 32.1, Plt Count 271, MPV 10.4, Immature Gran % (Auto) 0.300, Neut % (Auto) 78.9 H, Lymph % (Auto) 7.8 L, [place] % (Auto) 10.6 H, Eos % (Auto) 2.2, Baso % (Auto) 0.2, Absolute Neuts (auto) 9.9 H, Nucleated RBC % 0 09/02/19 10:25: PT 16.6 H, INR 1.4 09/02/19 10:25: Sodium 135 L, Potassium 4.9, Chloride 103, Carbon Dioxide 25.0, Anion Gap 7, BUN 38 H, Creatinine 1.44 H, Est GFR (MDRD) Af Amer 46 L, Est GFR (MDRD) Non-Af 38 L, BUN/Creatinine Ratio 26.4 H, Glucose 304 H, Calcium 8.4 L, Total Bilirubin 0.60, Troponin I < 0.015 09/02/19 10:25: Lactic Acid 2.5 H* 09/02/19 10:25: B-Natriuretic Peptide 1293.6 H 09/02/19 10:58: Urine Color Yellow, Urine Clarity Clear, Urine pH 6.0, Ur Specific [place] 1.010, Urine Protein 100 H, Urine Glucose (UA) 50 H, Urine Ke tones Negative, Urine Occult Blood 10 H, Urine Nitrite Negative, Urine Bilirubin Negative, Urine Urobilinogen Normal, Ur Leukocyte Esterase Negative, Urine RBC 0 SEEN, Urine WBC 0 SEEN 09/02/19 16:40: Lactic Acid Cancelled 09/02/19 18:00: Troponin I < 0.015 09/02/19 18:02: Lactic Acid 1.5 09/02/19 21:10: Troponin I < 0.015 09/02/19 23:51: Troponin I < 0.015 09/03/19 06:10: WBC 10.1, RBC 2.97 L, Hgb 9.0 L, Hct 28.2 L, MCV 94.9, MCH 30.3, MCHC 31.9 L, Plt Count 246, MPV 10.5, Immature Gran % (Auto) 0.400, Neut % (Auto) 75.6 H, Lymph % (Auto) 8.3 L, [place] % (Auto) 12.5 H, Eos % (Auto) 3.0, Baso % (Auto) 0.2, Absolute Neuts (auto) 7.7, Nucleated RBC % 0 09/03/19 06:10: PT 18.5 H, INR 1.6 09/03/19 06:10: Sodium 136, Potassium 4.4, Chloride 105, Carbon Dioxide 25.0, Anion Gap 6, BUN 35 H, Creatinine 1.36 H, Est GFR (MDRD) Af Amer 49 L, Est GFR (MDRD) Non-Af 40 L, BUN/Creatinine Ratio 25.7 H, Glucose 173 H, Calcium 8.4 L Rhythm: EKG: ECHO: Stress Test: Cardiac Cath: PCI: CT Surgery: Holter monitor: EPS: PPM: CXR: Chest CT Scan: Assessment/Plan 1. Paroxysmal atrial fibrillation * Patient presents with shortness of breath and developed paroxysmal atrial fibrillation with a rapid ventricular response rate and EKG changes she spontaneously converted to sinus rhythm with intravenous Cardizem. * Recommendation will be to increase her beta-yoanna to metoprolol 50 mg twice a day * Consider the addition of amiodarone 200 mg a day * Will suggest anticoagulation with factor Xa inhibitor rather than with Coumadin * 2. Coronary artery disease * Patient is status post coronary artery bypass surgery * Would continue with risk factor modification and encourage follow-up in the primary belting inspector office. * Cardiac enzymes thus far remain negative and I do not think that this is an acute ischemic event. 3. Hypertension * Good control continue current medical therapy * 4. Shortness of breath * I suspect the above is secondary to diastolic heart failure from the atrial fibrillation. Her chest x-ray is suggestive of failure and she appears to have improved with the diuretics. * Would recommend an echocardiogram to assess her left ventricular function. * Will continue intravenous diuretics through today * * Further recommendations to be made based on the results of the above. * * Thank you for allowing me to participate in the care of your patient. Please don't hesitate to call if any issues arise.
--- NOTE | 2019-09-03 09:09 | NURSING ---
Attempted to contact Sahara Peng, patient's POA regarding PICC placement. No answer. Unable to leave message as mailbox for phone number [phone] is not set up.
--- NOTE | 2019-09-03 09:30 | ECHOCS_ITS ---
Reason For Study: S/P CABG Procedure This was a 2D Doppler, Color Flow transthoracic echocardiogram. The study was technically difficult. PT had extreme tenderness in apical views. Contrast injection was performed. Exam performed portable in patient room. Left Ventricle Normal LV size. Mild concentric left ventricular hypertrophy. Left ventricular systolic function is normal. The estimated ejection fraction is 60 %. Stage 2 diastolic dysfunction. No regional wall motion abnormalities noted. Right Ventricle Normal RV size. Normal systolic function. Atria The left atrium is moderately enlarged. Normal right atrium. Mitral Valve Normal mitral valve. Mild (1+) eccentric mitral valve insufficiency. Tricuspid Valve Normal tricuspid valve. Trivial tricuspid valve insufficiency. Pulmonary artery systolic pressure is 30 mmHg. Aortic Valve Trisinus/trileaflet aortic valve. Great Vessels Normal aortic root. The pulmonary artery is normal size. Pericardium/Pleural No pericardial effusion. Medication Diluted definity 3.0ml given slow IV push to enhance endocardial definition. MMode/2D Measurements & Calculations LVIDd: 4.3 cm IVSd: 1.2 cm Ao root diam: 3.2 cm LVIDs: 3.0 cm LVPWd: 1.2 cm RVDd: 3.3 cm FS: 29.5 % LAV(MOD-sp4): 86.2 ml LA A4 area: 27.7 cm2 LA dimension(2D): 3.7 cm RA A4 area: 19.0 cm2 Time Measurements MV dec time: 0.19 sec Doppler Measurements & Calculations MV E max domingo: 89.0 cm/sec Lat Peak E' Domingo: 7.8 cm/sec Med Peak E' Domingo: 5.9 cm/sec MV A max dominog: 68.6 cm/sec E/E' lat: 11.4 E/E' med: 15.2 MV E/A: 1.3 Ao V2 max: 103.5 cm/sec LV V1 max: 61.8 cm/sec PA V2 max: 72.7 cm/sec Ao max P.3 mmHg LV V1 max P.5 mmHg TR max domingo: 249.9 cm/sec TR max P.0 mmHg Interpretation Summary Normal LV size. Mild concentric left ventricular hypertrophy. Left ventricular systolic function is normal. The estimated ejection fraction is 60 %. The left atrium is moderately enlarged. Stage 2 diastolic dysfunction. Ordering Physician: Otoniel Jerez Referring Physician: Wanda Cortez Performed By: Chayo Davis RDCS, RVT
--- NOTE | 2019-09-03 11:28 | RAD_ITS ---
STUDY: X-RAY CHEST REASON FOR EXAM: Female, 74 years old. LINE PLACEMENT TECHNIQUE: AP upright portable view. COMPARISON: 09/02/2019. FINDINGS: Right PICC line catheter tip is in the right atrial chamber. Pulmonary hypoinflation with diffuse interstitial infiltrates in both lungs. There is no demonstrated pleural abnormality. Mild cardiomegaly is unchanged. Intact sternal wires from prior CABG procedure. Normal mediastinum and leyla. Normal visualized pulmonary arteries. Normal visualized aortic arch and descending thoracic aorta. Normal visualized thoracic spine. Normal visualized ribs, clavicles, and shoulders. There is no demonstrated abnormality of the visualized soft tissue structures of the upper abdomen. RAD/CXR for Line Placement IMPRESSION: 1. Right PICC line catheter tip is inside the right atrial chamber. 2. Interstitial pneumonitis in both lungs are unchanged. Electronically Signed: Oscar Medina MD at 13:10 EDT , Service support ,
--- NOTE | 2019-09-03 12:03 | PCM.PN.HOSP ---
Patient Problems: Active and Suspected Problems (Last Updated 08/11/19 @ 21:[address] Sukhdev Mulligan, DO) HCAP (healthcare-associated pneumonia) (Acute) Hypoxemia (Acute) Sepsis (Acute) Subjective: Patient seen and examined. She had no complaints this morning. She feels she was expectorating more with her cough now she was on antibiotics. Of note, patient had SVT yesterday. Heart rate went up to the 150s. Cardiology was consulted. Because she had a history of A. fib as well, patient was given a bolus of Cardizem and was started on Cardizem drip per cardiology. She converted to sinus rhythm overnight. She also developed a mild fever with temperature peaking at around 100 Fahrenheit. She is on 4 L of oxygen. BNP done yesterday was 1200 and IV fluids were stopped. She has been diuresed with IV Lasix. Troponins x3 were negative. Vitals/I&O's: Vital Signs Temp Pulse Resp BP Pulse Ox 99.5 F H 96 19 H 143/42 H 96 09/03/19 03:25 09/03/19 11:05 09/03/19 08:00 09/03/19 08:00 09/03/19 08:00 Oxygen Flow Rate (L/min) 4 Oxygen Delivery Method Nasal Cannula Weight: 167 lb 5.294 oz Body Mass Index (BMI) 26.9 Intake and Output for Last 24 Hours 09/01/19 09/02/19 09/03/19 23:59 23:59 23:59 Intake Total 1296.75 / 1301.75 146.5 / 146.5 Output Total 700 / 700 Balance 1296.75 / 1301.75 -553.5 / -553.5 General: Alert, Cooperative HEENT: Atraumatic, PERRLA, EOMI, Normocephalic Oral: Dry Mucosa Neck: Supple, No JVD Lungs: decreased breath sounds bibasally, with coarse crackles in mid and lower lung randolph bilaterally. on 4L of oxygen by nasal canula Cardiovascular: Regular rate, Regular Rhythm, Normal S1, Normal S2 Abdomen: Bowel Sounds Present, Soft, Non Tender Extremities: No clubbing, No cyanosis, No edema, Capillary Refill Less than 3 Seconds Skin: No rashes, No breakdown Musculoskeletal: No Tenderness to Palpation of Joints or Extremities Lymphatic: No Cervical, Supraclavicular, or Inguinal Adenopathy Neurological: Cranial nerves II-XII grossly intact, Neuro grossly intact, Motor Exam 5/5 strength throughout Psych/Mental Status: Anxious, Flat Affect Microbiology Past 72 Hours 09/02/19 10:58 Urine, Clean Catch Streptococcus pneumoniae Antigen (M - Final 09/02/19 10:58 Urine, Clean Catch Legionella Antigen - Final Laboratory Results 09/02/19 10:25: B-Natriuretic Peptide 1293.6 H 09/02/19 11:25: COVID-19 (JOSIE) Negative 09/02/19 16:32: POC Glucose 157 H 09/02/19 16:40: Lactic Acid Cancelled 09/02/19 18:00: Troponin I < 0.015 09/02/19 18:02: Lactic Acid 1.5 09/02/19 21:10: Troponin I < 0.015 09/02/19 21:35: POC Glucose 254 H 09/02/19 23:51: Troponin I < 0.015 09/03/19 06:10: WBC 10.1, RBC 2.97 L, Hgb 9.0 L, Hct 28.2 L, MCV 94.9, MCH 30.3, MCHC 31.9 L, RDW Std Deviation 46.9 H, RDW Coeff of Abbie 13.7, Plt Count 246, MPV 10.5, Immature Gran % (Auto) 0.400, Neut % (Auto) 75.6 H, Lymph % (Auto) 8.3 L, [place] % (Auto) 12.5 H, Eos % (Auto) 3.0, Baso % (Auto) 0.2, Absolute Neuts (auto) 7.7, Absolute Lymphs (auto) 0.84, Nucleated RBC % 0 09/03/19 06:10: PT 18.5 H, INR 1.6 09/03/19 06:10: Sodium 136, Potassium 4.4, Chloride 105, Carbon Dioxide 25.0, Anion Gap 6, BUN 35 H, Creatinine 1.36 H, Estim Creat Clear Calc 34.49, Est GFR (MDRD) Af Amer 49 L, Est GFR (MDRD) Non-Af 40 L, BUN/Creatinine Ratio 25.7 H, Glucose 173 H, Calcium 8.4 L 09/03/19 06:42: POC Glucose 165 H Current Medications Acetaminophen (Tylenol) 650 mg PO Q4H PRN PRN PRN Reason: .PAIN OR FEVER Al Hydroxide/Mg Hydroxide (Mylanta Ii) 30 ml PO Q4H PRN PRN PRN Reason: GI DISTRESS Amlodipine Besylate (Norvasc) 5 mg PO DAILY [facility] Last Admin: 09/03/19 08:50 Dose: 5 mg Documented by: Apixaban (Eliquis) 2.5 mg PO BID [facility] Aspirin (Ecotrin) 81 mg PO DAILYCM [facility] Last Admin: 09/03/19 08:44 Dose: 81 mg Documented by: Atorvastatin Calcium (Lipitor) 80 mg PO QHS [facility] Last Admin: 09/02/19 21:39 Dose: 80 mg Documented by: Bisacodyl (Dulcolax) 10 mg RECTAL DAILY PRN PRN PRN Reason: Constipation Carbidopa/Levodopa (Sinemet) 1 tablet PO TIDAC [facility] Last Admin: 09/03/19 06:44 Dose: 1 tablet Documented by: Dextrose (D50w Syringe) 0 gm IV X1 PRN; Protocol PRN Reason: Hypoglycemia Docusate Sodium (Colace) 200 mg PO BID [facility] Last Admin: 09/03/19 08:45 Dose: 200 mg Documented by: Fluoxetine HCl (Prozac) 10 mg PO DAILY [facility] Last Admin: 09/03/19 08:50 Dose: 10 mg Documented by: Furosemide (Lasix) 40 mg PO BID@1000,1800 [facility] Glucagon () 1 mg IM .X1 PRN PRN Reason: Hypoglycemia Guaifenesin (Robitussin) 10 ml PO Q4H PRN PRN PRN Reason: CONGESTION Sodium Chloride () 250 mls @ 15 mls/hr IV .[id number] PRN PRN Reason: Saline Flush Sodium Chloride () 250 mls @ 15 mls/hr IV .[id number] PRN PRN Reason: Additional IVPB Infusion Levofloxacin (Levaquin Iv) 750 mg in 150 mls @ 100 mls/hr IV Q48 [facility] Insulin Glargine (Lantus (Bk)) 12 units SC DAILY [facility] Last Admin: 09/03/19 08:46 Dose: 12 units Documented by: Insulin Human Lispro (Humalog Kwikpen ([facility])) 0 unit SC ACHS [facility]; Protocol Last Admin: 09/03/19 06:44 Dose: 2 units Documented by: Magnesium Hydroxide (Milk Of Magnesia) 30 ml PO DAILY PRN PRN PRN Reason: Constipation Melatonin (Melatonin) 3 mg PO QHS [facility] Last Admin: 09/02/19 21:38 Dose: 3 mg Documented by: Metoprolol Tartrate (Lopressor (Beta Carlos Enrique)) 50 mg PO BID [facility] Last Admin: 09/03/19 08:49 Dose: 50 mg Documented by: Multivit/Ca Carb/B Cmplx/FA/Prenat (Nephrocaps, Renaphro) 1 capsule PO DAILYCM [facility] Last Admin: 09/03/19 08:45 Dose: 1 capsule Documented by: Nitroglycerin (Nitrostat) 0.4 mg SUBLINGUAL Q5M PRN PRN Reason: CARDIAC/CHEST PAIN Nutritional Formula (Lactose Free) (Glucerna Shake) 120 ml PO TIDCM [facility] Last Admin: 09/03/19 08:44 Dose: 120 ml Documented by: Ondansetron HCl (Zofran) 4 mg IV Q8H PRN PRN PRN Reason: NAUSEA/VOMITING Pantoprazole Sodium (Protonix) 20 mg PO DAILY [facility] Last Admin: 09/03/19 08:50 Dose: 20 mg Documented by: Polyethylene Glycol (Miralax) 17 gm PO DAILY PRN PRN PRN Reason: Constipation Sodium Biphosphate/Sodium Phosphate (Fleet Enema) 1 bottle RECTAL X1 PRN PRN Reason: Constipation Sodium Chloride () 10 - 40 ml IV UD PRN PRN Reason: SALINE FLUSH Last Admin: 09/02/19 21:41 Dose: 20 ml Documented by: STROKE Vital Signs/Narrative: Vital Signs Pulse 09/03/19 11:05 96 09/03/19 11:03 89 09/03/19 08:49 54 L Medical Necessity - Tobacco Use Smoking Status: Former smoker Assessment/Plan All Active Problems (Last Updated 08/11/19 @ 21:[address] Sukhdev Mulligan DO) Unstable angina (Resolved) Pneumonia (Acute) Confusion (Acute) COVID-19 (Acute) Afib (Acute) HCAP (healthcare-associated pneumonia) (Acute) Hypoxemia (Acute) Sepsis (Acute) NSTEMI (non-ST elevated myocardial infarction) (Resolved 04/22/19) 74 y/o admitted with a complaint of shortness of breath 1. Sepsis due to community acquired pneumonia Developed a mild fever overnight. COVID test was negative. Currently on IV vanComycin and levofloxacin-has penicillin allergy. IV fluids discontinued on account of elevated BNP. Lactic acid trended down. Blood culture pending. Urine for strep and Legionella were negative. Continue breathing treatments with bronchodilators and titrate oxygen to maintain saturation above 90%. 2. Community-acquired pneumonia: As under 1. 3. Paroxysmal A. fib: Developed A. fib with RVR last night. Was on Cardizem drip. She has been weaned off of Cardizem drip heart rate is better controlled. Cardiology on board. Metoprolol increased to 50 mg twice daily. Cardiology, to consider adding on amiodarone if heart rate is not better controlled. Cardiology also recommends anticoagulation with newer oral anticoagulants. Will switch to Eliquis. On Coumadin. Will switch to Eliquis 2.5 mg twice daily. 4. Acute exacerbation of HFpEF EF is known to be around 35%. BNP was over 1200. Being diuresed with Lasix 40 mg twice daily. Fluid restrictions to thousand 500 cc daily. Monitor intake and output. for 2D echo tomorrow 5. Hypertension: On amlodipine. 6. Parkinson's disease and dementia: Stable. On levodopa carbidopa. 7. Type 2 diabetes mellitus: On Lantus 12 units daily. Insulin sliding scale. Accu-Cheks AC at bedtime. 8. CKD: Stable. 9. CAD: Status post CABG. on aspirin, statin and metoprolol. CODE STATUS: DNR [facility] Inpatient E&M: 75047 [facility] Hosp L3
[2019-09-03] MEDS: APIXABAN 2.5 MG TABLET PO ×2 (13:09→21:31)
--- NOTE | 2019-09-03 13:29 | RAD_ITS ---
STUDY: X-RAY CHEST REASON FOR EXAM: Female, 74 years old. LINE PLACEMENT AFTER ADJUSTMENT TECHNIQUE: Single AP portable view of the chest. COMPARISON: 11:51 AM. FINDINGS: Right PICC line terminates in the superior vena cava. No pleural effusion. No obvious pneumothorax. Hazy opacities in the lungs bilaterally, greater on the right. Normal size heart. Sternotomy wires are present. Normal mediastinum and leyla. Normal visualized pulmonary arteries. Atherosclerotic calcification of the aortic arch. Soft tissues and bony structures are unremarkable. RAD/CXR for Line Placement IMPRESSION: 1. Right PICC line terminates in the SVC. 2. Stable bilateral pulmonary opacities suspicious for pneumonia. Consider typical and atypical etiologies. Electronically Signed: Tessa Crawford MD at 15:01 EDT Tel , Service support ,
[2019-09-03 14:16] LABS: Bedside Glucose 204 mg/dL (70-110)
[2019-09-03] MEDS: Furosemide 40 MG Tablet PO (17:08)
[2019-09-03 17:16] LABS: Bedside Glucose 150 mg/dL (70-110)
[2019-09-03] MEDS: MELATONIN 3 MG TABLET PO (21:31)
[2019-09-03] MEDS: Atorvastatin Calcium 80 MG Tablet PO (21:32)
[2019-09-03 21:50] LABS: Bedside Glucose 283 mg/dL (70-110)
[2019-09-04] VITALS (13 sets, daily range): BP systolic 113–125; BP diastolic 55–69; PULSE 52–118; RESP 14–18; TEMP 36.2–36.8; O2SAT 92–98
[2019-09-04] MEDS: 0.9% Saline Lock 10 ML Syringe IV ×2 (03:40→09:35)
[2019-09-04 03:55] LABS: Absolute Lymphocyte Count 0.93 X10^3/uL (0.83-4.51); Absolute Neutrophil Count 8.8 X10^3/uL (2.0-7.7); Basophil# 0.01 X10^3/uL; Basophil% 0.1 % (0-1); Eosinophil# 0.64 X10^3/uL; Eosinophils% 5.6 % (0-5); Hematocrit 29.7 % (37-47); Hemoglobin 9.7 g/dL (12.0-15.0); Lymphocyte # 0.93 X10^3/ul (4.0); Lymphocyte % 8.1 % (19-41); Mean Corp Hgb Conc 32.7 g/dL (32-36); Mean Corpuscular Hgb 30.3 pg (27.0-32.0); Mean Corpuscular Volume 92.8 fL (81-99); Mean Platelet Vol. 10.2 fl (6.2-12.0); Monocyte# 1.03 X10^3/uL; NRBC Flagged by Analyzer 0 % (0-5); Neutrophil # 8.76 X10^3/uL (2.7-7.7); Neutrophil % 76.8 % (47-70); Platelet Count 254 K/mm3 (150-450); RBC Distribution Width CV 13.2 % (11.6-14.6); RBC Distribution Width SD 45.2 fl (35.1-43.9); White Blood Count 11.4 K/mm3 (4.4-11.0)
[2019-09-04 04:03] LABS: International Normalized Ratio 1.8; Prothrombin Time (Protime)PT. 20.4 SECONDS (11.7-14.9)
[2019-09-04 04:08] LABS: Anion Gap 9 (5-15); BUN 43 mg/dL (7-18); BUN/Creat Ratio 27.6 RATIO (10-20); Calcium,Total 8.8 mg/dL (8.5-10.1); Chloride 101 mmol/L (98-107); Creatinine, Serum 1.56 mg/dL (0.55-1.02); EST Glomerular Filtration Rate 35 mL/min (>60); Est Glom Filt Rate - Afr Amer 42 mL/min (>60); Estimated Creatinine Clearance 30.07 ml/min; Glucose 112 mg/dL (74-106); Potassium 4.2 mmol/L (3.5-5.1); Sodium Level 136 mmol/L (136-145)
[2019-09-04] MEDS: Carbidopa/Levodopa 25/100 Tablet PO ×3 (06:35→17:21)
[2019-09-04 06:40] LABS: Bedside Glucose 130 mg/dL (70-110)
--- NOTE | 2019-09-04 07:52 | PCM.PN.HOSP ---
Patient Problems: Active and Suspected Problems (Last Updated 08/11/19 @ 21:[address] Sukhdev Mulligan, DO) HCAP (healthcare-associated pneumonia) (Acute) Hypoxemia (Acute) Sepsis (Acute) Reason for Visit: Follow-up on pneumonia Subjective: Patient was seen and examined. No acute events. No fever, chills. Objective: Physical exam: General: Alert, Cooperative HEENT: Atraumatic, PERRLA, EOMI, Normocephalic Oral: Dry Mucosa Neck: Supple, No JVD Lungs: decreased breath sounds bibasally, with coarse crackles in mid and lower lung randolph bilaterally. on 4L of oxygen by nasal canula Cardiovascular: Regular rate, Regular Rhythm, Normal S1, Normal S2 Abdomen: Bowel Sounds Present, Soft, Non Tender Extremities: No clubbing, No cyanosis, No edema, Capillary Refill Less than 3 Seconds Skin: No rashes, No breakdown Musculoskeletal: No Tenderness to Palpation of Joints or Extremities Lymphatic: No Cervical, Supraclavicular, or Inguinal Adenopathy Neurological: Cranial nerves II-XII grossly intact, Neuro grossly intact, Motor Exam 5/5 strength throughout Psych/Mental Status: Anxious, Flat Affect Vitals/I&O's: Vital Signs Temp Pulse Resp BP Pulse Ox 98.3 F 92 18 113/65 94 09/04/19 03:35 09/04/19 07:15 09/04/19 03:35 09/04/19 03:35 09/04/19 03:45 Oxygen Flow Rate (L/min) 3 Oxygen Delivery Method Nasal Cannula Weight: 75.9 kg Body Mass Index (BMI) 26.9 Intake and Output for Last 24 Hours 09/02/19 09/03/19 09/04/19 23:59 23:59 23:59 Intake Total 1296.75 / 1301.75 1196.5 / 1196.5 Output Total 2170 / 2170 550 / 550 Balance 1296.75 / 1301.75 -973.5 / -973.5 -550 / -550 Microbiology Past 72 Hours 09/02/19 10:58 Urine, Clean Catch Streptococcus pneumoniae Antigen (M - Final 09/02/19 10:58 Urine, Clean Catch Legionella Antigen - Final Laboratory Results 09/03/19 13:00: POC Glucose 204 H 09/03/19 16:48: POC Glucose 150 H 09/03/19 21:28: POC Glucose 283 H 09/04/19 03:45: WBC 11.4 H, RBC 3.20 L, Hgb 9.7 L, Hct 29.7 L, MCV 92.8, MCH 30.3, MCHC 32.7, RDW Std Deviation 45.2 H, RDW Coeff of Abbie 13.2, Plt Count 254, MPV 10.2, Immature Gran % (Auto) 0.400, Neut % (Auto) 76.8 H, Lymph % (Auto) 8.1 L, [place] % (Auto) 9.0, Eos % (Auto) 5.6 H, Baso % (Auto) 0.1, Absolute Neuts (auto) 8.8 H, Absolute Lymphs (auto) 0.93, Nucleated RBC % 0 09/04/19 03:45: PT 20.4 H, INR 1.8 09/04/19 03:45: Sodium 136, Potassium 4.2, Chloride 101, Carbon Dioxide 26.0, Anion Gap 9, BUN 43 H, Creatinine 1.56 H, Estim Creat Clear Calc 30.07, Est GFR (MDRD) Af Amer 42 L, Est GFR (MDRD) Non-Af 35 L, BUN/Creatinine Ratio 27.6 H, Glucose 112 H, Calcium 8.8 09/04/19 06:33: POC Glucose 130 H Current Medications Acetaminophen (Tylenol) 650 mg PO Q4H PRN PRN PRN Reason: .PAIN OR FEVER Al Hydroxide/Mg Hydroxide (Mylanta Ii) 30 ml PO Q4H PRN PRN PRN Reason: GI DISTRESS Amlodipine Besylate (Norvasc) 5 mg PO DAILY [facility] Last Admin: 09/03/19 08:50 Dose: 5 mg Documented by: Apixaban (Eliquis) 2.5 mg PO BID [facility] Last Admin: 09/03/19 21:31 Dose: 2.5 mg Documented by: [facility]) [facility] Last Admin: 09/03/19 08:44 Dose: 81 mg Documented by: Atorvastatin Calcium (Lipitor) 80 mg PO QHS [facility] Last Admin: 09/03/19 21:32 Dose: 80 mg Documented by: Bisacodyl (Dulcolax) 10 mg RECTAL DAILY PRN PRN PRN Reason: Constipation Carbidopa/Levodopa (Sinemet) 1 tablet PO TIDAC [facility] Last Admin: 09/04/19 06:35 Dose: 1 tablet Documented by: Dextrose (D50w Syringe) 0 gm IV X1 PRN; Protocol PRN Reason: Hypoglycemia Docusate Sodium (Colace) 200 mg PO BID [facility] Last Admin: 09/03/19 21:42 Dose: Not Given Documented by: Fluoxetine HCl (Prozac) 10 mg PO DAILY [facility] Last Admin: 09/03/19 08:50 Dose: 10 mg Documented by: Furosemide (Lasix) 40 mg PO BID@1000,1800 [facility] Last Admin: 09/03/19 17:08 Dose: 40 mg Documented by: Glucagon () 1 mg IM .X1 PRN PRN Reason: Hypoglycemia Guaifenesin (Robitussin) 10 ml PO Q4H PRN PRN PRN Reason: CONGESTION Sodium Chloride () 250 mls @ 15 mls/hr IV .[id number] PRN PRN Reason: Saline Flush Sodium Chloride () 250 mls @ 15 mls/hr IV .[id number] PRN PRN Reason: Additional IVPB Infusion Levofloxacin (Levaquin Iv) 750 mg in 150 mls @ 100 mls/hr IV Q48 [facility] Insulin Glargine (Lantus (Bkc)) 12 units SC DAILY [facility] Last Admin: 09/03/19 08:46 Dose: 12 units Documented by: Insulin Human Lispro (Humalog Kwikpen (Bkc)) 0 unit SC ACHS [facility]; Protocol Last Admin: 09/04/19 06:35 Dose: Not Given Documented by: Magnesium Hydroxide (Milk Of Magnesia) 30 ml PO DAILY PRN PRN PRN Reason: Constipation Melatonin (Melatonin) 3 mg PO QHS [facility] Last Admin: 09/03/19 21:31 Dose: 3 mg Documented by: Metoprolol Tartrate (Lopressor (Beta Carlos Enrique)) 50 mg PO BID [facility] Last Admin: 09/03/19 21:32 Dose: 50 mg Documented by: Multivit/Ca Carb/B Cmplx/FA/Prenat (Nephrocaps, Renaphro) 1 capsule PO DAILYCM [facility] Last Admin: 09/03/19 08:45 Dose: 1 capsule Documented by: Nitroglycerin (Nitrostat) 0.4 mg SUBLINGUAL Q5M PRN PRN Reason: CARDIAC/CHEST PAIN Nutritional Formula (Lactose Free) (Glucerna Shake) 120 ml PO TIDCM [facility] Last Admin: 09/03/19 17:04 Dose: 120 ml Documented by: Ondansetron HCl (Zofran) 4 mg IV Q8H PRN PRN PRN Reason: NAUSEA/VOMITING Pantoprazole Sodium (Protonix) 20 mg PO DAILY [facility] Last Admin: 09/03/19 08:50 Dose: 20 mg Documented by: Polyethylene Glycol (Miralax) 17 gm PO DAILY PRN PRN PRN Reason: Constipation Sodium Biphosphate/Sodium Phosphate (Fleet Enema) 1 bottle RECTAL X1 PRN PRN Reason: Constipation Sodium Chloride () 10 - 40 ml IV UD PRN PRN Reason: SALINE FLUSH Last Admin: 09/04/19 03:40 Dose: 30 ml Documented by: STROKE Vital Signs/Narrative: Vital Signs Pulse 09/04/19 07:15 92 Medical Necessity - Tobacco Use Smoking Status: Former smoker Assessment/Plan All Active Problems (Last Updated 08/11/19 @ 21:[address] Sukhdev Mulligan, DO) Unstable angina (Resolved) Pneumonia (Acute) Confusion (Acute) COVID-19 (Acute) Afib (Acute) HCAP (healthcare-associated pneumonia) (Acute) Hypoxemia (Acute) Sepsis (Acute) NSTEMI (non-ST elevated myocardial infarction) (Resolved 04/22/19) 1. Sepsis secondary to pneumonia, improved Continue on Levaquin IV 2. Acute on chronic systolic CHF, EF 50%, by Left ventriculogram, improved 2d-echo is pending, continue on oral lasix, strict I & Os, daily weights 3. Hypertension, controlled Continue on amlodipine, metoprolol 4. Type 2 DM, BS controlled, continue on Lantus, ISS 5. Paroxysmal A. fib, rate controlled, on metoprolol and Eliquis 6. Parkinson's disease/dementia, on Fluoxetine, Sinemet 7. CKD stage 3, stable, will trend Cr 8. DVT PPx - on apixaban Inpatient E&M: 98499 Subs Hosp L2
[2019-09-04] MEDS: Docusate Sodium 100 MG Capsule 200 MG PO ×2 (09:25→20:56)
[2019-09-04] MEDS: Furosemide 40 MG Tablet PO ×2 (09:25→17:21)
[2019-09-04] MEDS: Aspirin E.C. 81 MG Tablet PO (09:26)
[2019-09-04] MEDS: FLUoxetine 10 MG Capsule PO (09:26)
[2019-09-04] MEDS: amLODIPine 5 MG Tablet PO (09:26)
[2019-09-04] MEDS: APIXABAN 2.5 MG TABLET PO ×2 (09:26→20:56)
[2019-09-04] MEDS: Pantoprazole Sodium 20 MG Tablet PO (09:26)
[2019-09-04] MEDS: Metoprolol Tartrate 50 MG Tablet PO ×2 (09:27→20:55)
[2019-09-04] MEDS: Folic Acid/Vitamin B Comp W-C 1 Capsule 1 CAP PO (09:27)
[2019-09-04] MEDS: Glucerna Shake 120 ML LIQUID PO ×2 (09:35→17:21)
[2019-09-04] MEDS: levoFLOXacin IV 750 MG/150 ML BAG 100 MG IV (09:35)
[2019-09-04 09:56] LABS: Bedside Glucose 149 mg/dL (70-110)
--- NOTE | 2019-09-04 10:31 | CASEMGMT ---
VERNA faxed updates to [facility]. Patient does not need a pre-cert to return to [facility]. Tonja BETTS MSW
[2019-09-04] MEDS: Insulin Lispro 100 UNIT/ML INSULN.PEN SC ×2 (12:47→20:57)
--- NOTE | 2019-09-04 12:52 | CASEMGMT ---
Readmissin chart review: Pt was initially admitted from [facility] on 08/10-08/12/2019 for pneumonia and discharged back to [facility] at that time. Pt returned to [facility] for Sepsis, CAP on 09/02/2019. Plan is for pt to return to [facility] at discharge. [facility] for return to SNF and for any further discharge planning/needs. Pt has been negative for COVID during both admissions. SStaten BRIAN CM
[2019-09-04 12:56] LABS: Bedside Glucose 311 mg/dL (70-110)
[2019-09-04 17:21] LABS: Bedside Glucose 142 mg/dL (70-110)
[2019-09-04] MEDS: MELATONIN 3 MG TABLET PO (20:56)
[2019-09-04] MEDS: Atorvastatin Calcium 80 MG Tablet PO (20:57)
[2019-09-04 21:35] LABS: Bedside Glucose 229 mg/dL (70-110)
[2019-09-05] VITALS (9 sets, daily range): BP systolic 130–155; BP diastolic 57–75; PULSE 54–59; RESP 16–18; TEMP 36.2–36.8; O2SAT 93–95
[2019-09-05 05:01] LABS: Absolute Lymphocyte Count 0.87 X10^3/uL (0.83-4.51); Eosinophil# 0.62 X10^3/uL; Eosinophils% 8.5 % (0-5); Hematocrit 27.2 % (37-47); Hemoglobin 8.7 g/dL (12.0-15.0); Lymphocyte # 0.87 X10^3/ul (4.0); Lymphocyte % 11.9 % (19-41); Mean Corpuscular Hgb 30.4 pg (27.0-32.0); Mean Corpuscular Volume 95.1 fL (81-99); Mean Platelet Vol. 10.2 fl (6.2-12.0); Monocyte# 0.81 X10^3/uL; Monocyte% 11.1 % (0-10); NRBC Flagged by Analyzer 0 % (0-5); Neutrophil # 4.99 X10^3/uL (2.7-7.7); Neutrophil % 68.1 % (47-70); Platelet Count 276 K/mm3 (150-450); RBC Distribution Width CV 13.4 % (11.6-14.6); RBC Distribution Width SD 46.7 fl (35.1-43.9); Red Blood Count 2.86 M/mm3 (4.2-5.4); White Blood Count 7.3 K/mm3 (4.4-11.0)
[2019-09-05 05:18] LABS: ALB/GLOB Ratio 0.4 RATIO (0.9-2.4); AST(SGOT) 25 U/L (15-37); Alanine Aminotransfer ALT/SGPT 14 U/L (13-56); Alkaline Phosphatase 124 U/L (45-117); Anion Gap 7 (5-15); BUN 59 mg/dL (7-18); BUN/Creat Ratio 29.9 RATIO (10-20); Calcium,Total 8.3 mg/dL (8.5-10.1); Chloride 101 mmol/L (98-107); Creatinine, Serum 1.97 mg/dL (0.55-1.02); EST Glomerular Filtration Rate 26 mL/min (>60); Est Glom Filt Rate - Afr Amer 32 mL/min (>60); Estimated Creatinine Clearance 23.81 ml/min; Globulin 4.5 g/dL (2.2-4.2); Glucose 206 mg/dL (74-106); Potassium 4.5 mmol/L (3.5-5.1); Protein, Total 6.5 g/dL (6.4-8.2); Sodium Level 136 mmol/L (136-145)
[2019-09-05] MEDS: 0.9% Saline Lock 10 ML Syringe IV (06:11)
[2019-09-05] MEDS: Carbidopa/Levodopa 25/100 Tablet PO ×2 (06:11→10:47)
[2019-09-05] MEDS: Insulin Lispro 100 UNIT/ML INSULN.PEN SC ×2 (06:26→10:46)
[2019-09-05 06:40] LABS: Bedside Glucose 229 mg/dL (70-110)
--- NOTE | 2019-09-05 07:54 | PN.CARD_ITS ---
Subjectve: Patient seen and evaluated. Appears to be stable. No obvious complaints maintaining sinus rhythm Objective: Vital Signs Temp Pulse Resp BP Pulse Ox 98.2 F 56 L 16 130/57 H 94 09/05/19 02:35 09/05/19 06:57 09/05/19 02:35 09/05/19 02:35 09/05/19 07:30 Oxygen Flow Rate (L/min) 2 Oxygen Delivery Method Nasal Cannula Weight: 167 lb 5.294 oz Body Mass Index (BMI) 26.9 Intake and Output for Last 24 Hours 09/03/19 09/04/19 09/05/19 23:59 23:59 23:59 Intake Total 1196.5 / 1196.5 1090 / 1090 120 / 120 Output Total 2170 / 2170 950 / 950 150 / 150 Balance -973.5 / -973.5 140 / 140 -30 / -30 General: Awake, Alert, Oriented x 3 HEENT: PERRL, EOMI, Sclera Non Icteric Neck: Supple, Good ROM, No Lymph Node Enlargement Lungs: Clear to auscultation Cardiovascular: Regular Rhythm, Normal S1, Normal S2, No Murmurs, No Rubs, No Gallops Vascular: No Carotid Bruits, Normal Femoral Pulses, Normal Radial Pulses, Normal Dorsalis Pedal Pulse, Normal Posterior Tibial Pulses Abdomen: Bowel Sounds Present, Soft, Non Tender, No HSM, No Organomegaly Extremities: No Cyanosis, No Clubbing, No edema Musculoskeletal: No Erythema Skin: No Rashes Neurological: No Focal Motor or Sensory Deficit 09/05/19 04:54: WBC 7.3, RBC 2.86 L, Hgb 8.7 L, Hct 27.2 L, MCV 95.1, MCH 30.4, MCHC 32.0, Plt Count 276, MPV 10.2, Immature Gran % (Auto) 0.400, Neut % (Auto) 68.1, Lymph % (Auto) 11.9 L, [place] % (Auto) 11.1 H, Eos % (Auto) 8.5 H, Baso % (Auto) 0.0, Absolute Neuts (auto) 5.0, Nucleated RBC % 0 09/05/19 04:54: Sodium 136, Potassium 4.5, Chloride 101, Carbon Dioxide 28.0, Anion Gap 7, BUN 59 H, Creatinine 1.97 H, Est GFR (MDRD) Af Amer 32 L, Est GFR (MDRD) Non-Af 26 L, BUN/Creatinine Ratio 29.9 H, Glucose 206 H, Calcium 8.3 L, Total Bilirubin 0.30 Rhythm: EKG: ECHO: Stress Test: Cardiac Cath: PCI: CT Surgery: Holter monitor: EPS: PPM: CXR: Chest CT Scan: Medical Necessity - Tobacco Use Smoking Status: Former smoker Assessment/Plan 1. Paroxysmal atrial fibrillation * Patient presents with shortness of breath and developed paroxysmal atrial fibrillation with a rapid ventricular response rate and EKG changes she spontaneously converted to sinus rhythm with intravenous Cardizem. * Recommendation will be to increase her beta-yoanna to metoprolol 50 mg twice a day * Consider the addition of amiodarone 200 mg a day * Will suggest anticoagulation with factor Xa inhibitor * 2. Coronary artery disease * Patient is status post coronary artery bypass surgery * It appears the surgery involved a SANFORD to the LAD, a saphenous vein graft to the posterior descending artery, a saphenous vein graft to the ramus intermedius, and a vein graft which was a T graft of the saphenous vein graft to the second diagonal. * Would continue with risk factor modification and encourage follow-up in the primary supervisor harvesting office. * Cardiac enzymes thus far remain negative and I do not think that this is an acute ischemic event. 3. Hypertension * Good control continue current medical therapy * 4. Shortness of breath * I suspect the above is secondary to diastolic heart failure from the atrial fibrillation. Her chest x-ray is suggestive of failure and she appears to have improved with the diuretics. * Echocardiogram demonstrated preserved ejection fraction estimated EF 60 to 65% with stage I diastolic dysfunction. * Will continue oral diuretics * * Further recommendations to be made based on the results of the above. * For follow-up should be made with Dr. Prescott. * Thank you for allowing me to participate in the care of your patient. Please don't hesitate to call if any issues arise.
[2019-09-05] MEDS: Aspirin E.C. 81 MG Tablet PO (08:44)
[2019-09-05] MEDS: Folic Acid/Vitamin B Comp W-C 1 Capsule 1 CAP PO (08:44)
[2019-09-05] MEDS: amLODIPine 5 MG Tablet PO (08:44)
[2019-09-05] MEDS: Docusate Sodium 100 MG Capsule 200 MG PO (08:44)
[2019-09-05] MEDS: APIXABAN 2.5 MG TABLET PO (08:45)
[2019-09-05] MEDS: Metoprolol Tartrate 50 MG Tablet PO (08:46)
[2019-09-05] MEDS: FLUoxetine 10 MG Capsule PO (08:46)
[2019-09-05] MEDS: Glucerna Shake 120 ML LIQUID PO (08:48)
[2019-09-05] MEDS: Pantoprazole Sodium 40 MG Tablet PO (08:52)
[2019-09-05] MEDS: Furosemide 20 MG Tablet PO (08:52)
[2019-09-05 09:06] LABS: Platelet Count 280 K/mm3 (150-450); RET-HE 26.6 pg (30-35); Reticulocyte Count 1.91 % (0.5-1.5)
[2019-09-05 09:07] LABS: Iron 37 ug/dL (50-170); Iron Binding Capacity,Total 137 ug/dL (250-450)
--- NOTE | 2019-09-05 10:30 | PCM.TXEXTCAR ---
- Diet 09/02/19 14:48 Diet: Cardiac: Calorie-Controlled Food consistency:: Regular Liquid Consistency:: Regular/Thin How many daily calories?: 1800 calorie - Routine Orders/Code Status O2 Liters per Minute: 2 O2 Frequency: Continuous Keep PO Greater than or Equal to (%): 94 - Encourage use of incentive spirometer Routine Lab Work: CBC - within 3 days, BMP - within 3 days Code Status: DNRCC-A - Wound(s) mid lt siu Wound Type: Abrasion - Therapies Weight Bearing: Weight bearing as tolerated Physical Therapy: Eval and Treat Occupational Therapy: Eval and Treat - Allergies/Procedures Done in Hospital Allergies/Adverse Reactions: Allergies amantadine Allergy (Verified 09/02/19 09:46) PT UNABLE TO RESPOND-NEEDS F/U famotidine Allergy (Verified 09/02/19 09:46) Other nitrofurantoin [From Macrobid] Allergy (Verified 09/02/19 09:46) PT UNABLE TO RESPOND-NEEDS F/U Penicillins [PCN] Allergy (Verified 09/02/19 09:46) PT UNABLE TO RESPOND-NEEDS F/U povidone-iodine Allergy (Verified 09/02/19 09:46) PT UNABLE TO RESPOND-NEEDS F/U shellfish derived Allergy (Verified 09/02/19 09:46) Anaphylaxis Sulfa (Sulfonamide Antibiotics) Allergy (Verified 09/02/19 09:46) PT UNABLE TO RESPOND-NEEDS F/U Procedures: 2-D Echocardiogram - Type of Care/Length of Stay Estimated LOS: Convalescent Care Less Than 30 days Type of Care Needed: Skilled Rehab Potential: Good Prognosis: Good - Additional Orders/Day of Discharge Additional Orders: Encourage use of incentive spirometer. Need to repeat kidney function test within 3 days. Day of Discharge: 09/05/19 - Follow Up Care Primary Care Physician: Wanda Cortez MD [Primary Care Provider] - Please follow up with your Primary Care Physician in: within 1-2 weeks Please Follow Up With: Bee Prescott MD When: within 2-4 weeks
[2019-09-05] MEDS: Ferrous Sulfate 325 MG Tablet PO (10:47)
--- NOTE | 2019-09-05 10:55 | CASEMGMT ---
Addendum entered by Tonja Hirsch 09/05/19 11:32: SW tried to call patient's contact, [place], again with the same result. Tonja DOZIER Original Note: Patient is ready for discharge back to [facility]. VERNA faxed orders to [facility]. VERNA called [facility] and arranged for patient to get picked up at 1p via cot. VERNA notified RN, special education secretary, and Herminia at [facility]. VERNA attempted to call patient's electronic news gathering camera person however their voice mail was not set up. VERNA will try again later. Plan: d/c back to [facility] under intermediate level of care. [facility] transported via cot. Tonja DOZIER
[2019-09-05 11:01] LABS: Bedside Glucose 235 mg/dL (70-110)
--- NOTE | 2019-09-05 11:14 | NURSING ---
Picc dc'd tip intact. Pressure held for 5 minutes, vaseline guaze, 2x2 and secured with tegaderm.
--- NOTE | 2019-09-05 11:31 | DS.PCM_ITS ---
Discharge Date and Diagnosis Date of Admission: 09/02/19 Date of Discharge: 09/05/19 - Primary Discharge Diagnosis Acute Problems: Active Problems (Last Updated 08/11/19 @ 21:[address] Sukhdev Mulligan DO) Severe sepsis Pneumonia Acute on chronic systolic CHF CKD stage 3, stable, unclear etiology, likely secondary to Type 2 DM and hypertension - Secondary Discharge Diagnosis Chronic Problems: Chronic Problems (Last Updated 08/11/19 @ 21:[address] Sukhdev Mulligan DO) Parkinson disease (Chronic) CAD (coronary artery disease) (Chronic) DM2 (diabetes mellitus, type 2) (Chronic) Atherosclerotic heart disease [place] coronary artery w/angina pectoris (Chronic) Essential (primary) hypertension (Chronic) Nicotine dependence (Chronic) Hospital Course and Treatment Imaging Results: Clinical Impression(s) from Imaging Studies Chest X-Ray 09/02/19 10:33 IMPRESSION: Prominent interstitial markings and likely early patchy airspace disease throughout the bilateral lung parenchyma with underlying infiltrates not excluded. Electronically Signed: Romeo Cevallos DO at 10:59 EDT , Service support , Chest X-Ray 09/03/19 11:28 IMPRESSION: 1. Right PICC line catheter tip is inside the right atrial chamber. 2. Interstitial pneumonitis in both lungs are unchanged. Electronically Signed: Oscar Medina MD at 13:10 EDT , Service support , Chest X-Ray 09/03/19 13:29 IMPRESSION: 1. Right PICC line terminates in the SVC. 2. Stable bilateral pulmonary opacities suspicious for pneumonia. Consider typical and atypical etiologies. Electronically Signed: Tessa Crawford MD at 15:01 EDT Tel , Service support , Cardiology Operations: None Procedures: 2-D Echocardiogram Summary of Care Provided: The patient is a 74 year old F past medical history of hypertension, type II DM, CAD, Parkinson's disease who presented with cough and shortness of breath. Petey ortiz is a long term resident and has had a cough for 1 week. She has history of COVID-19 diagnosed in June 2019. She subsequently has been negative. Patient was found to be hypoxic in the long term and was requiring 4 L of oxygen. Work-up in the emergency department showed tachypnea, leucocytosis and tach acid was 2.5. Patient was managed as severe sepsis from admission. She was started on IV antibiotics. Repeat lactic acid was 1.5. Patient was also found to have vital tachycardia and was found to be in A. fib with RVR. She was started on IV Cardizem and converted overnight to normal sinus rhythm. She was seen by cardiology and started on metoprolol with Eliquis. Echo shows EF of 60%, stage 2 diastolic dysfunction. Started on oral Lasix. Her Lasix at discharge was switched to 20 mg daily at discharge. Patient continued to improve and was discharged to complete 1 week of Levaquin. She was encouraged to use incentive spirometer in a long term. She was on 2 L of oxygen at time of discharge. Patient was also started on oral iron for microcytic anemia, of mixed pattern. Her blood counts and kidney function needs to be monitored closely. Subjective: On the day of discharge, patient was seen and examined. Denied any new complaints. Denies fever or chills. Objective: Physical exam: General: Alert, Cooperative HEENT: Atraumatic, PERRLA, EOMI, Normocephalic Oral: Dry Mucosa Neck: Supple, No JVD Lungs: decreased breath sounds bibasally, with coarse crackles in mid and lower lung randolph bilaterally. on 4L of oxygen by nasal canula Cardiovascular: Regular rate, Regular Rhythm, Normal S1, Normal S2 Abdomen: Bowel Sounds Present, Soft, Non Tender Extremities: No clubbing, No cyanosis, No edema, Capillary Refill Less than 3 Seconds Skin: No rashes, No breakdown Musculoskeletal: No Tenderness to Palpation of Joints or Extremities Lymphatic: No Cervical, Supraclavicular, or Inguinal Adenopathy Neurological: Cranial nerves II-XII grossly intact, Neuro grossly intact, Motor Exam 5/5 strength throughout Psych/Mental Status: Anxious, Flat Affect - Physical Exam Vitals/I&O's: Vital Signs Temp Pulse Resp BP Pulse Ox 97.4 F L 54 L 18 155/75 H 95 09/05/19 11:22 09/05/19 11:22 09/05/19 11:22 09/05/19 11:22 09/05/19 11:22 Oxygen Flow Rate (L/min) 2 Oxygen Delivery Method Room Air Weight: 75.9 kg Body Mass Index (BMI) 26.9 Intake and Output for Last 24 Hours 09/03/19 09/04/19 09/05/19 23:59 23:59 23:59 Intake Total 1196.5 / 1196.5 1090 / 1090 120 / 120 Output Total 2170 / 2170 950 / 950 150 / 150 Balance -973.5 / -973.5 140 / 140 -30 / -30 Microbiology Past 72 Hours 09/02/19 11:00 Blood Culture (Wb) - Neck Blood Culture - Preliminary No growth in 48 hours. 09/02/19 10:25 Blood Culture (Wb) - Neck Blood Culture - Preliminary No growth in 48 hours. 09/02/19 10:58 Urine, Clean Catch Streptococcus pneumoniae Antigen (M - Final 09/02/19 10:58 Urine, Clean Catch Legionella Antigen - Final Laboratory Results 09/04/19 12:41: POC Glucose 311 H 09/04/19 17:16: POC Glucose 142 H 09/04/19 20:54: POC Glucose 229 H 09/05/19 04:54: WBC 7.3, RBC 2.86 L, Hgb 8.7 L, Hct 27.2 L, MCV 95.1, MCH 30.4, MCHC 32.0, RDW Std Deviation 46.7 H, RDW Coeff of Abbie 13.4, Plt Count 276, MPV 10.2, Immature Gran % (Auto) 0.400, Neut % (Auto) 68.1, Lymph % (Auto) 11.9 L, Davidson % (Auto) 11.1 H, Eos % (Auto) 8.5 H, Baso % (Auto) 0.0, Absolute Neuts (auto) 5.0, Absolute Lymphs (auto) 0.87, Nucleated RBC % 0 09/05/19 04:54: Sodium 136, Potassium 4.5, Chloride 101, Carbon Dioxide 28.0, Anion Gap 7, BUN 59 H, Creatinine 1.97 H, Estim Creat Clear Calc 23.81, Est GFR (MDRD) Af Amer 32 L, Est GFR (MDRD) Non-Af 26 L, BUN/Creatinine Ratio 29.9 H, Glucose 206 H, Calcium 8.3 L, Total Bilirubin 0.30, AST 25, ALT 14, Alkaline Phosphatase 124 H, Total Protein 6.5, Albumin 2.0 L, Globulin 4.5 H, Albumin/Globulin Ratio 0.4 L 09/05/19 04:54: Retic Count 1.91 H, Immature Retic Fraction 17.10 H, Retic Hgb Equivalent 26.6 L 09/05/19 04:54: Iron 37 L, TIBC 137 L, Iron Saturation 27.0 09/05/19 06:25: POC Glucose 229 H 09/05/19 10:44: POC Glucose 235 H Current Medications Acetaminophen (Tylenol) 650 mg PO Q4H PRN PRN PRN Reason: .PAIN OR FEVER Al Hydroxide/Mg Hydroxide (Mylanta Ii) 30 ml PO Q4H PRN PRN PRN Reason: GI DISTRESS Amlodipine Besylate (Norvasc) 5 mg PO DAILY [facility] Last Admin: 09/05/19 08:44 Dose: 5 mg Documented by: Apixaban (Eliquis) 2.5 mg PO BID [facility] Last Admin: 09/05/19 08:45 Dose: 2.5 mg Documented by: Atorvastatin Calcium (Lipitor) 80 mg PO QHS [facility] Last Admin: 09/04/19 20:57 Dose: 80 mg Documented by: Bisacodyl (Dulcolax) 10 mg RECTAL DAILY PRN PRN PRN Reason: Constipation Carbidopa/Levodopa (Sinemet) 1 tablet PO TIDAC [facility] Last Admin: 09/05/19 10:47 Dose: 1 tablet Documented by: Dextrose (D50w Syringe) 0 gm IV X1 PRN; Protocol PRN Reason: Hypoglycemia Docusate Sodium (Colace) 200 mg PO BID [facility] Last Admin: 09/05/19 08:44 Dose: 200 mg Documented by: Ferrous Sulfate (Ferrous Sulfate) 325 mg PO 1200,1700 [facility] Last Admin: 09/05/19 10:47 Dose: 325 mg Documented by: Fluoxetine HCl (Prozac) 10 mg PO DAILY [facility] Last Admin: 09/05/19 08:46 Dose: 10 mg Documented by: Furosemide (Lasix) 20 mg PO DAILY [facility] Last Admin: 09/05/19 08:52 Dose: 20 mg Documented by: Glucagon () 1 mg IM .X1 PRN PRN Reason: Hypoglycemia Guaifenesin (Robitussin) 10 ml PO Q4H PRN PRN PRN Reason: CONGESTION Sodium Chloride () 250 mls @ 15 mls/hr IV .[id number] PRN PRN Reason: Saline Flush Sodium Chloride () 250 mls @ 15 mls/hr IV .[id number] PRN PRN Reason: Additional IVPB Infusion Levofloxacin (Levaquin Iv) 750 mg in 150 mls @ 100 mls/hr IV Q48 [facility] Last Infusion: 09/04/19 14:37 Dose: Infused Documented by: Insulin Glargine (Lantus ([facility])) 12 units SC DAILY [facility] Last Admin: 09/05/19 10:45 Dose: 12 units Documented by: Insulin Human Lispro (Humalog Kwikpen ([facility])) 0 unit SC ACHS [facility]; Protocol Last Admin: 09/05/19 10:46 Dose: 4 units Documented by: Magnesium Hydroxide (Milk Of Magnesia) 30 ml PO DAILY PRN PRN PRN Reason: Constipation Melatonin (Melatonin) 3 mg PO QHS [facility] Last Admin: 09/04/19 20:56 Dose: 3 mg Documented by: Metoprolol Tartrate (Lopressor (Beta Carlos Enrique)) 50 mg PO BID [facility] Last Admin: 09/05/19 08:46 Dose: 50 mg Documented by: Multivit/Ca Carb/B Cmplx/FA/Prenat (Nephrocaps, Renaphro) 1 capsule PO DAILYCM [facility] Last Admin: 09/05/19 08:44 Dose: 1 capsule Documented by: Nitroglycerin (Nitrostat) 0.4 mg SUBLINGUAL Q5M PRN PRN Reason: CARDIAC/CHEST PAIN Nutritional Formula (Lactose Free) (Glucerna Shake) 120 ml PO TIDCM [facility] Last Admin: 09/05/19 10:47 Dose: Not Given Documented by: Ondansetron HCl (Zofran) 4 mg IV Q8H PRN PRN PRN Reason: NAUSEA/VOMITING Pantoprazole Sodium (Protonix) 40 mg PO BID [facility] Last Admin: 09/05/19 08:52 Dose: 40 mg Documented by: Polyethylene Glycol (Miralax) 17 gm PO DAILY PRN PRN PRN Reason: Constipation Sodium Biphosphate/Sodium Phosphate (Fleet Enema) 1 bottle RECTAL X1 PRN PRN Reason: Constipation Sodium Chloride () 10 - 40 ml IV UD PRN PRN Reason: SALINE FLUSH Last Admin: 09/05/19 06:11 Dose: 30 ml Documented by: Discharge Diet: Low fat/ Low Cholesterol, 2000 mg Sodium Diet, Carb Control Diet Discharge Activity: Return to Normal Activity Home Medications: Medications to take at Discharge Atorvastatin Calcium 80 mg PO QHS 04/22/19 Acetaminophen 650 mg PO Q4H PRN PRN 08/11/19 Bisacodyl 10 mg RC DAILY PRN PRN 08/11/19 Dextrose [Glucose Gel] 1 dose PO X1 PRN 08/11/19 Docusate Sodium [Colace] 200 mg PO BID 08/11/19 Fluoxetine [Prozac] 10 mg PO DAILY 08/11/19 Folic Acid/Vitamin B Comp W-C [Nephrocaps, Renaphro] 1 cap PO DAILY 08/11/19 Glucagon,Human Recombinant [Glucagon Emergency Kit] 1 mg IJ X1 PRN 08/11/19 Glycerin 1 ea FL X1 PRN 08/11/19 Guaifenesin [Robitussin] 10 ml PO Q4H PRN PRN 08/11/19 Insulin Detemir [Levemir] 12 unit SQ DAILY 08/11/19 Insulin Lispro 12 unit SQ BID 08/11/19 Mag Hydrox/Aluminum Hyd/Simeth [Antacid Suspension] 30 ml PO Q4H PRN PRN 08/11/19 Magnesium Hydroxide [Milk Of Magnesia] 30 ml PO DAILY PRN PRN 08/11/19 Melatonin 3 mg PO QHS 08/11/19 Na Phos,M-B/Na Phos,Di-Ba [Fleet Enema] 120 ml RECTAL X1 PRN 08/11/19 Acetaminophen 650 mg FL Q4H PRN PRN 09/02/19 Amlodipine [Norvasc] 5 mg PO DAILY 09/02/19 Carbidopa/Levodopa 25/100 [Sinemet 25/100] 1 tab PO TIDAC 09/02/19 Furosemide [Lasix] 20 mg PO DAILY 09/02/19 Polyethylene Glycol 3350 [Miralax] 17 gm PO DAILY PRN PRN 09/02/19 Apixaban [Eliquis] 2.5 mg PO BID tab 09/05/19 Ferrous Sulfate 325 mg PO 1200,1700 tab 09/05/19 Glucerna Shake 120 ml PO TIDCM liquid 09/05/19 Metoprolol Tartrate [Lopressor (beta carlos enrique)] 50 mg PO BID tab 09/05/19 Pantoprazole Sodium [Protonix] 40 mg PO BID tab 09/05/19 levoFLOXacin tablet [Levaquin tablet] 750 mg PO DAILY 4 Days #4 tab 09/05/19 Following Prescrptions Were Given to Patient: levoFLOXacin tablet [Levaquin tablet] 750 mg PO DAILY 4 Days #4 tab Primary Care Physician: Wanda Cortez MD [Primary Care Provider] - Please follow up with your Primary Care Physician in: within 1-2 weeks Please Follow Up With: Bee Prescott MD When: within 2-4 weeks Disposition: [facility] facility Minutes spent on discharge:: 45 Patient Condition:: Stable Medical Necessity - Tobacco Use Smoking Status: Former smoker Tobacco Use: Non-smoker Meaningful Use Info Meaningful Use Diagnoses (Choose all that apply): None applicable Inpatient E&M: [id number] [facility]
--- NOTE | 2019-09-05 12:19 | NURSING ---
Report called to Lesley at [facility]
--- NOTE | 2019-09-05 13:43 | CASEMGMT ---
VERNA did get a hold of patient's change person and let her know patient was discharged back to [facility] today. She thanked VERNA for the update. Tonja BETTS MSW
== END 2019-09-05 13:36 | disposition skilled nursing facility (03) | DRG 871 ==
LOC: ED 11:25 → PCU 13:48
PROVIDERS: Admitting Provider Student in an Organized Health Care Education/Training Program; Emergency Provider Physician Assistant Medical; PCP Internal Medicine; Visit Provider Internal Medicine
DX: A41.9 Sepsis, unspecified organism (principal); I50.43 Acute on chronic combined systolic (congestive) and diastolic (congestive) heart failure; J18.9 Pneumonia, unspecified organism; I13.0 Hypertensive heart and chronic kidney disease with heart failure and stage 1 through stage 4 chronic kidney disease, or unspecified chronic kidney disease; I69.351 Hemiplegia and hemiparesis following cerebral infarction affecting right dominant side; R65.20 Severe sepsis without septic shock; N18.3 Chronic kidney disease, stage 3 (moderate); E11.22 Type 2 diabetes mellitus with diabetic chronic kidney disease; G20 Parkinson's disease; I25.10 Atherosclerotic heart disease of native coronary artery without angina pectoris; F02.80 Dementia in other diseases classified elsewhere, unspecified severity, without behavioral disturbance, psychotic disturbance, mood disturbance, and anxiety; I48.0 Paroxysmal atrial fibrillation; E78.5 Hyperlipidemia, unspecified; Y95 Nosocomial condition; D50.9 Iron deficiency anemia, unspecified; R09.02 Hypoxemia; I25.2 Old myocardial infarction; Z66 Do not resuscitate; Z87.891 Personal history of nicotine dependence; Z86.19 Personal history of other infectious and parasitic diseases; Z86.718 Personal history of other venous thrombosis and embolism; Z95.1 Presence of aortocoronary bypass graft
CPT/HCPCS: 36415; 36569; 71045; 80048; 80053; 81001; 82962; 83540; 83550; 83605; 83880; 84484; 85025; 85045; 85610; 87040; 87449; 87635; 93005; 93306; 94762; 97162; 97166; 99285; G2023; J7030; J7050; Q9957; A4216; C8929; J1940; U0003

== ENCOUNTER → 2020-09-20 05:00 | Outpatient (REF) | payer MEDICARE, MEDICAID, SELFPAY ==
[2020-01-01 14:02] VITALS: BMI 25.9
[2020-09-20 07:21] LABS: Hematocrit 35.9 % (37-47); Hemoglobin 11.8 g/dL (12.0-15.0); Mean Corp Hgb Conc 32.9 g/dL (32-36); Mean Corpuscular Hgb 32.1 pg (27.0-32.0); Mean Corpuscular Volume 97.6 fL (81-99); Mean Platelet Vol. 10.9 fl (6.2-12.0); Platelet Count 235 K/mm3 (150-450); RBC Distribution Width CV 12.7 % (11.6-14.6); RBC Distribution Width SD 45.5 fl (35.1-43.9); Red Blood Count 3.68 M/mm3 (4.2-5.4); White Blood Count 8.3 K/mm3 (4.4-11.0)
[2020-09-20 07:49] LABS: ALB/GLOB Ratio 0.7 RATIO (0.9-2.4); AST(SGOT) 21 U/L (15-37); Alanine Aminotransfer ALT/SGPT 26 U/L (13-56); Albumin, Serum 2.9 g/dL (3.2-5.0); Alkaline Phosphatase 222 U/L (45-117); Anion Gap 6 (5-15); BUN 33 mg/dL (7-18); Calcium,Total 8.8 mg/dL (8.5-10.1); Chloride 106 mmol/L (98-107); Cholesterol 109 mg/dL (200); Creatinine, Serum 1.83 mg/dL (0.55-1.02); EST Glomerular Filtration Rate 29 mL/min (>60); Est Glom Filt Rate - Afr Amer 35 mL/min (>60); Ferritin 228 ng/mL (8-252); Globulin 3.9 g/dL (2.2-4.2); Glucose 161 mg/dL (74-106); High Density Lipoprotein 57 mg/dL; Iron 60 ug/dL (50-170); Iron Binding Capacity,Total 221 ug/dL (250-450); Potassium 4.1 mmol/L (3.5-5.1); Protein, Total 6.8 g/dL (6.4-8.2); Sodium Level 140 mmol/L (136-145); T4 Free Direct 1.15 ng/dL (0.76-1.46); Thyroid Stim Hormone (TSH) 0.15 uIU/mL (0.358-3.74); Triglycerides 60 mg/dL; Very Low Density Lipoprotein 12 mg/dL (5-40)
[2020-09-20 08:26] LABS: Hemoglobin A1c 7.2 % (3.8-5.6)
[2020-09-21 10:09] LABS: Transferrin 145 mg/dL (192-364)
== END ==
LOC: OLS.SW500 05:00
PROVIDERS: PCP Internal Medicine; Visit Provider Internal Medicine
DX: R53.83 Other fatigue (principal); D64.9 Anemia, unspecified; E11.9 Type 2 diabetes mellitus without complications
CPT/HCPCS: 36415; 80053; 80061; 82728; 83036; 83540; 83550; 83735; 84439; 84443; 84466; 85027

== ENCOUNTER → 2020-11-18 05:00 | Outpatient (REF) | payer MEDICARE, MEDICAID, SELFPAY ==
[2020-11-18 09:15] LABS: Hematocrit 35.4 % (37-47); Hemoglobin 11.1 g/dL (12.0-15.0); Mean Corp Hgb Conc 31.4 g/dL (32-36); Mean Corpuscular Hgb 31.4 pg (27.0-32.0); Mean Corpuscular Volume 100.3 fL (81-99); Platelet Count 229 K/mm3 (150-450); RBC Distribution Width CV 12.7 % (11.6-14.6); RBC Distribution Width SD 46.6 fl (35.1-43.9); Red Blood Count 3.53 M/mm3 (4.2-5.4); White Blood Count 7.3 K/mm3 (4.4-11.0)
[2020-11-18 09:34] LABS: ALB/GLOB Ratio 0.7 RATIO (0.9-2.4); AST(SGOT) 20 U/L (15-37); Alanine Aminotransfer ALT/SGPT 24 U/L (13-56); Albumin, Serum 2.7 g/dL (3.2-5.0); Alkaline Phosphatase 156 U/L (45-117); Anion Gap 6 (5-15); BUN 29 mg/dL (7-18); BUN/Creat Ratio 16.9 RATIO (10-20); Calcium,Total 8.6 mg/dL (8.5-10.1); Chloride 109 mmol/L (98-107); Creatinine, Serum 1.72 mg/dL (0.55-1.02); EST Glomerular Filtration Rate 31 mL/min (>60); Est Glom Filt Rate - Afr Amer 37 mL/min (>60); Globulin 3.8 g/dL (2.2-4.2); Glucose 139 mg/dL (74-106); Potassium 4.5 mmol/L (3.5-5.1); Protein, Total 6.5 g/dL (6.4-8.2); Sodium Level 140 mmol/L (136-145); T4 Free Direct 1.08 ng/dL (0.76-1.46)
[2020-11-19 16:08] LABS: Alkaline Phosphatase, Serum 163 IU/L (48-121); Bone Fraction 57 % (14-68); Liver Fraction 41 % (18-85)
[2020-11-19 16:50] LABS: Intestinal Fraction 1 % (0-18)
== END ==
LOC: OLS.SW500 05:00
PROVIDERS: PCP Internal Medicine; Visit Provider Internal Medicine
DX: E11.22 Type 2 diabetes mellitus with diabetic chronic kidney disease (principal); E78.5 Hyperlipidemia, unspecified; N18.30 Chronic kidney disease, stage 3 unspecified; R53.83 Other fatigue
CPT/HCPCS: 36415; 80053; 84075; 84080; 84439; 84443; 85027

== ENCOUNTER → 2021-12-27 | Outpatient (REF) | payer MEDICARE, MEDICAID, SELFPAY ==
[2021-12-27 12:43] LABS: Absolute Lymphocyte Count 1.64 X10^3/uL (0.83-4.51); Absolute Neutrophil Count 4.6 X10^3/uL (2.0-7.7); Basophil# 0.02 X10^3/uL; Basophil% 0.3 % (0-1); Eosinophil# 0.23 X10^3/uL; Eosinophils% 3.2 % (0-5); Hematocrit 35.2 % (37-47); Hemoglobin 11.2 g/dL (12.0-15.0); Lymphocyte # 1.64 X10^3/ul (0.83-4.51); Lymphocyte % 22.8 % (19-41); Mean Corp Hgb Conc 31.8 g/dL (32-36); Mean Corpuscular Hgb 30.9 pg (27.0-32.0); Monocyte# 0.64 X10^3/uL; Monocyte% 8.9 % (0-10); NRBC Flagged by Analyzer 0 % (0-5); Neutrophil # 4.64 X10^3/uL (2.7-7.7); Neutrophil % 64.5 % (47-70); Platelet Count 238 K/mm3 (150-450); RBC Distribution Width CV 12.3 % (11.6-14.6); RBC Distribution Width SD 44.1 fl (35.1-43.9); Red Blood Count 3.63 M/mm3 (4.2-5.4); White Blood Count 7.2 K/mm3 (4.4-11.0)
[2021-12-27 13:07] LABS: Anion Gap 6 (5-15); BUN 33 mg/dL (7-18); BUN/Creat Ratio 18.9 RATIO (10-20); CRP < 2.90 mg/L (0.0-3.0); Calcium,Total 8.3 mg/dL (8.5-10.1); Chloride 113 mmol/L (98-107); Creatinine, Serum 1.75 mg/dL (0.55-1.02); EST Glomerular Filtration Rate 30 mL/min (>60); Est Glom Filt Rate - Afr Amer 36 mL/min (>60); Glucose 135 mg/dL (74-106); Potassium 4.9 mmol/L (3.5-5.1); Sodium Level 142 mmol/L (136-145); Thyroid Stim Hormone (TSH) 0.08 uIU/mL (0.358-3.74)
[2021-12-27 13:44] LABS: Hemoglobin A1c 7.9 % (3.8-5.6)
[2021-12-29 09:18] LABS: Vitamin B12 607 pg/mL (211-911)
== END | disposition home or self-care (01) ==
LOC: OLS.SW500 10:20
PROVIDERS: PCP Internal Medicine; Visit Provider Internal Medicine
DX: D64.9 Anemia, unspecified (principal); E11.9 Type 2 diabetes mellitus without complications
CPT/HCPCS: 36415; 80048; 82607; 83036; 84443; 85025; 86140

== ENCOUNTER 2021-12-30 14:04 | Emergency (ER) | payer MEDICARE, MEDICAID, SELFPAY ==
[2021-12-30 14:06] VITALS: BP 129/83; PULSE 55; RESP 16; TEMP 35.8; O2SAT 100; BMI 28.3
[2021-12-30 14:23] VITALS: BP 105/50; PULSE 53; RESP 18; TEMP 35.8; O2SAT 98
--- NOTE | 2021-12-30 15:05 | RAD_ITS ---
EXAM: XR LEFT FOOT COMPLETE, 3 OR MORE VIEWS CLINICAL INDICATION: Injury/Pain TECHNIQUE: Frontal, lateral and oblique views of the left foot. This report was created using [employer] report generation technology. COMPARISON: None. FINDINGS: BONES/JOINTS: Diffuse osteopenia. No acute fracture. No subluxation. Normal alignment. Preservation of the joint space. No sclerotic or destructive changes observed. SOFT TISSUES: Unremarkable. No soft tissue swelling or gas. No radiopaque foreign body. RAD/Foot min 3 Views IMPRESSION: Diffuse osteopenia but no suspicious acute fracture or dislocation of the left foot. Electronically Signed: Oscar Medina MD at 15:23 EDT ,
[2021-12-30 15:10] LABS: Absolute Lymphocyte Count 1.58 X10^3/uL (0.83-4.51); Absolute Neutrophil Count 7.4 X10^3/uL (2.0-7.7); Basophil# 0.02 X10^3/uL; Basophil% 0.2 % (0-1); Eosinophil# 0.31 X10^3/uL; Hematocrit 38.8 % (37-47); Hemoglobin 12.1 g/dL (12.0-15.0); Lymphocyte # 1.58 X10^3/ul (0.83-4.51); Lymphocyte % 15.5 % (19-41); Mean Corp Hgb Conc 31.2 g/dL (32-36); Mean Corpuscular Hgb 30.3 pg (27.0-32.0); Mean Corpuscular Volume 97.2 fL (81-99); Mean Platelet Vol. 10.7 fl (6.2-12.0); Monocyte% 8.8 % (0-10); NRBC Flagged by Analyzer 0 % (0-5); Neutrophil # 7.35 X10^3/uL (2.7-7.7); Neutrophil % 72.1 % (47-70); Platelet Count 253 K/mm3 (150-450); RBC Distribution Width CV 12.2 % (11.6-14.6); RBC Distribution Width SD 44.2 fl (35.1-43.9); Red Blood Count 3.99 M/mm3 (4.2-5.4); White Blood Count 10.2 K/mm3 (4.4-11.0)
[2021-12-30 15:23] LABS: Anion Gap 4 (5-15); BUN 36 mg/dL (7-18); BUN/Creat Ratio 18.8 RATIO (10-20); Calcium,Total 8.8 mg/dL (8.5-10.1); Chloride 112 mmol/L (98-107); Creatinine, Serum 1.91 mg/dL (0.55-1.02); EST Glomerular Filtration Rate 27 mL/min (>60); Est Glom Filt Rate - Afr Amer 33 mL/min (>60); Estimated Creatinine Clearance 23.82 ml/min; Glucose 115 mg/dL (74-106); Potassium 4.6 mmol/L (3.5-5.1); Sodium Level 141 mmol/L (136-145)
--- NOTE | 2021-12-30 15:35 | ED.VIS.LOWEX ---
HPI History of Present Illness Chief Complaint: Wound Detail of Chief Complaint: Necrotic wound lateral aspect left foot in the proximal since many the fift Informant: patient and SNF Occured/Mechanism Comment: Patient has necrotic area lateral aspect left foot Onset/Context/Timing Onset: - (Presumed days) Context: Gradual Onset Timing: Continuous Location: Lateral aspect left foot over the head of the fifth metatarsal Current Severity: Mild Maximum Severity: Mild Worsened by: Unknown Relieved by: Nothing Associated Symptoms Associated Symptoms: Positive for - (Patient denies fever, chills or night sweats. Furthermore, she denies pain.); Negative for Parasthesia, Weakness or Loss of Funtion Narrative Narrative: Patient is a 76-year-old woman who resides at nursing facility. She was sent for evaluation of necrotic area lateral aspect of left foot as previously described. She denies fever, chills night sweats. She denies drainage. She is on an anticoagulant. She does not recall trauma to the area. She denies paresthesia, anesthesia medics. She states she is not very active. She states it is not unusual for her foot to be swollen. She denies history of osteomyelitis. She denies history of diabetes. Review of prior records indicates the patient does have diabetes. In light of this she was asked if she has polyuria, polydipsia and polyphagia. She denies any of these symptoms to suggest hyperglycemia. Tetanus Immunization: Unknown Prior similar symptoms: No Recent Illness/Hospitalization: No [facility] Medical History (Updated 12/30/21 @ 16:[address] 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 Chronic kidney disease (CKD) Confusion COVID-19 Essential (primary) hypertension HCAP (healthcare-associated pneumonia) Hypoxemia Nicotine dependence NSTEMI (non-ST elevated myocardial infarction) (04/22/19) Parkinson disease Pneumonia Sepsis Type 2 diabetes mellitus Unstable angina Home Medications atorvastatin 40 mg tablet 80 mg PO QHS cholesterol 04/22/19 [History Last Taken 04/21/19] acetaminophen 325 mg capsule 650 mg PO Q4H PRN PRN Pain Or Fever 08/11/19 [History Last Taken Unknown] aluminum-mag hydroxide-simethicone 400 mg-400 mg-40 mg/5 mL oral susp 30 ml PO Q4H PRN PRN GI DISTRESS 08/11/19 [History Last Taken Unknown] bisacodyl 10 mg rectal suppository 10 mg NH DAILY PRN PRN Constipation 08/11/19 [History Last Taken Unknown] dextrose 40 % oral gel 1 dose PO X1 PRN Hypoglycemia 08/11/19 [History Last Taken Unknown] docusate sodium 100 mg capsule 200 mg PO BID 08/11/19 [History Last Taken Unknown] fluoxetine 10 mg capsule 10 mg PO DAILY 08/11/19 [History Last Taken Unknown] glucagon (human recombinant) 1 mg solution for injection 1 mg IJ X1 PRN Hypoglycemia 08/11/19 [History Last Taken Unknown] glycerin (child) 1 ea NH X1 PRN Constipation 08/11/19 [History Last Taken Unknown] guaifenesin 100 mg/5 mL oral liquid 10 ml PO Q4H PRN PRN Congestion 08/11/19 [History Last Taken Unknown] insulin detemir U-100 100 unit/mL subcutaneous solution 12 unit SQ DAILY 08/11/19 [History Last Taken Unknown] insulin lispro 100 unit/mL subcutaneous solution 12 unit SQ BID 08/11/19 [History Last Taken Unknown] magnesium hydroxide 400 mg/5 mL oral suspension 30 ml PO DAILY PRN PRN Constipation 08/11/19 [History Last Taken Unknown] melatonin 3 mg tablet 3 mg PO QHS 08/11/19 [History Last Taken Unknown] sodium phosphates 19 gram-7 gram/118 mL enema 120 ml RECTAL X1 PRN Constipation 08/11/19 [History Last Taken Unknown] vitamin B complex and vitamin C no.20-folic acid 1 mg capsule 1 cap PO DAILY 08/11/19 [History Last Taken Unknown] acetaminophen 650 mg rectal suppository 650 mg NH Q4H PRN PRN fever/pain 09/02/19 [History Last Taken Unknown] carbidopa 25 mg-levodopa 100 mg tablet 1 tab PO TIDAC 09/02/19 [History Last Taken Unknown] furosemide 20 mg tablet 20 mg PO DAILY 09/02/19 [History Last Taken Unknown] polyethylene glycol 3350 17 gram oral powder packet 17 g PO DAILY PRN PRN Constipation 09/02/19 [History Last Taken Unknown] ferrous sulfate 325 mg (65 mg iron) tablet 325 mg PO 1200,1700 09/05/19 [Rx Last Taken Unknown] nutrition tx glu intol,lac-free,soy-fiber 0.06 gram-1.2 kcal/mL liquid 120 ml PO TIDCM 09/05/19 [Rx Last Taken Unknown] pantoprazole 40 mg tablet,delayed release 40 mg PO BID 09/05/19 [Rx Last Taken Unknown] apixaban 5 mg tablet 5 mg PO BID 10/09/19 [History Last Taken Unknown] carvedilol 6.25 mg tablet 6.25 mg PO BID 01/01/20 [History Last Taken Unknown] insulin lispro 100 unit/mL subcutaneous solution 5 unit subcut QAM 01/01/20 [History Last Taken Unknown] amlodipine 2.5 mg tablet 2.5 mg PO DAILY #90 tabs 02/06/21 [Rx Last Taken Unknown] doxycycline monohydrate 100 mg capsule 100 mg PO BID #14 CAPSULES 12/30/21 [Rx Last Taken Unknown] Allergy/AdvReac Type Severity Reaction Status Date / Time amantadine Allergy PT UNABLE Verified 12/30/21 14:06 TO RESPOND-NEEDS F/U famotidine Allergy Other Verified 12/30/21 14:06 nitrofurantoin Allergy PT UNABLE Verified 12/30/21 14:06 [From Macrobid] TO RESPOND-NEEDS F/U Penicillins [PCN] Allergy PT UNABLE Verified 12/30/21 14:06 TO RESPOND-NEEDS F/U povidone-iodine Allergy PT UNABLE Verified 12/30/21 14:06 TO RESPOND-NEEDS F/U shellfish derived Allergy Anaphylaxis Verified 12/30/21 14:06 Sulfa (Sulfonamide Allergy PT UNABLE Verified 12/30/21 14:06 Antibiotics) TO RESPOND-NEEDS F/U Family History Mother Colon cancer Father COPD (chronic obstructive pulmonary disease) Surgical History History of coronary artery bypass graft (05/02/19) History of left heart catheterization (04/23/19) Social History (Updated 12/30/21 @ 15:[address] Artie Dai MD) household members: none housing: [facility] Smoking Status: Former smoker how long ago did patient quit smoking: < 1 year ago alcohol intake: never substance use type: does not use caffeine: Yes Type: coffee ROS ROS ED Constitutional Constitutional ED: Denies chills, fever(s), subjective, sweats or weight loss Eyes Eyes: Denies blurry vision or change in vision ENT ENT ED: Denies ear pain, rhinorrhea or sore throat Cardiovascular Cardiovascular: Denies chest pain or palpitations Respiratory/Chest Respiratory/Chest: Denies cough, dyspnea or dyspnea on exertion Gastrointestinal Gastrointestinal: Denies abdominal pain, diarrhea, nausea or vomiting Genitourinary Genitourinary ED: Denies dysuria, hematuria or urinary frequency Musculoskeletal Musculoskeletal: Reports other Details: Wound lateral aspect left foot previously described and documented ; Denies arthralgias, myalgias or neck pain Integumentary Reports other Details: Breakdown of skin with necrotic area. Neurologic Neurologic: Denies paresthesias or weakness Endocrine Endocrinology: Denies polydipsia, polyphagia or polyuria Hematologic/Lymphatic Hematologic/Lymphatic: Denies easy bleeding or easy bruising EXAM Physical Exam Const Vital Signs: 12/30/21 14:06 12/30/21 14:23 12/30/21 15:36 Temperature 96.5 F L 96.5 F L 96.9 F L Temperature Source Temporal Temporal Temporal Pulse Rate 55 L 53 L 53 L Respiratory Rate 16 18 20 H Blood Pressure 129/83 H 105/50 L 140/34 H Blood Pressure Mean 98 68 69 Pulse Ox 100 98 99 Oxygen Delivery Method Room Air Room Air Room Air Positive well nourished and well developed; Negative for obese, cachectic or contractures General Appearance ED: well developed and NAD; Negative for cachectic or contractures Nutritional Appearance: Negative for cachectic or obese HEENT Reports moist mucous membranes HEENT Narrative: Ears normal. Nares patent. Uvula midline. No deviation with protrusion. No erythema or exudate the posterior pharynx. normocephalic and atraumatic Eyes PERRL Chest Wall palpation of chest normal Resp normal respiratory effort and no retractions Cardio regular rate and no murmurs Rhythm: abnormal rhythm irregularly irregular GI non-tender, non-distended and no masses Auscultation: hypoactive bowel sounds Palpation: soft Back/Spine no CVA tenderness Thoracic Spine / Upper Back: Negative for thoracic spinal tenderness Lumbar Spine / Lower Back: Negative for lumbar spinal tenderness Extremity full ROM; Negative for normal to inspection Extremity Narrative: There is edema dorsal aspect of the left foot. There is a necrotic area that is 1 x 2 cm in size. There is tissue noted. There is surrounding erythema with warmth. There is no induration. There is no lymphangitis. Is no popliteal or inguinal lymphadenopathy. There is no fluctuance. General Extremety ED: Yes edema General Extremity: edema Neuro oriented x3, CN's II-XII intact bilaterally and moves all extremities Sensorium / Orientation: alert Psych mental status grossly normal Skin Skin Narrative: Wound as previously Rashes: No no rashes MDM MDM MDM Narrative Medical decision making narrative: OfWill pain x-ray to evaluate for evidence of fracture and osteomyelitis. Concern patient does have mild surrounding cellulitis. Patient has dry necrosis/gangrene. Since she is diabetic basic metabolic panel was obtained to assess glucose as well as CO2 anion gap. Renal function was assessed since antibiotic doses may need to be adjusted. Will obtain CBC to assess for white count and differential. ESR was obtained. This was obtained in case there was concern for osteomyelitis. Patient has dry gangrene. There is evidence of cellulitis. There is no evidence or concern at this time for osteomyelitis. Patient was treated with doxycycline for streptococcal, staphylococcal and anaerobic coverage especially since she has an elevated creatinine with a GFR of 27. Lab Data Attestation: I reviewed the patient's lab results. Lab results narrative: CBC and differential unremarkable. Patient's ESR is elevated however once corrected for age its mildly elevated. Basic metabolic panels marked for creatinine of 1.9. Lactate is normal. Labs: Laboratory Results - last 24 hr 12/30/21 12/30/21 12/30/21 15:00 15:00 15:00 WBC 10.2 RBC 3.99 L Hgb 12.1 Hct 38.8 MCV 97.2 MCH 30.3 MCHC 31.2 L RDW Std Deviation 44.2 H RDW Coeff of Abbie 12.2 Plt Count 253 MPV 10.7 Immature Gran % (Auto) 0.400 Neut % (Auto) 72.1 H Lymph % (Auto) 15.5 L [place] % (Auto) 8.8 Eos % (Auto) 3.0 Baso % (Auto) 0.2 Absolute Neuts (auto) 7.4 Absolute Lymphs (auto) 1.58 Nucleated RBC % 0 ESR 54 H Sodium 141 Potassium 4.6 Chloride 112 H Carbon Dioxide 25.0 Anion Gap 4 L BUN 36 H Creatinine 1.91 H Estim Creat Clear Calc 23.82 Est GFR (MDRD) Af Amer 33 L Est GFR (MDRD) Non-Af 27 L BUN/Creatinine Ratio 18.8 Glucose 115 H Lactic Acid 1.1 Calcium 8.8 Radiography X-Ray: - (Three-view x-ray of the foot was obtained independently reviewed and interpreted by me as positive for soft tissue defect. There is evidence of osteopenia. There is no mental fracture or foreign body. There is no evidence of osteomyelitis. Since patient is afebrile with a normal white count we w) Diagnostic Testing: Clinical Impression(s) from Imaging Studies Foot X-Ray 12/30/21 15:05 IMPRESSION: Diffuse osteopenia but no suspicious acute fracture or dislocation of the left foot. Electronically Signed: Oscar Medina MD at 15:23 EDT , Discharge Plan Triage Chief Complaint: Wound ED Provider: Artie Dai Dx/Rx/DC Orders Clinical Impression: Cellulitis of foot, left, Dry gangrene, Pedal edema, Chronic kidney disease (CKD) stage G4/A1, severely decreased glomerular filtration rate (GFR) between 15-29 mL/min/1.73 square meter and albuminuria creatinine ratio less than 30 mg/g Instructions: ED Cellulitis Prescriptions: New doxycycline monohydrate 100 mg capsule 100 mg PO BID Qty: 14 0RF No Action carvedilol 6.25 mg tablet 6.25 mg PO BID Rx Instructions: must administer with a meal/food insulin lispro 100 unit/mL solution 5 unit SC QAM amlodipine 2.5 mg tablet 2.5 mg PO DAILY Qty: 90 3RF atorvastatin 40 MG tablet 80 mg PO QHS dextrose 38 GM gel 1 dose PO X1 PRN (Reason: Hypoglycemia) melatonin 3 MG tablet 3 mg PO QHS guaifenesin 10 ML liquid 10 ml PO Q4H PRN PRN (Reason: Congestion) glycerin (child) 1 EACH suppository 1 ea NH X1 PRN (Reason: Constipation) magnesium hydroxide 30 ML suspension 30 ml PO DAILY PRN PRN (Reason: Constipation) bisacodyl 10 MG suppository 10 mg NH DAILY PRN PRN (Reason: Constipation) sodium phosphates 1 BOTTLE enema 120 ml RECTAL X1 PRN (Reason: Constipation) fluoxetine 10 MG capsule 10 mg PO DAILY glucagon (human recombinant) 1 MG recon soln 1 mg IJ X1 PRN (Reason: Hypoglycemia) docusate sodium 100 MG capsule 200 mg PO BID insulin lispro 100 UNIT/ML solution 12 unit SQ BID B complex with C 20-folic acid 1 CAPSULE capsule 1 cap PO DAILY alum-mag hydroxide-simeth 355 ML suspension 30 ml PO Q4H PRN PRN (Reason: GI DISTRESS) insulin detemir U-100 100 UNIT/ML solution 12 unit SQ DAILY acetaminophen 325 MG capsule 650 mg PO Q4H PRN PRN (Reason: Pain Or Fever) acetaminophen 650 MG suppository 650 mg NH Q4H PRN PRN (Reason: fever/pain) polyethylene glycol 3350 17 GM packet 17 g PO DAILY PRN PRN (Reason: Constipation) furosemide 20 MG tablet 20 mg PO DAILY carbidopa-levodopa 1 TABLET tablet 1 tab PO TIDAC pantoprazole 40 MG tablet 40 mg PO BID 0RF ferrous sulfate 325 MG tablet 325 mg PO 1200,1700 0RF nut.tx.gluc intol,lf,soy-fiber 120 ML liquid 120 ml PO TIDCM 0RF apixaban 5 mg tablet 5 mg PO BID Primary Care Provider: Wanda Cortez Referrals: Wanda Cortez MD [Primary Care Provider] - Center,Wound [Non-Staff] - 3-5 Days Activity Restrictions/Additional Instructions: Return if temperature greater than 100, lymphangitis, purulent drainage or worsening cellulitis; otherwise, follow-up at the wound center. Also recommend nurse practitioner or physician at facility look at the foot in 2 days Disposition Disposition: Home, Self Care
[2021-12-30 15:36] VITALS: BP 140/34; PULSE 53; RESP 20; TEMP 36.1; O2SAT 99
[2021-12-30 15:49] LABS: Lactic Acid 1.1 mmol/L (0.4-1.9)
[2021-12-30 15:51] LABS: Erythrocyte Sedimentation Rate 54 mm/hr (0-30)
[2021-12-30] MEDS: Doxycycline 100 MG CAPSULE PO (16:50)
[2021-12-30 16:52] VITALS: BP 176/57; PULSE 61; RESP 18; O2SAT 95
--- NOTE | 2021-12-30 16:55 | NURSING ---
SPOKE WITH [facility]ANIT[facility] ETA 17:20 AT THIS TIME TO GET PT BACK TO [facility]
== END 2021-12-30 17:20 | disposition home or self-care (01) ==
PROVIDERS: Emergency Provider Emergency Medicine; PCP Internal Medicine; Visit Provider Emergency Medicine
DX: L03.116 Cellulitis of left lower limb (principal); N18.4 Chronic kidney disease, stage 4 (severe); R60.0 Localized edema; I25.10 Atherosclerotic heart disease of native coronary artery without angina pectoris; I25.2 Old myocardial infarction; Z86.16 Personal history of COVID-19; Z95.1 Presence of aortocoronary bypass graft; Z87.891 Personal history of nicotine dependence
CPT/HCPCS: 73630; 80048; 83605; 85025; 85652; 99285

== ENCOUNTER → 2022-01-03 | Outpatient (REF) | payer MEDICARE, MEDICAID, SELFPAY | LOC: OLS.SW500 07:45 | PROVIDERS: PCP Internal Medicine; Visit Provider Internal Medicine | DX: S91.302A Unspecified open wound, left foot, initial encounter (principal) | CPT/HCPCS: 36415; 86140; 87070; 87077; 87186; 87205 ==

== ENCOUNTER → 2022-01-06 | Outpatient (REF) | payer MEDICARE, MEDICAID, SELFPAY ==
[2022-01-06 09:01] LABS: Cholesterol 108 mg/dL (200); High Density Lipoprotein 47 mg/dL; Triglycerides 65 mg/dL; Very Low Density Lipoprotein 13 mg/dL (5-40)
== END ==
LOC: OLS.SW500 05:00
PROVIDERS: PCP Internal Medicine; Visit Provider Internal Medicine
DX: E78.5 Hyperlipidemia, unspecified (principal)
CPT/HCPCS: 36415; 80061

== ENCOUNTER → 2022-01-11 | Outpatient (REF) | payer MEDICARE, MEDICAID, SELFPAY ==
[2022-01-11 08:54] LABS: Tobramycin Once Daily Trough 4.4 ug/mL (<1.0)
== END ==
LOC: OLS.SW500 07:05
PROVIDERS: PCP Internal Medicine; Referring Provider Internal Medicine; Visit Provider Internal Medicine
DX: Z79.899 Other long term (current) drug therapy (principal)
CPT/HCPCS: 36415; 80200

== ENCOUNTER → 2022-01-13 | Outpatient (REF) | payer MEDICARE, MEDICAID, SELFPAY ==
[2022-01-13 09:18] LABS: Absolute Lymphocyte Count 2.07 X10^3/uL (0.83-4.51); Absolute Neutrophil Count 4.8 X10^3/uL (2.0-7.7); Basophil# 0.02 X10^3/uL; Basophil% 0.2 % (0-1); Eosinophil# 0.29 X10^3/uL; Eosinophils% 3.6 % (0-5); Hematocrit 33.2 % (37-47); Hemoglobin 10.3 g/dL (12.0-15.0); Lymphocyte # 2.07 X10^3/ul (0.83-4.51); Lymphocyte % 25.7 % (19-41); Mean Corpuscular Hgb 29.8 pg (27.0-32.0); Mean Platelet Vol. 11.1 fl (6.2-12.0); Monocyte# 0.78 X10^3/uL; Monocyte% 9.7 % (0-10); NRBC Flagged by Analyzer 0 % (0-5); Neutrophil # 4.83 X10^3/uL (2.7-7.7); Neutrophil % 60.2 % (47-70); Platelet Count 256 K/mm3 (150-450); RBC Distribution Width CV 12.4 % (11.6-14.6); RBC Distribution Width SD 43.1 fl (35.1-43.9); Red Blood Count 3.46 M/mm3 (4.2-5.4)
[2022-01-13 09:43] LABS: Anion Gap 6 (5-15); BUN 45 mg/dL (7-18); BUN/Creat Ratio 22.2 RATIO (10-20); CRP 3.16 mg/L (0.0-3.0); Calcium,Total 8.5 mg/dL (8.5-10.1); Chloride 112 mmol/L (98-107); Creatinine, Serum 2.03 mg/dL (0.55-1.02); EST Glomerular Filtration Rate 25 mL/min (>60); Est Glom Filt Rate - Afr Amer 31 mL/min (>60); Glucose 179 mg/dL (74-106); Potassium 4.8 mmol/L (3.5-5.1); Sodium Level 142 mmol/L (136-145)
== END ==
LOC: OLS.SW500 05:00
PROVIDERS: PCP Internal Medicine; Visit Provider Internal Medicine
DX: E11.9 Type 2 diabetes mellitus without complications (principal)
CPT/HCPCS: 36415; 80048; 85025; 86140

== ENCOUNTER 2022-01-19 15:11 | Emergency (ER) | payer MEDICARE, MEDICAID, SELFPAY ==
[2022-01-19 15:13] VITALS: BP 120/90; PULSE 139; RESP 16; TEMP 36.6; O2SAT 100; BMI 20.9
--- NOTE | 2022-01-19 15:43 | EDS_ITS ---
HPI History of Present Illness Chief Complaint: Wound Detail of Chief Complaint: Nonhealing left foot wound times months Informant: SNF Occured/Mechanism Comment: Nonhealing left foot wound. Onset/Context/Timing Context: Gradual Onset Timing: Continuous Quality of Pain: - (Patient complains of vague pain.) Location: Lower extremity exam on the left Current Severity: Patient is a able to qualitate Worsened by: Unknown Relieved by: Apparently nothing Associated Symptoms Associated Symptoms: Positive for - (Patient with mild dementia unable to determine) Narrative Narrative: Patient is 76-year-old woman who was sent from nursing facility to expedite and/or facilitate consult with vascular surgeon. Patient is not a good informant. She does have a history of significant peripheral arterial disease as well as atherosclerotic heart disease, hypertension, A. fib, and nicotine dependency. Paperwork that accompany patient from the nursing facility indicates that she is DNR Comfort Care arrest. She also has history of chronic renal disease due to her hypertension, major depression, cerebrovascular accident and Parkinson's disease. Patient had duplex lower extremity exam will study done of the left lower extremity. Findings revealed abnormal waveforms. Waveforms are monophasic continuous throughout the extremity with velocities in the common femoral proximal, mid and distal superficial femoral, popliteal, posterior tibial and dorsalis pedis arteries of 137, 159, 66, 400, 138, 59 and 57 cm/s respectively. Conclusion per continuous process coffee roaster is high-grade stenosis with hemodynamically significant across the distal superficial femoral artery and moderate to high a segmental stenosis at the proximal superficial femoral and popliteal arteries. PFSH PFS Medical History (Updated 01/19/22 @ 16:[address] Artie Dai MD) Afib Atherosclerotic heart disease [place] coronary artery w/angina pectoris Chronic kidney disease (CKD) Confusion COVID-19 Essential (primary) hypertension HCAP (healthcare-associated pneumonia) Hypoxemia Nicotine dependence NSTEMI (non-ST elevated myocardial infarction) (04/22/19) Parkinson disease Pneumonia Sepsis Type 2 diabetes mellitus Unstable angina Home Medications atorvastatin 40 mg tablet 80 mg PO QHS cholesterol 04/22/19 [History Last Taken 04/21/19] acetaminophen 325 mg capsule 650 mg PO Q4H PRN PRN Pain Or Fever 08/11/19 [History Last Taken Unknown] aluminum-mag hydroxide-simethicone 400 mg-400 mg-40 mg/5 mL oral susp 30 ml PO Q4H PRN PRN GI DISTRESS 08/11/19 [History Last Taken Unknown] bisacodyl 10 mg rectal suppository 10 mg RI DAILY PRN PRN Constipation 08/11/19 [History Last Taken Unknown] dextrose 40 % oral gel 1 dose PO X1 PRN Hypoglycemia 08/11/19 [History Last Taken Unknown] docusate sodium 100 mg capsule 200 mg PO BID 08/11/19 [History Last Taken Unk nown] fluoxetine 10 mg capsule 10 mg PO DAILY 08/11/19 [History Last Taken Unknown] glucagon (human recombinant) 1 mg solution for injection 1 mg IJ X1 PRN Hypoglycemia 08/11/19 [History Last Taken Unknown] glycerin (child) 1 ea RI X1 PRN Constipation 08/11/19 [History Last Taken Unknown] guaifenesin 100 mg/5 mL oral liquid 10 ml PO Q4H PRN PRN Congestion 08/11/19 [History Last Taken Unknown] insulin detemir U-100 100 unit/mL subcutaneous solution 12 unit SQ DAILY 08/11/19 [History Last Taken Unknown] insulin lispro 100 unit/mL subcutaneous solution 12 unit SQ BID 08/11/19 [History Last Taken Unknown] magnesium hydroxide 400 mg/5 mL oral suspension 30 ml PO DAILY PRN PRN Constipation 08/11/19 [History Last Taken Unknown] melatonin 3 mg tablet 3 mg PO QHS 08/11/19 [History Last Taken Unknown] sodium phosphates 19 gram-7 gram/118 mL enema 120 ml RECTAL X1 PRN Constipation 08/11/19 [History Last Taken Unknown] vitamin B complex and vitamin C no.20-folic acid 1 mg capsule 1 cap PO DAILY [History Last Taken Unknown] acetaminophen 650 mg rectal suppository 650 mg RI Q4H PRN PRN fever/pain 09/02/19 [History Last Taken Unknown] carbidopa 25 mg-levodopa 100 mg tablet 1 tab PO TIDAC 09/02/19 [History Last Taken Unknown] furosemide 20 mg tablet 20 mg PO DAILY 09/02/19 [History Last Taken Unknown] polyethylene glycol 3350 17 gram oral powder packet 17 g PO DAILY PRN PRN Constipation 09/02/19 [History Last Taken Unknown] ferrous sulfate 325 mg (65 mg iron) tablet 325 mg PO 1200,1700 09/05/19 [Rx Last Taken Unknown] nutrition tx glu intol,lac-free,soy-fiber 0.06 gram-1.2 kcal/mL liquid 120 ml PO TIDCM 09/05/19 [Rx Last Taken Unknown] pantoprazole 40 mg tablet,delayed release 40 mg PO BID 09/05/19 [Rx Last Taken Unknown] apixaban 5 mg tablet 5 mg PO BID 10/09/19 [History Last Taken Unknown] carvedilol 6.25 mg tablet 6.25 mg PO BID 01/01/20 [History Last Taken Unknown] insulin lispro 100 unit/mL subcutaneous solution 5 unit subcut QAM 01/01/20 [History Last Taken Unknown] amlodipine 2.5 mg tablet 2.5 mg PO DAILY #90 tabs 02/06/21 [Rx Last Taken Unknown] doxycycline monohydrate 100 mg capsule 100 mg PO BID #14 CAPSULES 12/30/21 [Rx Last Taken Unknown] Allergy/AdvReac Type Severity Reaction Status Date / Time amantadine Allergy PT UNABLE Verified 01/19/22 15:58 TO RESPOND-NEEDS F/U famotidine Allergy Other Verified 01/19/22 15:58 nitrofurantoin Allergy PT UNABLE Verified 01/19/22 15:58 [From Macrobid] TO RESPOND-NEEDS F/U Penicillins [PCN] Allergy PT UNABLE Verified 01/19/22 15:58 TO RESPOND-NEEDS F/U povidone-iodine Allergy PT UNABLE Verified 01/19/22 15:58 TO RESPOND-NEEDS F/U shellfish derived Allergy Anaphylaxis Verified 01/19/22 15:58 Sulfa (Sulfonamide Allergy PT UNABLE Verified 01/19/22 15:58 Antibiotics) TO RESPOND-NEEDS F/U Family History Mother Colon cancer Father COPD (chronic obstructive pulmonary disease) Surgical History History of coronary artery bypass graft (05/02/19) History of left heart catheterization (04/23/19) Social History household members: none housing: [facility] Smoking Status: Former smoker how long ago did patient quit smoking: < 1 year ago alcohol intake: never substance use type: does not use caffeine: Yes Type: coffee ROS ROS ED Review of Systems ROS Unobtainable: due to mental status Neurologic Neurologic: Reports paresthesias EXAM Physical Exam Const Vital Signs: 01/19/22 15:13 01/19/22 15:57 Temperature 97.8 F Temperature Source Temporal Pulse Rate 139 H 115 H Respiratory Rate 16 18 Blood Pressure 120/90 H 119/81 H Blood Pressure Mean 100 93 Pulse Ox 100 97 Oxygen Delivery Method Room Air Room Air Positive well nourished, well developed, obese and unkempt General Appearance ED: unkempt, well developed and NAD Nutritional Appearance: obese HEENT HEENT Narrative: Head is atraumatic normocephalic. Ears normal. Nares patent. Mucosa moist. Uvula midline. No deviation of protrusion. No erythema or exudate. Eyes Eyes Narrative: Pupils equal round reactive. Extract muscle intact. Sclera is anicteric. Conjunctive is pink. Neck full ROM and supple Chest Wall inspection of chest normal and palpation of chest normal Resp normal respiratory effort, no retractions and clear to auscultation bilaterally Cardio regular rate and no murmurs Rhythm: abnormal rhythm irregularly irregular GI non-tender, non-distended and no masses Auscultation: normoactive bowel sounds Palpation: soft Back/Spine no CVA tenderness Extremity Negative for normal to inspection Extremity Narrative: There is a nonhealing wound distal lateral and plantar side of the left foot in the proximity of the MTP joint. There is minimal erythema. There is no lymphangitis. There is no palpable DP or PT flow. This is not surprising since patient has monophasic flow on arterial duplex study that was recently performed. General Extremety ED: Negative for cyanosis or edema General Extremity: Negative for cyanosis or edema Neuro No oriented x3, CN's II-XII intact bilaterally and moves all extremities Sensorium / Orientation: alert Psych mental status grossly normal Appearance: unkempt Skin Skin Narrative: Open wound that has not been healing and is not infected. MDM MDM MDM Narrative Medical decision making narrative: Patient had duplex lower extremity exam will study done of the left lower extremity. Findings revealed abnormal waveforms. Waveforms are monophasic continuous throughout the extremity with velocities in the common femoral proximal, mid and distal superficial femoral, popliteal, posterior tibial and dorsalis pedis arteries of 137, 159, 66, 400, 138, 59 and 57 cm/s respectively. Conclusion per continuous process coffee roaster is high-grade stenosis with hemodynamically significant across the distal superficial femoral artery and moderate to high a segmental stenosis at the proximal superficial femoral and popliteal arteries. Case was discussed with Dr. Bowen. He requested I copy him my note and his office staff will contact the nursing facility for appointment this week. Lab Data Attestation: I reviewed the patient's lab results. Lab results narrative: CBC is unremarkable. Basic metabolic panels marked for an elevated creatinine. Last creatinine was 2.04. BUN is also elevated with elevated BUN to creatinine ratio of approximately 25-1. Estimated GFR is 20. Labs: Laboratory Results - last 24 hr 01/19/22 01/19/22 15:55 15:55 WBC 10.1 RBC 3.85 L Hgb 12.1 Hct 37.9 MCV 98.4 MCH 31.4 MCHC 31.9 L RDW Std Deviation 44.9 H RDW Coeff of Abbie 12.5 Plt Count 232 MPV 10.6 Immature Gran % (Auto) 0.300 Neut % (Auto) 70.2 H Lymph % (Auto) 17.7 L [place] % (Auto) 9.3 Eos % (Auto) 2.2 Baso % (Auto) 0.3 Absolute Neuts (auto) 7.1 Absolute Lymphs (auto) 1.79 Nucleated RBC % 0 Sodium 143 Potassium 4.7 Chloride 114 H Carbon Dioxide 24.0 Anion Gap 5 BUN 63 H Creatinine 2.46 H Estim Creat Clear Calc 18.39 Est GFR (MDRD) Af Amer 25 L Est GFR (MDRD) Non-Af 20 L BUN/Creatinine Ratio 25.6 H Glucose 101 Calcium 8.8 Treatment and Re-Evaluation Narrative: Patient was discussed with Dr. Bowen. Plan is discharge and follow-up outpatient this week Discharge Plan Triage Chief Complaint: Wound ED Provider: Artie Dai Dx/Rx/DC Orders Clinical Impression: PAOD (peripheral arterial occlusive disease), Afib, Atherosclerotic heart disease [place] coronary artery w/angina pectoris, Essential (primary) hypertension, Non-healing ulcer of left foot, Acute renal failure superimposed on stage 4 chronic kidney disease Instructions: ED Peripheral Artery Disease (PAD), ED Wound Care Prescriptions: No Action carvedilol 6.25 mg tablet 6.25 mg PO BID Rx Instructions: must administer with a meal/food insulin lispro 100 unit/mL solution 5 unit SC QAM amlodipine 2.5 mg tablet 2.5 mg PO DAILY Qty: 90 3RF atorvastatin 40 MG tablet 80 mg PO QHS dextrose 38 GM gel 1 dose PO X1 PRN (Reason: Hypoglycemia) melatonin 3 MG tablet 3 mg PO QHS guaifenesin 10 ML liquid 10 ml PO Q4H PRN PRN (Reason: Congestion) glycerin (child) 1 EACH suppository 1 ea RI X1 PRN (Reason: Constipation) magnesium hydroxide 30 ML suspension 30 ml PO DAILY PRN PRN (Reason: Constipation) bisacodyl 10 MG suppository 10 mg RI DAILY PRN PRN (Reason: Constipation) sodium phosphates 1 BOTTLE enema 120 ml RECTAL X1 PRN (Reason: Constipation) fluoxetine 10 MG capsule 10 mg PO DAILY glucagon (human recombinant) 1 MG recon soln 1 mg IJ X1 PRN (Reason: Hypoglycemia) docusate sodium 100 MG capsule 200 mg PO BID insulin lispro 100 UNIT/ML solution 12 unit SQ BID B complex with C 20-folic acid 1 CAPSULE capsule 1 cap PO DAILY alum-mag hydroxide-simeth 355 ML suspension 30 ml PO Q4H PRN PRN (Reason: GI DISTRESS) insulin detemir U-100 100 UNIT/ML solution 12 unit SQ DAILY acetaminophen 325 MG capsule 650 mg PO Q4H PRN PRN (Reason: Pain Or Fever) acetaminophen 650 MG suppository 650 mg RI Q4H PRN PRN (Reason: fever/pain) polyethylene glycol 3350 17 GM packet 17 g PO DAILY PRN PRN (Reason: Constipation) furosemide 20 MG tablet 20 mg PO DAILY carbidopa-levodopa 1 TABLET tablet 1 tab PO TIDAC pantoprazole 40 MG tablet 40 mg PO BID 0RF ferrous sulfate 325 MG tablet 325 mg PO 1200,1700 0RF nut.tx.gluc intol,lf,soy-fiber 120 ML liquid 120 ml PO TIDCM 0RF doxycycline monohydrate 100 mg capsule 100 mg PO BID Qty: 14 0RF apixaban 5 mg tablet 5 mg PO BID Primary Care Provider: Meka Sousa Referrals: Sukhdev Bowen MD [Med Staff - Active Staff] - 3-5 Days (Patient with significant arterial disease left lower extremity and nonhealing left foot ulcer) Meka Sousa MD [Primary Care Provider] - Activity Restrictions/Additional Instructions: Dr. Bowen's office staff will call tomorrow for appointment later this week. Disposition Disposition: Retirement Facility
[2022-01-19 15:57] VITALS: BP 119/81; PULSE 115; RESP 18; O2SAT 97
[2022-01-19 16:07] LABS: Absolute Lymphocyte Count 1.79 X10^3/uL (0.83-4.51); Absolute Neutrophil Count 7.1 X10^3/uL (2.0-7.7); Basophil# 0.03 X10^3/uL; Basophil% 0.3 % (0-1); Eosinophil# 0.22 X10^3/uL; Eosinophils% 2.2 % (0-5); Hematocrit 37.9 % (37-47); Hemoglobin 12.1 g/dL (12.0-15.0); Lymphocyte # 1.79 X10^3/ul (0.83-4.51); Lymphocyte % 17.7 % (19-41); Mean Corp Hgb Conc 31.9 g/dL (32-36); Mean Corpuscular Hgb 31.4 pg (27.0-32.0); Mean Corpuscular Volume 98.4 fL (81-99); Mean Platelet Vol. 10.6 fl (6.2-12.0); Monocyte# 0.94 X10^3/uL; Monocyte% 9.3 % (0-10); NRBC Flagged by Analyzer 0 % (0-5); Neutrophil # 7.08 X10^3/uL (2.7-7.7); Neutrophil % 70.2 % (47-70); Platelet Count 232 K/mm3 (150-450); RBC Distribution Width CV 12.5 % (11.6-14.6); RBC Distribution Width SD 44.9 fl (35.1-43.9); Red Blood Count 3.85 M/mm3 (4.2-5.4); White Blood Count 10.1 K/mm3 (4.4-11.0)
[2022-01-19 16:28] LABS: Anion Gap 5 (5-15); BUN 63 mg/dL (7-18); BUN/Creat Ratio 25.6 RATIO (10-20); Calcium,Total 8.8 mg/dL (8.5-10.1); Chloride 114 mmol/L (98-107); Creatinine, Serum 2.46 mg/dL (0.55-1.02); EST Glomerular Filtration Rate 20 mL/min (>60); Est Glom Filt Rate - Afr Amer 25 mL/min (>60); Estimated Creatinine Clearance 18.39 ml/min; Glucose 101 mg/dL (74-106); Potassium 4.7 mmol/L (3.5-5.1); Sodium Level 143 mmol/L (136-145)
--- NOTE | 2022-01-19 17:12 | NURSING ---
SPOKE WITH [facility] ETA OF 90 MINUTES AT THIS TIME TO GET PT BACK TO [facility]
[2022-01-19 18:20] VITALS: RESP 18
== END 2022-01-19 18:21 | disposition skilled nursing facility (03) ==
PROVIDERS: Emergency Provider Emergency Medicine; PCP Internal Medicine; Visit Provider Emergency Medicine
DX: E11.621 Type 2 diabetes mellitus with foot ulcer (principal); E11.51 Type 2 diabetes mellitus with diabetic peripheral angiopathy without gangrene; L97.529 Non-pressure chronic ulcer of other part of left foot with unspecified severity; N17.9 Acute kidney failure, unspecified; E11.22 Type 2 diabetes mellitus with diabetic chronic kidney disease; N18.4 Chronic kidney disease, stage 4 (severe); I48.91 Unspecified atrial fibrillation; I25.119 Atherosclerotic heart disease of native coronary artery with unspecified angina pectoris; I12.9 Hypertensive chronic kidney disease with stage 1 through stage 4 chronic kidney disease, or unspecified chronic kidney disease; F03.A0 Unspecified dementia, mild, without behavioral disturbance, psychotic disturbance, mood disturbance, and anxiety; E66.9 Obesity, unspecified; Z87.891 Personal history of nicotine dependence
CPT/HCPCS: 80048; 85025; 99282

== ENCOUNTER → 2022-01-30 | Outpatient (REF) | payer MEDICARE, MEDICAID, SELFPAY ==
[2022-01-30 07:39] LABS: Absolute Lymphocyte Count 2.14 X10^3/uL (0.83-4.51); Absolute Neutrophil Count 5.6 X10^3/uL (2.0-7.7); Basophil# 0.02 X10^3/uL; Basophil% 0.2 % (0-1); Eosinophil# 0.24 X10^3/uL; Eosinophils% 2.7 % (0-5); Hematocrit 34.5 % (37-47); Hemoglobin 11.6 g/dL (12.0-15.0); Lymphocyte # 2.14 X10^3/ul (0.83-4.51); Lymphocyte % 23.9 % (19-41); Mean Corp Hgb Conc 33.6 g/dL (32-36); Mean Corpuscular Hgb 31.3 pg (27.0-32.0); Mean Platelet Vol. 11.2 fl (6.2-12.0); Monocyte# 0.88 X10^3/uL; Monocyte% 9.8 % (0-10); NRBC Flagged by Analyzer 0 % (0-5); Neutrophil # 5.63 X10^3/uL (2.7-7.7); Platelet Count 227 K/mm3 (150-450); RBC Distribution Width CV 12.6 % (11.6-14.6); RBC Distribution Width SD 43.1 fl (35.1-43.9); Red Blood Count 3.71 M/mm3 (4.2-5.4)
[2022-01-30 08:03] LABS: Erythrocyte Sedimentation Rate 50 mm/hr (0-30)
[2022-01-30 08:07] LABS: ALB/GLOB Ratio 0.6 RATIO (0.9-2.4); AST(SGOT) 12 U/L (15-37); Alanine Aminotransfer ALT/SGPT 15 U/L (13-56); Albumin, Serum 2.7 g/dL (3.2-5.0); Alkaline Phosphatase 192 U/L (45-117); Anion Gap 8 (5-15); BUN 54 mg/dL (7-18); BUN/Creat Ratio 23.5 RATIO (10-20); Calcium,Total 8.8 mg/dL (8.5-10.1); Chloride 106 mmol/L (98-107); EST Glomerular Filtration Rate 22 mL/min (>60); Est Glom Filt Rate - Afr Amer 27 mL/min (>60); Globulin 4.6 g/dL (2.2-4.2); Glucose 171 mg/dL (74-106); Potassium 4.5 mmol/L (3.5-5.1); Protein, Total 7.3 g/dL (6.4-8.2); Sodium Level 138 mmol/L (136-145)
[2022-01-30 08:29] LABS: Hemoglobin A1c 7.9 % (3.8-5.6)
== END ==
LOC: OLS.SW 05:00
PROVIDERS: PCP Internal Medicine; Referring Provider Internal Medicine; Visit Provider Internal Medicine
DX: L97.509 Non-pressure chronic ulcer of other part of unspecified foot with unspecified severity (principal); E11.621 Type 2 diabetes mellitus with foot ulcer; E78.5 Hyperlipidemia, unspecified
CPT/HCPCS: 36415; 80053; 83036; 85025; 85652; 86140

== ENCOUNTER → 2022-02-06 | Outpatient (REF) | payer MEDICARE, MEDICAID, SELFPAY ==
[2022-02-06 08:08] LABS: Erythrocyte Sedimentation Rate 68 mm/hr (0-30)
[2022-02-06 08:10] LABS: Absolute Lymphocyte Count 1.84 X10^3/uL (0.83-4.51); Absolute Neutrophil Count 6.4 X10^3/uL (2.0-7.7); Basophil# 0.02 X10^3/uL; Basophil% 0.2 % (0-1); Eosinophil# 0.23 X10^3/uL; Eosinophils% 2.5 % (0-5); Hematocrit 35.1 % (37-47); Hemoglobin 11.1 g/dL (12.0-15.0); Lymphocyte # 1.84 X10^3/ul (0.83-4.51); Lymphocyte % 19.7 % (19-41); Mean Corp Hgb Conc 31.6 g/dL (32-36); Mean Corpuscular Volume 94.9 fL (81-99); Mean Platelet Vol. 10.9 fl (6.2-12.0); Monocyte# 0.84 X10^3/uL; NRBC Flagged by Analyzer 0 % (0-5); Neutrophil # 6.36 X10^3/uL (2.7-7.7); Platelet Count 241 K/mm3 (150-450); RBC Distribution Width CV 12.5 % (11.6-14.6); RBC Distribution Width SD 43.5 fl (35.1-43.9); White Blood Count 9.4 K/mm3 (4.4-11.0)
[2022-02-06 08:27] LABS: ALB/GLOB Ratio 0.5 RATIO (0.9-2.4); AST(SGOT) 18 U/L (15-37); Alanine Aminotransfer ALT/SGPT 16 U/L (13-56); Albumin, Serum 2.6 g/dL (3.2-5.0); Alkaline Phosphatase 192 U/L (45-117); Anion Gap 8 (5-15); BUN 59 mg/dL (7-18); BUN/Creat Ratio 28.2 RATIO (10-20); Calcium,Total 8.5 mg/dL (8.5-10.1); Chloride 108 mmol/L (98-107); Creatinine, Serum 2.09 mg/dL (0.55-1.02); EST Glomerular Filtration Rate 25 mL/min (>60); Est Glom Filt Rate - Afr Amer 30 mL/min (>60); Globulin 4.8 g/dL (2.2-4.2); Glucose 189 mg/dL (74-106); Protein, Total 7.4 g/dL (6.4-8.2); Sodium Level 137 mmol/L (136-145)
== END ==
LOC: OLS.SW 05:00
PROVIDERS: PCP Internal Medicine; Visit Provider Internal Medicine
DX: T14.8XXA Other injury of unspecified body region, initial encounter (principal); Z79.899 Other long term (current) drug therapy
CPT/HCPCS: 36415; 80053; 83036; 85025; 85652; 86140

== ENCOUNTER 2022-02-12 09:15 | Outpatient (RCR) | payer MEDICARE, MEDICAID, SELFPAY ==
[2022-01-29 08:24] VITALS: BP 97/55; PULSE 47; TEMP 35.5; BMI 25.0
--- NOTE | 2022-01-29 08:48 | WC ---
PT UNABLE TO ANSWER NUTRITIONAL ASSESSMT QUESTIONS
--- NOTE | 2022-01-29 12:53 | PCM.WC.HP ---
History of Present Illness Date of Service: 01/29/22 Chief Complaint: Non healing Left Foot Ulcer History of Wound: Ms. Serna is a 76yo currently residing in a long-term who was referred here by long-term physician due to nonhealing left foot ulcer. She states that she is not sure how long it its been there but believes that it was noted by her facility physician a month ago. Is not aware of any preceding injury. Care has been offered at her facility without significant change or improvement. History of diabetes mellitus type she is unsure of how well her diabetes is controlled. She report significant pain at the site but no chills, fever, nausea, vomiting or change in bowel habit., [facility] Medical History (Updated 01/29/22 @ 13:[address] Kayode Florez MD) Afib Atherosclerotic heart disease [place] coronary artery w/angina pectoris Chronic kidney disease (CKD) Confusion COVID-19 Diabetic foot ulcer associated with type 2 diabetes mellitus Essential (primary) hypertension HCAP (healthcare-associated pneumonia) Hypoxemia Nicotine dependence Nicotine dependence in remission NSTEMI (non-ST elevated myocardial infarction) (04/22/19) Parkinson disease Pneumonia Sepsis Type 2 diabetes mellitus Unstable angina Home Medications atorvastatin 40 mg tablet 80 mg PO QHS cholesterol 04/22/19 [History Last Taken 04/21/19] acetaminophen 325 mg capsule 650 mg PO Q4H PRN PRN Pain Or Fever 08/11/19 [History Last Taken Unknown] aluminum-mag hydroxide-simethicone 400 mg-400 mg-40 mg/5 mL oral susp 30 ml PO Q4H PRN PRN GI DISTRESS 08/11/19 [History Last Taken Unknown] bisacodyl 10 mg rectal suppository 10 mg MD DAILY PRN PRN Constipation 08/11/19 [History Last Taken Unknown] dextrose 40 % oral gel 1 dose PO X1 PRN Hypoglycemia 08/11/19 [History Last Taken Unknown] docusate sodium 100 mg capsule 200 mg PO BID 08/11/19 [History Last Taken Unknown] fluoxetine 10 mg capsule 10 mg PO DAILY 08/11/19 [History Last Taken Unknown] glucagon (human recombinant) 1 mg solution for injection 1 mg IJ X1 PRN Hypoglycemia 08/11/19 [History Last Taken Unknown] glycerin (child) 1 ea MD X1 PRN Constipation 08/11/19 [History Last Taken Unknown] guaifenesin 100 mg/5 mL oral liquid 10 ml PO Q4H PRN PRN Congestion 08/11/19 [History Last Taken Unknown] insulin lispro 100 unit/mL subcutaneous solution 5 unit SQ BID 08/11/19 [History Last Taken Unknown] magnesium hydroxide 400 mg/5 mL oral suspension 30 ml PO DAILY PRN PRN Constipation 08/11/19 [History Last Taken Unknown] melatonin 3 mg tablet 3 mg PO QHS 08/11/19 [History Last Taken Unknown] sodium phosphates 19 gram-7 gram/118 mL enema 120 ml RECTAL X1 PRN Constipation 08/11/19 [History Last Taken Unknown] acetaminophen 650 mg rectal suppository 650 mg MD Q4H PRN PRN fever/pain 09/02/19 [History Last Taken Unknown] carbidopa 25 mg-levodopa 100 mg tablet 1 tab PO TIDAC 09/02/19 [History Last Taken Unknown] furosemide 20 mg tablet 20 mg PO SUTUTHSA 09/02/19 [History Last Taken Unknown] polyethylene glycol 3350 17 gram oral powder packet 17 g PO DAILY PRN PRN Constipation 09/02/19 [History Last Taken Unknown] ferrous sulfate 325 mg (65 mg iron) tablet 325 mg PO 1200,1700 09/05/19 [Rx Last Taken Unknown] pantoprazole 40 mg tablet,delayed release 40 mg PO BID 09/05/19 [Rx Last Taken Unknown] apixaban 5 mg tablet 5 mg PO BID 10/09/19 [History Last Taken Unknown] carvedilol 6.25 mg tablet 6.25 mg PO BID 01/01/20 [History Last Taken Unknown] amlodipine 2.5 mg tablet 2.5 mg PO DAILY #90 tabs 02/06/21 [Rx Last Taken Unknown] doxycycline monohydrate 100 mg capsule 100 mg PO BID #14 CAPSULES 12/30/21 [Rx Last Taken Unknown] furosemide 20 mg tablet (Lasix) 20 mg PO MOWEFR 01/29/22 [History Last Taken Unknown] insulin glargine 100 unit/mL (3 mL) subcutaneous pen (Lantus Solostar U-100 Insulin) 12 unit subcut QPM 01/29/22 [History Last Taken Unknown] nystatin 100,000 unit/gram topical powder 1 applic topical TID 01/29/22 [History Last Taken Unknown] Allergy/AdvReac Type Severity Reaction Status Date / Time amantadine Allergy PT UNABLE Verified 01/29/22 08:57 TO RESPOND-NEEDS F/U famotidine Allergy Other Verified 01/19/22 15:58 nitrofurantoin Allergy PT UNABLE Verified 01/29/22 08:57 [From Macrobid] TO RESPOND-NEEDS F/U Penicillins [PCN] Allergy PT UNABLE Verified 01/29/22 08:57 TO RESPOND-NEEDS F/U povidone-iodine Allergy PT UNABLE Verified 01/29/22 08:57 TO RESPOND-NEEDS F/U shellfish derived Allergy Anaphylaxis Verified 01/29/22 08:57 Sulfa (Sulfonamide Allergy PT UNABLE Verified 01/29/22 08:57 Antibiotics) TO RESPOND-NEEDS F/U Family History Mother Colon cancer Father COPD (chronic obstructive pulmonary disease) Surgical History History of coronary artery bypass graft (05/02/19) History of left heart catheterization (04/23/19) Social History household members: none housing: long-term Smoking Status: Former smoker how long ago did patient quit smoking: < 1 year ago alcohol intake: never substance use type: does not use caffeine: Yes Type: coffee ROS Constitutional Constitutional: Denies fatigue, frequent falls, headache(s), lethargy, malaise, night sweats or poor appetite Eyes Eyes: Denies blind spots, bloody eye, blurry vision, change in eye color, discharge from eye(s), discongugate gaze, double vision, floaters, foreign body or halo effect ENT HEENT: Denies change in voice, dental pain, dysphagia, epistaxis, facial pain, foreign body in nose, headache(s), hoarseness, lip swelling, nasal discharge, neck pain or sinus pressure Cardiovascular Cardiovascular: Denies bluish discoloration of hand/feet, chest pain at rest, chest pain with activity, claudication, clubbing, cold extremities, easily tiring during activity or erythema on extremities Respiratory/Chest Respiratory/Chest: Denies dusky skin, dyspnea on exertion, excessive phlegm production, hemoptysis, hoarseness, jaimee-oral cyanosis or snoring Gastrointestinal Gastrointestinal: Denies belching, bloating, coffee ground emesis, constipation, cramping, diarrhea, dry heaves or early satiety Genitourinary Genitourinary: Denies abdominal discomfort, burning urination, difficulty urinating, dysuria or flank pain Musculoskeletal Musculoskeletal: Denies joint swelling, muscle cramps, muscle spasms, muscle weakness, tingling or tremors Integumentary Integumentary: Denies change in pigmentation, changing lesions, erythema, hirsutism, jaundice, nail changes or pruritus Neurologic Neurologic: Denies confusion, convulsions, disequilibrium, dizziness, focal weakness, frequent falls, headache(s) or memory loss Psychiatric Psychiatric: Denies change in appetite, confusion, homicidal ideation, hopelessness, irritability, panic attacks, paranoia or suicidal thoughts Endocrine Endocrinology: Denies excessive sweating, fatigue, flushing, heat intolerance, increase in ring/shoe/hat size, palpitations or polydipsia Hematologic/Lymphatic Hematologic/Lymphatic: Denies lymphadenopathy Allergic/Immunologic Allergic/Immunologic: Denies lip swelling, throat swelling, tongue swelling, hives, urticaria, eczemia, wheezing or asthma Vital Signs Vital Signs Vital Signs: 01/29/22 08:24 Temperature 96 F L Temperature Source Temporal Pulse Rate 47 L Blood Pressure 97/55 L Blood Pressure Mean 69 Blood Pressure Source Monitor Blood Pressure Position Sitting Blood Pressure Location Left Forearm Weight Weight: 155 lb 8 oz Body Mass Index (BMI) 25.0 Physical Exam Const alert, oriented x3 and no apparent distress General Appearance: cooperative and comfortable HEENT normocephalic, head/scalp atraumatic and hearing grossly normal bilaterally Eyes EOMs intact bilaterally Neck full ROM General: normal visual inspection Resp normal respiratory effort and normal air movement Effort and Inspection: able to speak in complete sentences Cardio regular rate, regular rhythm, S1 normal heart sound and S2 normal heart sound GI soft to palpation, non-tender and non-distended Skin Wounds: wounds noted Neuro oriented x3, CN's II-XII intact bilaterally, moves all extremities and no focal motor deficits Psych mental status grossly normal and thought process normal Appearance: grossly normal Attitude: calm Debridement Note Debridement Note Post-Debridement Measurements and Additional Note: Post-Debridement Measurements/Treatment WC - Nurse 1 - General Ulcer Assessment Start: 01/29/22 08:24 Freq: Status: Active Protocol: [email or web address].LOWEXT Activity Type Activity Date Activity User E-sign Co-sign Detail Recorded Client Recorded Date Recorded By Document 01/29/22 08:24 [facility] [id number] 01/29/22 08:46 [facility] 01/29/22 08:24 - Today's Visit Information Type of service Initial Visit Arrival Mode Wheelchair Transfer Assistance None Patient Identification Verified (Name & Yes ) Patient Requires Transmission-Based No Precautions Height and Weight Height 5 ft 6 in Weight 155 lb 8 oz Weight in Pounds 155.5 lbs Weight Measurement Method Halfway Body Mass Index (BMI) 25.0 BMI Classification Overweight BSA - Khalif 1.80 Vital Signs Temperature (97.8 F-99.1 F) 96 F L Temperature Source Temporal Pulse Rate (60-100) 47 L Pulse Location Monitor Blood Pressure (90/60-120/80) 97/55 L Blood Pressure Mean 69 Source Monitor Position Sitting Blood Pressure Location Left Forearm History Since Last Visit- (Skip if this is Patient's initial visit) Left Footwear Other Footwear (Comment) Right Footwear Other Footwear (Comment) Other Footwear socks ble Pain Scale: 0-10 Numeric Is Patient Pain Free? Yes wound -Description Dull -Intensity 1 -Duration (hours) Chronic -Pain Behavior No Change in Behavior -Pain Aggravating Factors Sitting -Alleviating Factors/Interventions Distraction, Will continue to monitor, Patient denies need for intervention, Emotional Support Lower Extremity Assessment/ Foot Assessment/ Toe Nail Assessment Left -Posterior Tibial Palpable No -Posterior Tibial Doppler Monophasic -Dorsalis Pedis Palpable Yes -Dorsalis Pedis Doppler Monophasic -Extremity Color Pale -Hair Growth on Legs No -Hair Growth on Toes No -Temperature of Extremity Warm -Capillary Refill Less than 3 Seconds -Other Deformity No -Prior Foot Ulcer No -Charcot Joint No -Prior Amputation No -Thick Yes -Discolored Yes -Deformed No -Improper Length & Hygeine Yes Right -Posterior Tibial Palpable No -Posterior Tibial Doppler Inaudible -Dorsalis Pedis Palpable No -Dorsalis Pedis Doppler Monophasic -Extremity Color Pale -Hair Growth on Legs No -Hair Growth on Toes No -Temperature of Extremity Cool -Other Deformity No -Prior Foot Ulcer No -Charcot Joint No -Prior Amputation No -Thick Yes -Discolored Yes -Deformed No -Improper Length & Hygeine Yes Neuropathy Assessment Feet - Top Side and Bottom <Entered> (a) Communication Assessment Preferred language [place] Photo Lab Technician Required No Able to Read No Able to Write No Communication Tools None Right Hearing Abillity Normal Left Hearing Abillity Normal Visual Assistive Devices Glasses Teaching Assessment Preferences Verbal,Written, Audio/Visual, Demonstration Barriers to Learning Knowledge Deficit, Decreased Motivation Readiness To Learn Fair Willingness to Engage in Self Management Low Activies Readiness to Engage in Self Management Low Activities Anxiety Level Calm Cooperation Cooperative Perception Confused Interest in Health Problem Uninterested Education Importance Acknowledges Need Does Patient Smoke tobacco or other No substances Smoking Status Former smoker Is Patient Diabetic Yes Functional Assessment Recent Decline in Ability to Perform Ambulation 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 Cultural/Buddhism Needs that may affect No Treatment Plan Teaching: Wound Center *Welcome to the Wound Center -Person Taught Patient -Teaching Method Discussion -Response to teaching Verbalize understanding, Reinforcement needed Welcome to the Wound Care Center [place] (a) 1 - + WC - Nurse 1 - General Ulcer Measurement Start: 01/29/22 08:24 Freq: Status: Active Protocol: Activity Type Activity Date Activity User E-sign Co-sign Detail Recorded Client Recorded Date Recorded By Document 01/29/22 08:24 [facility] [id number] 01/29/22 08:46 [facility] 01/29/22 08:24 Wound Center Nurse 1 #2- L DORSAL FOOT -Combined with other wound No -Current Size (cm) - Length 1.1 -Current Size (cm) - Width 1 -Current Size (cm) - Depth 0.1 -Total Square Cm 1.1 -Date of Last Picture (Recall this 01/29/22 field) -Photo Taken Yes -Epithelialization None Present -Tunneling No -Undermining/Tunneling No -Circular Undermining No -Exudate Amt None Present -Wound Margin Distinct, Outline Attached -Granulation Amt None Present (0 %) -Slough/Fibrin Yes -Necrosis Amt Large (67-100%) -Necrotic Tissue Type Adherent Slough -Texture (Jaimee-wound Skin Appearance) Assessed, Scarring -Moisture (Jaimee-wound Skin Appearance) Assessed -Color (Jaimee-wound Skin Appearance) Assessed, Erythema -Temperature (Jaimee-wound Skin No Abnormality Appearance) (Pt Warm) -Tenderness on Palpation (Jaimee-wound Yes Skin Appearance) -Ulcer Cleansing Soap and Water -Foul Odor after Cleansing No -Anesthetic Used 5% Lidocaine Gel #1- L LAT FOOT -Combined with other wound No -Current Size (cm) - Length 2 -Current Size (cm) - Width 1.6 -Current Size (cm) - Depth 0.3 -Total Square Cm 3.2 -Date of Last Picture (Recall this 01/29/22 field) -Photo Taken Yes -Epithelialization None Present -Tunneling No -Undermining/Tunneling No -Circular Undermining No -Exudate Amt Medium -Exudate Type Serosanguineous -Wound Margin Distinct, Outline Attached -Granulation Amt None Present (0 %) -Slough/Fibrin Yes -Necrosis Amt Large (67-100%) -Necrotic Tissue Type Adherent Slough -Texture (Jaimee-wound Skin Appearance) Assessed, Localized Edema ,Scarring -Moisture (Jaimee-wound Skin Appearance) Assessed -Color (Jaimee-wound Skin Appearance) Assessed, Erythema -Temperature (Jaimee-wound Skin No Abnormality Appearance) (Pt Warm) -Tenderness on Palpation (Jaimee-wound Yes Skin Appearance) -Ulcer Cleansing Soap and Water -Foul Odor after Cleansing No -Anesthetic Used 5% Lidocaine Gel Lower Limb Edema Present Yes Right Ankle (cm) 22.8 Right Foot (cm) 39.1 Left Calf (cm) 34 Left Ankle (cm) 23 WC - Nurse 2 - General Ulcer CM Notes Start: 01/29/22 08:24 Freq: Status: Active Protocol: Activity Type Activity Date Activity User E-sign Co-sign Detail Recorded Client Recorded Date Recorded By Document 01/29/22 09:16 MW [id number] 01/29/22 09:23 MW 01/29/22 09:16 Wound Center Nurse 2 #2- L DORSAL FOOT -Time 09:20 -Correct Patient Yes -Correct Side, Site, Position Yes -Correct Procedure Yes -Procedure Performed No -Post Debridement (cm) - Length 0 -Post Debridement (cm) - Width 0 -Post Debridement (cm) - Depth 0 -Total Square (Post) (cm) 0 -Wound/Ulcer Outcome Healed- Epithelialized #1- L LAT FOOT -Time 09:20 -Correct Patient Yes -Correct Side, Site, Position Yes -Correct Procedure Yes -Procedure Performed No -Tunneling No -Undermining/Tunneling No -Circular Undermining No -Wound/Ulcer Outcome Not Healed -Bleeding Controlled with NA Pain Scale: 0-10 Numeric Is Patient Pain Free? Yes WC - Nurse 3 - General Ulcer D/C NN Start: 01/29/22 08:24 Freq: Status: Active Protocol: Activity Type Activity Date Activity User E-sign Co-sign Detail Recorded Client Recorded Date Recorded By Document 01/29/22 09:37 [facility] [id number] 01/29/22 09:38 [facility] 01/29/22 09:37 Wound Care Nurse 3 #1- L LAT FOOT -Ulcer Cleansing Rinsed/ Irrigated with Saline -Foul Odor after Cleansing No -Primary Dressing Applied NonAdherent Contact Layer -Other Dressing HYDROGEL -Primary Dressing Covered/Secured with Dry Gauze & Roll Gauze, Secured with Tape -Other Covering ABD Treatment Response Procedure Tolerated Well Pain Scale: 0-10 Numeric Is Patient Pain Free? Yes WC - Visit Discharge Discharge Condition Stable Ambulatory Status Wheelchair Transportation ECF Facility Type Business Asst Care Facility Charges/Coding Visit Charges Office Visits / Consults: [id number] OV L4 New Assessment/Plan Assessment/Plan (1) Diabetic foot ulcer associated with type 2 diabetes mellitus: CODE(S): E11.621 - Type 2 diabetes mellitus with foot ulcer; L97.509 - Non-pressure chronic ulcer of other part of unspecified foot with unspecified severity QUALIFIERS: Diabetic foot ulcer location: other Laterality: left Non-pressure ulcer stage: with fat layer exposed Qualified Code(s): E11.621 - Type 2 diabetes mellitus with foot ulcer; L97.522 - Non-pressure chronic ulcer of other part of left foot with fat layer exposed (2) Nicotine dependence in remission: CODE(S): F17.201 - Nicotine dependence, unspecified, in remission QUALIFIERS: Nicotine product type: cigarettes Qualified Code(s): F17.211 - Nicotine dependence, cigarettes, in remission (3) Coronary artery disease: CODE(S): I25.10 - Atherosclerotic heart disease of [place] coronary artery without angina pectoris QUALIFIERS: Coronary Disease-Associated Artery/Lesion type: [place] artery [place] vs. transplanted heart: [place] heart Associated angina: without angina Qualified Code(s): I25.10 - Atherosclerotic heart disease of [place] coronary artery without angina pectoris (4) Chronic kidney disease (CKD): CODE(S): N18.9 - Chronic kidney disease, unspecified QUALIFIERS: Chronic kidney disease stage: stage 4 (severe) Qualified Code(s): N18.4 - Chronic kidney disease, stage 4 (severe) PLAN: Plan Left lateral foot ulceration which has been present for possibly a month or more. Surrounding erythema, differential warmth and tenderness. Has been on antibiotics prescribed by her facility physician. Diabetes mellitus type 2, insulin-dependent. ? Control. Debridement not done today due to significant tenderness. X-ray, CBC, CMP, ESR, CRP and A1c ordered. Will review. Paz recommended, apply nickel thick daily, cover with Adaptic and gauze. Follow-up in a week and possibly sharp debridement will be done. Optimal diabetes control, increase protein intake, vitamin C, D and zinc recommended. Offloading also very strongly recommended I suspect, pressure also has a role to play due to location. Her questions were answered and she was advised to call with any further questions or concerns. Follow-up in a week or sooner if needed. This note was generated with [employer] dictation software. It may contain incorrect words, spelling, and punctuation that were not noted in checking the note before signing.
[2022-02-05 09:21] VITALS: RESP 16; TEMP 35.9; BMI 25.0
--- NOTE | 2022-02-05 10:51 | PCM.WC.PN ---
History of Present Illness Date of Service: 02/05/22 Chief Complaint: Non healing Left Foot Ulcer History of Wound: Ms. Serna is a 76yo currently residing in a [facility] who was referred here by [facility] physician due to nonhealing left foot ulcer. She states that she is not sure how long it its been there but believes that it was noted by her facility physician a month ago. Is not aware of any preceding injury. Care has been offered at her facility without significant change or improvement. History of diabetes mellitus type she is unsure of how well her diabetes is controlled. She report significant pain at the site but no chills, fever, nausea, vomiting or change in bowel habit., Progress of Wound: Has been using Santyl but inconsistently applied by [facility] staff. She states that she has had no Santyl applied in 4 days. Some improvement in eschar but pain and swelling persists. Did not get labs or imaging done which was ordered. Objective Data Objective Data Vital Signs: Vital Signs Temp Pulse Resp BP O2 Del Method 96.7 F L 47 L 16 97/55 L Room Air 02/05/22 09:21 01/29/22 08:24 02/05/22 09:21 01/29/22 08:24 02/05/22 09:21 Oxygen Delivery Method Room Air Weight: 155 lb 8 oz Body Mass Index (BMI) 25.0 Charges/Coding Visit Charges Office Visits / Consults: [id number] OV L3 Est Physical Exam Const alert, oriented x3 and no apparent distress General Appearance: cooperative and comfortable HEENT normocephalic, head/scalp atraumatic and hearing grossly normal bilaterally Eyes EOMs intact bilaterally Neck full ROM General: normal visual inspection Resp normal respiratory effort Effort and Inspection: able to speak in complete sentences Skin Wounds: wounds noted Neuro oriented x3, CN's II-XII intact bilaterally, moves all extremities and no focal motor deficits Psych mental status grossly normal and thought process normal Appearance: grossly normal Attitude: calm Debridement Note Debridement Note Post-Debridement Measurements and Additional Note: Post-Debridement Measurements/Treatment WC - Nurse 1 - General Ulcer Assessment Start: 01/29/22 08:24 Freq: Status: Active Protocol: [email or web address].KATE Activity Type Activity Date Activity User E-sign Co-sign Detail Recorded Client Recorded Date Recorded By Document 01/29/22 08:24 [facility] [id number] 01/29/22 08:46 [facility] Document 02/05/22 09:21 [facility] [id number] 02/05/22 09:29 BM 01/29/22 02/05/22 08:24 09:21 WC - Today's Visit Information Type of service Initial Visit 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 ) Arrival Mode Wheelchair Wheelchair Transfer Assistance None Other Transfer Assist (Other) 2 Patient Identification Verified (Name & Yes Yes ) Patient Requires Transmission-Based No No Precautions Height and Weight Height 5 ft 6 in Weight 155 lb 8 oz Weight in Pounds 155.5 lbs Weight Measurement Method Detention Body Mass Index (BMI) 25.0 25.0 BMI Classification Overweight Overweight BSA - Khalif 1.80 Vital Signs Temperature (97.8 F-99.1 F) 96 F L 96.7 F L Temperature Source Temporal Temporal Pulse Rate (60-100) 47 L Pulse Location Monitor Respiratory Rate (12-18) 16 Respiratory rate source Observation Oxygen Delivery Method Room Air Blood Pressure (90/60-120/80) 97/55 L Blood Pressure Mean (mm Hg) 69 Source Monitor Position Sitting Blood Pressure Location Left Forearm Comment pt refused bp, said it was too tight History Since Last Visit- (Skip if this is Patient's initial visit) Left Footwear Other Footwear (Comment) Right Footwear Other Footwear (Comment) Other Footwear socks ble socks both feet Pain Scale: 0-10 Numeric Is Patient Pain Free? Yes Yes wound -Description Dull -Intensity 1 -Duration (hours) Chronic -Pain Behavior No Change in Behavior -Pain Aggravating Factors Sitting -Alleviating Factors/Interventions Distraction, Will continue to monitor, Patient denies need for intervention, Emotional Support Lower Extremity Assessment/ Foot Assessment/ Toe Nail Assessment Left -Posterior Tibial Palpable No -Posterior Tibial Doppler Monophasic -Dorsalis Pedis Palpable Yes -Dorsalis Pedis Doppler Monophasic -Extremity Color Pale -Hair Growth on Legs No -Hair Growth on Toes No -Temperature of Extremity Warm -Capillary Refill Less than 3 Seconds -Other Deformity No -Prior Foot Ulcer No -Charcot Joint No -Prior Amputation No -Thick Yes -Discolored Yes -Deformed No -Improper Length & Hygeine Yes Right -Posterior Tibial Palpable No -Posterior Tibial Doppler Inaudible -Dorsalis Pedis Palpable No -Dorsalis Pedis Doppler Monophasic -Extremity Color Pale -Hair Growth on Legs No -Hair Growth on Toes No -Temperature of Extremity Cool -Other Deformity No -Prior Foot Ulcer No -Charcot Joint No -Prior Amputation No -Thick Yes -Discolored Yes -Deformed No -Improper Length & Hygeine Yes Neuropathy Assessment Feet - Top Side and Bottom <Entered> (a) Communication Assessment Preferred language Micronesian Publishing Specialist Required No Able to Read No Able to Write No Communication Tools None Right Hearing Abillity Normal Left Hearing Abillity Normal Visual Assistive Devices Glasses Teaching Assessment Preferences Verbal,Written, Audio/Visual, Demonstration Barriers to Learning Knowledge Deficit, Decreased Motivation Readiness To Learn Fair Willingness to Engage in Self Management Low Activies Readiness to Engage in Self Management Low Activities Anxiety Level Calm Cooperation Cooperative Perception Confused Interest in Health Problem Uninterested Education Importance Acknowledges Need Does Patient Smoke tobacco or other No substances Smoking Status Former smoker Is Patient Diabetic Yes Functional Assessment Recent Decline in Ability to Perform Ambulation Culture/Roman Catholic/Supervisor Fine Grading Cultural/Roman Catholic Needs that may affect No Treatment Plan Teaching: Wound Center *Welcome to the Wound Center -Person Taught Patient -Teaching Method Discussion -Response to teaching Verbalize understanding, Reinforcement needed Welcome to the Wound Care Center Micronesian (a) 1 - + WC - Nurse 1 - General Ulcer Measurement Start: 01/29/22 08:24 Freq: Status: Active Protocol: Activity Type Activity Date Activity User E-sign Co-sign Detail Recorded Client Recorded Date Recorded By Document 01/29/22 08:24 [facility] [id number] 01/29/22 08:46 [facility] Document 02/05/22 09:21 [facility] [id number] 02/05/22 09:29 [facility] 01/29/22 02/05/22 08:24 09:21 Wound Center Nurse 1 #3 left dorsal foot -Combined with other wound No -Current Size (cm) - Length 1.1 -Current Size (cm) - Width 1 -Current Size (cm) - Depth 0.1 -Total Square Cm 1.1 -Date of Last Picture (Recall this 01/29/22 field) -Photo Taken Yes -Epithelialization None Present -Tunneling No -Undermining/Tunneling No -Circular Undermining No -Exudate Amt None Present -Wound Margin Distinct, Outline Attached -Granulation Amt None Present (0 %) -Slough/Fibrin Yes -Necrosis Amt Large (67-100%) -Necrotic Tissue Type Adherent Slough -Texture (Jaimee-wound Skin Appearance) Assessed, Scarring -Moisture (Jaimee-wound Skin Appearance) Assessed -Color (Jaimee-wound Skin Appearance) Assessed, Erythema -Temperature (Jaimee-wound Skin No Abnormality Appearance) (Pt Warm) -Tenderness on Palpation (Jaimee-wound Yes Skin Appearance) -Ulcer Cleansing Soap and Water -Foul Odor after Cleansing No -Anesthetic Used 5% Lidocaine Gel #2 left lateral foot -Combined with other wound No No -Current Size (cm) - Length 2 2 -Current Size (cm) - Width 1.6 1.7 -Current Size (cm) - Depth 0.3 0.4 -Total Square Cm 3.2 3.4 -Date of Last Picture (Recall this 01/29/22 02/05/22 field) -Photo Taken Yes Yes -Epithelialization None Present None Present -Tunneling No No -Undermining/Tunneling No No -Circular Undermining No No -Exudate Amt Medium Large -Exudate Type Serosanguineous Serosanguineous -Wound Margin Distinct, Distinct, Outline Outline Attached Attached -Granulation Amt None Present (0 None Present (0 %) %) -Slough/Fibrin Yes Yes -Necrosis Amt Large (67-100%) Large (67-100%) -Necrotic Tissue Type Adherent Slough Eschar -Texture (Jaimee-wound Skin Appearance) Assessed, Assessed, Localized Edema Localized Edema ,Scarring ,Scarring -Moisture (Jaimee-wound Skin Appearance) Assessed Assessed -Color (Jaimee-wound Skin Appearance) Assessed, Assessed, Erythema Erythema -Temperature (Jaimee-wound Skin No Abnormality No Abnormality Appearance) (Pt Warm) (Pt Warm) -Tenderness on Palpation (Jaimee-wound Yes Yes Skin Appearance) -Ulcer Cleansing Soap and Water Soap and Water -Foul Odor after Cleansing No No -Anesthetic Used 5% Lidocaine 5% Lidocaine Gel Gel Lower Limb Edema Present Yes Right Ankle (cm) 22.8 Right Foot (cm) 39.1 Left Calf (cm) 34 Left Ankle (cm) 23 WC - Nurse 2 - General Ulcer CM Notes Start: 01/29/22 08:24 Freq: Status: Active Protocol: Activity Type Activity Date Activity User E-sign Co-sign Detail Recorded Client Recorded Date Recorded By Document 01/29/22 09:16 MW [id number] 01/29/22 09:23 MW Document 02/05/22 10:07 MW [id number] 02/05/22 10:14 MW 01/29/22 02/05/22 09:16 10:07 Wound Center Nurse 2 #3 left dorsal foot -Time 09:20 -Correct Patient Yes -Correct Side, Site, Position Yes -Correct Procedure Yes -Procedure Performed No -Post Debridement (cm) - Length 0 -Post Debridement (cm) - Width 0 -Post Debridement (cm) - Depth 0 -Total Square (Post) (cm) 0 -Wound/Ulcer Outcome Healed- Epithelialized #2 left lateral foot -Time 09:20 10:07 -Correct Patient Yes Yes -Correct Side, Site, Position Yes Yes -Correct Procedure Yes Yes -Procedure Performed No No -Tunneling No No -Undermining/Tunneling No No -Circular Undermining No No -Wound/Ulcer Outcome Not Healed Not Healed -Bleeding Controlled with NA Pain Scale: 0-10 Numeric Is Patient Pain Free? Yes Yes - Nurse 3 - General Ulcer D/C NN Start: 01/29/22 08:24 Freq: Status: Active Protocol: Activity Type Activity Date Activity User E-sign Co-sign Detail Recorded Client Recorded Date Recorded By Document 01/29/22 09:37 [facility] [id number] 01/29/22 09:38 [facility] Document 02/05/22 10:29 DL [id number] 02/05/22 10:30 DL 01/29/22 02/05/22 09:37 10:29 Wound Care Nurse 3 #2 left lateral foot -Ulcer Cleansing Rinsed/ Rinsed/ Irrigated with Irrigated with Saline Saline -Foul Odor after Cleansing No No -Primary Dressing Applied NonAdherent Contact Layer -Other Dressing HYDROGEL hydrogel -Primary Dressing Covered/Secured with Dry Gauze & Dry Gauze & Roll Gauze, Roll Gauze, Secured with Secured with Tape Tape -Other Covering ABD Treatment Response Procedure Procedure Tolerated Well Tolerated Well Pain Scale: 0-10 Numeric Is Patient Pain Free? Yes Yes WC - Visit Discharge Discharge Condition Stable Stable Ambulatory Status Wheelchair Wheelchair Transportation ECF Facility Type Detention Care Detention Care Facility Facility Orders Sent Yes Assessment/Plan Assessment/Plan (1) Diabetic foot ulcer associated with type 2 diabetes mellitus: CODE(S): E11.621 - Type 2 diabetes mellitus with foot ulcer; L97.509 - Non-pressure chronic ulcer of other part of unspecified foot with unspecified severity QUALIFIERS: Diabetic foot ulcer location: other Laterality: left Non-pressure ulcer stage: with fat layer exposed Qualified Code(s): E11.621 - Type 2 diabetes mellitus with foot ulcer; L97.522 - Non-pressure chronic ulcer of other part of left foot with fat layer exposed (2) Nicotine dependence in remission: CODE(S): F17.201 - Nicotine dependence, unspecified, in remission QUALIFIERS: Nicotine product type: cigarettes Qualified Code(s): F17.211 - Nicotine dependence, cigarettes, in remission (3) Coronary artery disease: CODE(S): I25.10 - Atherosclerotic heart disease of [place] coronary artery without angina pectoris QUALIFIERS: Coronary Disease-Associated Artery/Lesion type: [place] artery [place] vs. transplanted heart: [place] heart Associated angina: without angina Qualified Code(s): I25.10 - Atherosclerotic heart disease of [place] coronary artery without angina pectoris (4) Chronic kidney disease (CKD): CODE(S): N18.9 - Chronic kidney disease, unspecified QUALIFIERS: Chronic kidney disease stage: stage 4 (severe) Qualified Code(s): N18.4 - Chronic kidney disease, stage 4 (severe) PLAN: Plan No debridement completed today. Patient still with significant pain. Periwound erythema and swelling. No labs or imaging done which was ordered, will send instructions back to nursing facility and hopefully she gets this done as soon as possible. Continue Santyl, apply nickel thick daily, cover with Adaptic and gauze. Follow-up in a week. Optimal diabetes control, increase protein intake, vitamin C, D and zinc recommended. Offloading also very strongly recommended. I suspect, pressure also has a role to play due to location. Her questions were answered and she was advised to call with any further questions or concerns. Follow-up in a week or sooner if needed. This note was generated with [employer] software. It may contain incorrect words, spelling, and punctuation that were not noted in checking the note before signing.
[2022-02-12 10:06] VITALS: RESP 16; TEMP 35.9; BMI 25.0
--- NOTE | 2022-02-12 12:44 | PCM.WC.PN ---
History of Present Illness Date of Service: 02/12/22 Chief Complaint: Non healing Left Foot Ulcer History of Wound: Ms. Serna is a 76yo currently residing in a long-term who was referred here by long-term physician due to nonhealing left foot ulcer. She states that she is not sure how long it its been there but believes that it was noted by her facility physician a month ago. Is not aware of any preceding injury. Care has been offered at her facility without significant change or improvement. History of diabetes mellitus type she is unsure of how well her diabetes is controlled. She report significant pain at the site but no chills, fever, nausea, vomiting or change in bowel habit., Progress of Wound: Better application of Santyl over the past week. Patient states that she was doing it by herself. Good breakdown of eschar/necrotic tissue. Objective Data Objective Data Vital Signs: Vital Signs Temp Pulse Resp BP O2 Del Method 96.6 F L 47 L 16 97/55 L Room Air 02/12/22 10:06 01/29/22 08:24 02/12/22 10:06 01/29/22 08:24 02/12/22 10:06 Oxygen Delivery Method Room Air Weight: 155 lb 8 oz Body Mass Index (BMI) 25.0 Charges/Coding Visit Charges Office Visits / Consults: 68734 OV L3 Est Physical Exam Const alert, oriented x3 and no apparent distress General Appearance: cooperative and comfortable HEENT normocephalic, head/scalp atraumatic and hearing grossly normal bilaterally Eyes EOMs intact bilaterally Neck full ROM General: normal visual inspection Resp normal respiratory effort Effort and Inspection: able to speak in complete sentences Skin Wounds: wounds noted Neuro oriented x3, CN's II-XII intact bilaterally, moves all extremities and no focal motor deficits Psych mental status grossly normal and thought process normal Appearance: grossly normal Attitude: calm Debridement Note Debridement Note Post-Debridement Measurements and Additional Note: Post-Debridement Measurements/Treatment WC - Nurse 1 - General Ulcer Assessment Start: 01/29/22 08:24 Freq: Status: Active Protocol: BRIGIDO Activity Type Activity Date Activity User E-sign Co-sign Detail Recorded Client Recorded Date Recorded By Document 01/29/22 08:24 [facility] [id number] 01/29/22 08:46 [facility] Document 02/05/22 09:21 [facility] [id number] 02/05/22 09:29 [facility] Document 02/12/22 10:06 [facility] [id number] 02/12/22 10:14 [facility] 01/29/22 02/05/22 02/12/22 08:24 09:21 10:06 WC - Today's Visit Information Type of service Initial Visit Follow-up Visit Follow-up Visit (Physician/CORN PICKER (Physician/CORN PICKER ) ) Arrival Mode Wheelchair Wheelchair Wheelchair Transfer Assistance None Other None Transfer Assist (Other) 2 Patient Identification Verified (Name & Yes Yes Yes ) Patient Requires Transmission-Based No No No Precautions Height and Weight Height 5 ft 6 in Weight 155 lb 8 oz Weight in Pounds 155.5 lbs Weight Measurement Method Assisted Body Mass Index (BMI) 25.0 25.0 25.0 BMI Classification Overweight Overweight Overweight BSA - Khalif 1.80 Vital Signs Temperature (97.8 F-99.1 F) 96 F L 96.7 F L 96.6 F L Temperature Source Temporal Temporal Temporal Pulse Rate (60-100) 47 L Pulse Location Monitor Respiratory Rate (12-18) 16 16 Respiratory rate source Observation Observation Oxygen Delivery Method Room Air Room Air Blood Pressure (90/60-120/80) 97/55 L Blood Pressure Mean (mm Hg) 69 Source Monitor Position Sitting Blood Pressure Location Left Forearm Comment pt refused bp, ATTEMPTED BP, said it was too PT SAID TOO tight PAINFUL AND REFUSED History Since Last Visit- (Skip if this is Patient's initial visit) Have you changed medications since your No last visit? Any new allergies or adverse reactions No Had a fall/change in ADL's that may No increase risk of falls Signs or symptoms of abuse and/or No neglect since last visit Have you been in the hospital since your No last visit? Has dressing in place as prescribed Yes Has compression in place as prescribed N/A Has offloadiing in place as prescribed Yes Experienced any changes in pain level or No management Left Footwear Other Footwear (Comment) Right Footwear Other Footwear (Comment) Other Footwear socks ble socks both feet NON SKID SOCKS HANNAH Pain Scale: 0-10 Numeric Is Patient Pain Free? Yes Yes Yes wound -Description Dull -Intensity 1 -Duration (hours) Chronic -Pain Behavior No Change in Behavior -Pain Aggravating Factors Sitting -Alleviating Factors/Interventions Distraction, Will continue to monitor, Patient denies need for intervention, Emotional Support Lower Extremity Assessment/ Foot Assessment/ Toe Nail Assessment Left -Posterior Tibial Palpable No -Posterior Tibial Doppler Monophasic -Dorsalis Pedis Palpable Yes -Dorsalis Pedis Doppler Monophasic -Extremity Color Pale -Hair Growth on Legs No -Hair Growth on Toes No -Temperature of Extremity Warm -Capillary Refill Less than 3 Seconds -Other Deformity No -Prior Foot Ulcer No -Charcot Joint No -Prior Amputation No -Thick Yes -Discolored Yes -Deformed No -Improper Length & Hygeine Yes Right -Posterior Tibial Palpable No -Posterior Tibial Doppler Inaudible -Dorsalis Pedis Palpable No -Dorsalis Pedis Doppler Monophasic -Extremity Color Pale -Hair Growth on Legs No -Hair Growth on Toes No -Temperature of Extremity Cool -Other Deformity No -Prior Foot Ulcer No -Charcot Joint No -Prior Amputation No -Thick Yes -Discolored Yes -Deformed No -Improper Length & Hygeine Yes Neuropathy Assessment Feet - Top Side and Bottom <Entered> (a) Communication Assessment Preferred language Swedish Manager Sterile Required No Able to Read No Able to Write No Communication Tools None Right Hearing Abillity Normal Left Hearing Abillity Normal Visual Assistive Devices Glasses Teaching Assessment Preferences Verbal,Written, Audio/Visual, Demonstration Barriers to Learning Knowledge Deficit, Decreased Motivation Readiness To Learn Fair Willingness to Engage in Self Management Low Activies Readiness to Engage in Self Management Low Activities Anxiety Level Calm Cooperation Cooperative Perception Confused Interest in Health Problem Uninterested Education Importance Acknowledges Need Does Patient Smoke tobacco or other No substances Smoking Status Former smoker Is Patient Diabetic Yes Functional Assessment Recent Decline in Ability to Perform Ambulation 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 Needs that may affect No Treatment Plan Teaching: Wound Center *Welcome to the Wound Center -Person Taught Patient -Teaching Method Discussion -Response to teaching Verbalize understanding, Reinforcement needed Welcome to the Wound Care Center Swedish (a) 1 - + WC - Nurse 1 - General Ulcer Measurement Start: 01/29/22 08:24 Freq: Status: Active Protocol: Activity Type Activity Date Activity User E-sign Co-sign Detail Recorded Client Recorded Date Recorded By Document 01/29/22 08:24 [facility] [id number] 01/29/22 08:46 [facility] Document 02/05/22 09:21 [facility] [id number] 02/05/22 09:29 [facility] Document 02/12/22 10:06 [facility] [id number] 02/12/22 10:14 [facility] 01/29/22 02/05/22 02/12/22 08:24 09:21 10:06 Wound Center Nurse 1 #3 left dorsal foot -Combined with other wound No -Current Size (cm) - Length 1.1 -Current Size (cm) - Width 1 -Current Size (cm) - Depth 0.1 -Total Square Cm 1.1 -Date of Last Picture (Recall this 01/29/22 field) -Photo Taken Yes -Epithelialization None Present -Tunneling No -Undermining/Tunneling No -Circular Undermining No -Exudate Amt None Present -Wound Margin Distinct, Outline Attached -Granulation Amt None Present (0 %) -Slough/Fibrin Yes -Necrosis Amt Large (67-100%) -Necrotic Tissue Type Adherent Slough -Texture (Jaimee-wound Skin Appearance) Assessed, Scarring -Moisture (Jaimee-wound Skin Appearance) Assessed -Color (Jaimee-wound Skin Appearance) Assessed, Erythema -Temperature (Jaimee-wound Skin No Abnormality Appearance) (Pt Warm) -Tenderness on Palpation (Jaimee-wound Yes Skin Appearance) -Ulcer Cleansing Soap and Water -Foul Odor after Cleansing No -Anesthetic Used 5% Lidocaine Gel #2 left lateral foot -Combined with other wound No No No -Current Size (cm) - Length 2 2 2.1 -Current Size (cm) - Width 1.6 1.7 1.4 -Current Size (cm) - Depth 0.3 0.4 0.3 -Total Square Cm 3.2 3.4 2.94 -Date of Last Picture (Recall this 01/29/22 02/05/22 field) -Photo Taken Yes Yes -Epithelialization None Present None Present None Present -Tunneling No No No -Undermining/Tunneling No No No -Circular Undermining No No No -Exudate Amt Medium Large Medium -Exudate Type Serosanguineous Serosanguineous Serosanguineous -Wound Margin Distinct, Distinct, Distinct, Outline Outline Outline Attached Attached Attached -Granulation Amt None Present (0 None Present (0 None Present (0 %) %) %) -Slough/Fibrin Yes Yes Yes -Necrosis Amt Large (67-100%) Large (67-100%) Large (67-100%) -Necrotic Tissue Type Adherent Slough Eschar Adherent Slough -Texture (Jaimee-wound Skin Appearance) Assessed, Assessed, Assessed, Localized Edema Localized Edema Localized Edema ,Scarring ,Scarring -Moisture (Jaimee-wound Skin Appearance) Assessed Assessed Assessed,Dry/ Scaly -Color (Jaimee-wound Skin Appearance) Assessed, Assessed, Assessed, Erythema Erythema Erythema -Temperature (Jaimee-wound Skin No Abnormality No Abnormality No Abnormality Appearance) (Pt Warm) (Pt Warm) (Pt Warm) -Tenderness on Palpation (Jaimee-wound Yes Yes Yes Skin Appearance) -Ulcer Cleansing Soap and Water Soap and Water Rinsed/ Irrigated with Saline -Foul Odor after Cleansing No No No -Anesthetic Used 5% Lidocaine 5% Lidocaine 5% Lidocaine Gel Gel Gel Lower Limb Edema Present Yes Right Ankle (cm) 22.8 Right Foot (cm) 39.1 Left Calf (cm) 34 Left Ankle (cm) 23 WC - Nurse 2 - General Ulcer CM Notes Start: 01/29/22 08:24 Freq: Status: Active Protocol: Activity Type Activity Date Activity User E-sign Co-sign Detail Recorded Client Recorded Date Recorded By Document 01/29/22 09:16 MW [id number] 01/29/22 09:23 MW Document 02/05/22 10:07 MW [id number] 02/05/22 10:14 MW Document 02/12/22 10:46 MW [id number] 02/12/22 10:47 MW 01/29/22 02/05/22 02/12/22 09:16 10:07 10:46 Wound Center Nurse 2 #3 left dorsal foot -Time 09:20 -Correct Patient Yes -Correct Side, Site, Position Yes -Correct Procedure Yes -Procedure Performed No -Post Debridement (cm) - Length 0 -Post Debridement (cm) - Width 0 -Post Debridement (cm) - Depth 0 -Total Square (Post) (cm) 0 -Wound/Ulcer Outcome Healed- Epithelialized #2 left lateral foot -Time 09:20 10:07 10:46 -Correct Patient Yes Yes Yes -Correct Side, Site, Position Yes Yes Yes -Correct Procedure Yes Yes Yes -Procedure Performed No No No -Tunneling No No No -Undermining/Tunneling No No No -Circular Undermining No No No -Wound/Ulcer Outcome Not Healed Not Healed Not Healed -Foul Odor after Cleansing No -Bioengineered Tissue No -Bleeding Controlled with NA NA -Treatment Response Procedure Tolerated Well -Offloading No Pain Scale: 0-10 Numeric Is Patient Pain Free? Yes Yes Yes - Nurse 3 - General Ulcer D/C NN Start: 01/29/22 08:24 Freq: Status: Active Protocol: Activity Type Activity Date Activity User E-sign Co-sign Detail Recorded Client Recorded Date Recorded By Document 01/29/22 09:37 [facility] [id number] 01/29/22 09:38 [facility] Document 02/05/22 10:29 DL [id number] 02/05/22 10:30 DL Document 02/12/22 10:56 [facility] [id number] 02/12/22 10:57 [facility] 01/29/22 02/05/22 02/12/22 09:37 10:29 10:56 Wound Care Nurse 3 #2 left lateral foot -Ulcer Cleansing Rinsed/ Rinsed/ Rinsed/ Irrigated with Irrigated with Irrigated with Saline Saline Saline -Foul Odor after Cleansing No No No -Primary Dressing Applied NonAdherent NonAdherent Contact Layer Contact Layer -Other Dressing HYDROGEL hydrogel HYDROGEL -Primary Dressing Covered/Secured with Dry Gauze & Dry Gauze & Dry Gauze & Roll Gauze, Roll Gauze, Roll Gauze, Secured with Secured with Secured with Tape Tape Tape -Other Covering ABD Treatment Response Procedure Procedure Procedure Tolerated Well Tolerated Well Tolerated Well Pain Scale: 0-10 Numeric Is Patient Pain Free? Yes Yes Yes - Visit Discharge Discharge Condition Stable Stable Stable Ambulatory Status Wheelchair Wheelchair Wheelchair Transportation ECF ECF Facility Type Assisted Care Mobile Service Rv Technician Care Mobile Service [facility] Technician Care Facility Facility Facility Orders Sent Yes Assessment/Plan Assessment/Plan (1) Diabetic foot ulcer associated with type 2 diabetes mellitus: CODE(S): E11.621 - Type 2 diabetes mellitus with foot ulcer; L97.509 - Non-pressure chronic ulcer of other part of unspecified foot with unspecified severity QUALIFIERS: Diabetic foot ulcer location: other Laterality: left Non-pressure ulcer stage: with fat layer exposed Qualified Code(s): E11.621 - Type 2 diabetes mellitus with foot ulcer; L97.522 - Non-pressure chronic ulcer of other part of left foot with fat layer exposed (2) Nicotine dependence in remission: CODE(S): F17.201 - Nicotine dependence, unspecified, in remission QUALIFIERS: Nicotine product type: cigarettes Qualified Code(s): F17.211 - Nicotine dependence, cigarettes, in remission (3) Coronary artery disease: CODE(S): I25.10 - Atherosclerotic heart disease of [place] coronary artery without angina pectoris QUALIFIERS: Coronary Disease-Associated Artery/Lesion type: [place] artery [place] vs. transplanted heart: [place] heart Associated angina: without angina Qualified Code(s): I25.10 - Atherosclerotic heart disease of [place] coronary artery without angina pectoris (4) Chronic kidney disease (CKD): CODE(S): N18.9 - Chronic kidney disease, unspecified QUALIFIERS: Chronic kidney disease stage: stage 4 (severe) Qualified Code(s): N18.4 - Chronic kidney disease, stage 4 (severe) PLAN: Plan No debridement completed today. Patient still with significant pain. Still has periwound erythema and mild swelling. CBC resulted and reviewed, no significant concerns. Normal white blood cell count. Slightly elevated CRP but other labs still not available. Some granulation tissue noted, continue Santyl, apply nickel thick daily, cover with Adaptic and gauze. Optimal diabetes control, increase protein intake, vitamin C, D and zinc recommended. Offloading also very strongly recommended. Her questions were answered and she was advised to call with any further questions or concerns. Follow-up in 2 weeks or sooner if needed. This note was generated with coRankation software. It may contain incorrect words, spelling, and punctuation that were not noted in checking the note before signing.
--- NOTE | 2022-02-25 15:17 | WC ---
Spoke with wound nurse at [facility]. Stated patient is refusing all treatments, including wound care, medications, and arterial study. She is now on Hospice care and requesting discharge from wound center. Will notify Dr. Florez and discharge from clinic.
== END 2022-02-25 23:59 | disposition home or self-care (01) ==
LOC: WC 09:15
PROVIDERS: PCP Internal Medicine; Visit Provider Internal Medicine
DX: E11.621 Type 2 diabetes mellitus with foot ulcer (principal); L97.522 Non-pressure chronic ulcer of other part of left foot with fat layer exposed; E11.40 Type 2 diabetes mellitus with diabetic neuropathy, unspecified; E11.22 Type 2 diabetes mellitus with diabetic chronic kidney disease; N18.4 Chronic kidney disease, stage 4 (severe); I25.119 Atherosclerotic heart disease of native coronary artery with unspecified angina pectoris; Z79.4 Long term (current) use of insulin; I12.9 Hypertensive chronic kidney disease with stage 1 through stage 4 chronic kidney disease, or unspecified chronic kidney disease; R60.0 Localized edema; F17.201 Nicotine dependence, unspecified, in remission; Z79.01 Long term (current) use of anticoagulants; Z79.899 Other long term (current) drug therapy; Z95.1 Presence of aortocoronary bypass graft
CPT/HCPCS: 99203; 99213; G0463

== ENCOUNTER → 2022-02-18 | Outpatient (CLI) | payer MEDICARE, MEDICAID, SELFPAY ==
[2022-02-17 08:00] VITALS: BMI 25.0
[2022-02-18 09:57] LABS: Hematocrit 37.7 % (37-47); Hemoglobin 11.1 g/dL (12.0-15.0); Mean Corp Hgb Conc 29.4 g/dL (32-36); Mean Corpuscular Hgb 29.7 pg (27.0-32.0); Mean Corpuscular Volume 100.8 fL (81-99); Mean Platelet Vol. 10.4 fl (6.2-12.0); Platelet Count 236 K/mm3 (150-450); Red Blood Count 3.74 M/mm3 (4.2-5.4); White Blood Count 8.4 K/mm3 (4.4-11.0)
[2022-02-18 10:11] LABS: Anion Gap 4 (5-15); BUN 73 mg/dL (7-18); BUN/Creat Ratio 31.1 RATIO (10-20); Chloride 117 mmol/L (98-107); Creatinine, Serum 2.35 mg/dL (0.55-1.02); EST Glomerular Filtration Rate 21 mL/min (>60); Est Glom Filt Rate - Afr Amer 26 mL/min (>60); Estimated Creatinine Clearance 19.07 ml/min; Glucose 215 mg/dL (74-106); Potassium 5.1 mmol/L (3.5-5.1); Sodium Level 145 mmol/L (136-145)
== END | disposition home or self-care (01) ==
LOC: CLSP 02-25 13:12
PROVIDERS: PCP Internal Medicine; Referring Provider Surgery Trauma Surgery; Visit Provider Surgery Trauma Surgery
DX: Z01.812 Encounter for preprocedural laboratory examination (principal); I70.25 Atherosclerosis of native arteries of other extremities with ulceration
CPT/HCPCS: 36415; 80048; 85027

== ENCOUNTER → 2022-02-25 | Outpatient (REF) | payer MEDICARE, MEDICAID, SELFPAY ==
[2022-02-25 07:49] LABS: Prealbumin 21.2 mg/dL (20.0-40.0)
== END ==
LOC: OLS.SW 05:00
PROVIDERS: PCP Internal Medicine; Visit Provider Internal Medicine
DX: T14.8XXA Other injury of unspecified body region, initial encounter (principal)
CPT/HCPCS: 36415; 84134